=== PATIENT | male | born 1990 | race Caucasian/White ===

== ENCOUNTER 2016-07-08 18:04 | Emergency (ER) | payer MEDICAID ==
[2016-07-08] MEDS ORDERED: FLUCONAZOLE 100 MG TABLET PO STA (18:19)
[2016-07-08] MEDS ORDERED: SULFAMETH/TRIMETH DS 800/160 MG TABLET PO STA (18:19)
[2016-07-08] MEDS ORDERED: SULFAMETH/TRIMETH DS 800/160 MG TABLET PO ONE (18:25)
[2016-07-08] MEDS ORDERED: FLUCONAZOLE 100 MG TABLET ONE (18:25)
== END 2016-07-08 18:28 | disposition home or self-care (01) ==
DX: L30.8 Other specified dermatitis (principal); B37.89 Other sites of candidiasis; Z86.14 Personal history of Methicillin resistant Staphylococcus aureus infection; R03.0 Elevated blood-pressure reading, without diagnosis of hypertension
CPT/HCPCS: 99283; A9270

== ENCOUNTER 2017-11-20 05:14 | Outpatient (CLI) | payer MEDICAID | END 2017-11-20 05:15 | disposition critical access hospital (66) | LOC: EMS 05:14 | PROVIDERS: ATTEND Surgery | DX: R40.20 Unspecified coma (principal) | CPT/HCPCS: A0425; A0427; A0999 ==

== ENCOUNTER 2017-11-20 05:32 | Inpatient (IN) | payer MEDICAID ==
--- NOTE | 2017-11-20 05:42 | ED Physician Documentation ---
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 Father woke at 3:15 AM to get ready for work, heard patient was snoring loudly and thus he checked on patient, found him on the floor in the bathroom with a tray that had two pills on it as well as a rolled-up piece of paper. He found the patient to be unresponsive and thus called 911. EMS reports that when they arrived, patient had respiratory rate of 3-5 breaths/minute, unresponsive to painful stimulus, pale and diaphoretic. Given narcan en route to a total of 5mg with improvement in respirations. Pulse ox on EMS initial arrival was mid-80s. Review of Systems Unable to obtain: Unresponsive PD PAST MEDICAL HISTORY - Past Medical History Past Medical History: No - Past Surgical History Past Surgical History: No - Present Medications Home Medications: Ambulatory Orders Medication Instructions Recorded Confirmed No Known Home Medications 11/20/17 11/20/17 - Allergies Allergies/Adverse Reactions: Allergies Allergy/AdvReac Type Severity Reaction Status Date / Time No Known Drug Allergies Allergy Verified 11/20/17 06:02 - Living Situation Living Situation: reports: With family Living Arrangement: reports: At home - Social History Does the pt drink ETOH?: Yes Does the pt have substance abuse?: No PD ED PE NORMAL - Vitals Vital signs reviewed: Yes - HEENT HEENT: Atraumatic, Moist mucous membranes - Cardiac Cardiac: RRR, No murmur - Respiratory Respiratory: No respiratory distress - Abdomen Abdomen: Soft, Non distended, Other (obese) - Derm Derm: Normal color, Warm and dry - Extremities Extremities: No edema - Neuro Eye Opening: None Motor: Abnormal Extension Verbal: None GCS Score: 4 PD ED PE EXPANDED - General General: Unresponsive - HEENT HEENT: Atraumatic, PERRL (small but equal and reactive to light (3mm->2mm)) - Respiratory Respiratory: Other (sonorous respirations) Results - Vitals Vitals: Vital Signs - 24 hr 09/19/18 09/19/18 09/19/18 05:35 05:54 06:00 Temperature 36.2 C L Heart Rate 90 84 Respiratory 16 29 H Rate Blood Pressure 135/117 H 138/124 H 119/60 O2 Saturation 100 100 11/20/17 11/20/17 11/20/17 06:15 06:31 07:00 Temperature Heart Rate 85 94 92 Respiratory 26 H 26 H 24 Rate Blood Pressure 136/70 H 139/77 H 121/66 O2 Saturation 98 100 95 11/20/17 11/20/17 11/20/17 07:30 07:45 08:00 Temperature Heart Rate 93 93 94 Respiratory 26 H 25 H 30 H Rate Blood Pressure 115/68 116/56 L 115/60 O2 Saturation 92 92 94 11/20/17 11/20/17 11/20/17 08:15 08:30 08:45 Temperature Heart Rate 97 95 100 Respiratory 20 20 20 Rate Blood Pressure 104/68 114/70 112/51 L O2 Saturation 95 95 96 Oxygen O2 Source Nasal cannula Oxygen Flow Rate 2 - EKG (time done) No standard instances Rate: Rate (enter#) (89) Rhythm: NSR [place]: Normal Intervals: Normal MT QRS: Normal Ischemia: Normal ST segments, Hyperacute T waves (V2-V3) - Labs Labs: Laboratory Tests 11/20/17 11/20/17 11/20/17 05:38 05:38 05:38 WBC 20.2 H RBC 4.85 Hgb 15.0 Hct 46.6 MCV 96.1 H MCH 30.9 MCHC 32.1 RDW 13.0 Plt Count 255 MPV 6.8 L Neut # (Auto) Not Reportable Lymph # (Auto) Not Reportable [place] # (Auto) Not Reportable Eos # (Auto) Not Reportable Baso # (Auto) Not Reportable Absolute Nucleated RBC Not Reportable Total Counted 100 Band Neuts % (Manual) 9 Abnorm Lymph % (Manual) 0 Metamyelocytes % 2 H Myelocytes % 2 H Nucleated RBC % Not Reportable Neutrophils # (Manual) 15.6 H Lymphocytes # (Manual) 2.8 Monocytes # (Manual) 1.0 Eosinophils # (Manual) 0.0 Basophils # (Manual) 0.0 Differential Comment MANUAL DIFFERENTIAL Platelet Estimate NORMAL (130-450,000) RBC Morph Micro Appear NORMAL APPEARANCE Sodium 141 Potassium 4.9 Chloride 103 Carbon Dioxide 19 L Anion Gap 19.0 H BUN 14 Creatinine 2.0 H Estimated GFR (MDRD) 40 L Glucose 253 H Lactic Acid Calcium 8.3 L Total Creatine Kinase 254 CK-MB (CK-2) 10.5 H Troponin I 0.05 Urine Color Urine Clarity Urine pH Ur Specific [place] Urine Protein Urine Glucose (UA) Urine Ketones Urine Occult Blood Urine Nitrite Urine Bilirubin Urine Urobilinogen Ur Leukocyte Esterase Urine RBC Urine WBC Ur Squamous Epith Cells Urine Bacteria Ur Microscopic Review Urine Culture Comments Urine Opiates Screen Ur Oxycodone Screen Urine Methadone Screen Ur Propoxyphene Screen Ur Barbiturates Screen Ur Tricyclics Screen Ur Phencyclidine Scrn Ur Amphetamine Screen U Methamphetamines Scrn U Benzodiazepines Scrn Urine Cocaine Screen U Cannabinoids Screen Ethyl Alcohol 177.9 11/20/17 11/20/17 05:38 05:40 WBC RBC Hgb Hct MCV MCH MCHC RDW Plt Count MPV Neut # (Auto) Lymph # (Auto) [place] # (Auto) Eos # (Auto) Baso # (Auto) Absolute Nucleated RBC Total Counted Band [place] % (Manual) Abnorm Lymph % (Manual) Metamyelocytes % Myelocytes % Nucleated RBC % Neutrophils # (Manual) Lymphocytes # (Manual) Monocytes # (Manual) Eosinophils # (Manual) Basophils # (Manual) Differential Comment Platelet Estimate RBC Morph Micro Appear Sodium Potassium Chloride Carbon Dioxide Anion Gap BUN Creatinine Estimated GFR (MDRD) Glucose Lactic Acid 8.0 H* Calcium Total Creatine Kinase CK-MB (CK-2) Troponin I Urine Color YELLOW Urine Clarity CLEAR Urine pH 6.0 Ur Specific [place] 1.020 Urine Protein 100 H Urine Glucose (UA) 100 H Urine Ketones NEGATIVE Urine Occult Blood MODERATE H Urine Nitrite NEGATIVE Urine Bilirubin NEGATIVE Urine Urobilinogen 0.2 (NORMAL) Ur Leukocyte Esterase NEGATIVE Urine RBC 6-10 H Urine WBC 0-3 Ur Squamous Epith Cells FEW Squamous Urine Bacteria Few Ur Microscopic Review INDICATED Urine Culture Comments NOT INDICATED Urine Opiates Screen NEGATIVE Ur Oxycodone Screen NEGATIVE Urine Methadone Screen NEGATIVE Ur Propoxyphene Screen NEGATIVE Ur Barbiturates Screen NEGATIVE Ur Tricyclics Screen NEGATIVE Ur Phencyclidine Scrn NEGATIVE Ur Amphetamine Screen NEGATIVE U Methamphetamines Scrn NEGATIVE U Benzodiazepines Scrn NEGATIVE Urine Cocaine Screen NEGATIVE U Cannabinoids Screen POSITIVE H Ethyl Alcohol - Rads (name of study) CT head Radiology: Prelim report reviewed, See rad report chest xray Radiology: Prelim report reviewed, See rad report PD MEDICAL DECISION MAKING - ED course Complexity details: reviewed old records, reviewed results, re-evaluated patient, considered differential, d/w patient, d/w family ED course: after tests resulted, patient remained unresponsive. Given 0.8mg narcan IV which did have a noticeable, immediate effect: within 30-45 seconds of receiving this dose, he opened his eyes briefly, had brief purposeful movement of arms, and responded to a few questions with nodding of his head. He rapidly fell back asleep. Eventually, he again became sonorous with shallow respirations and decreasing pulse ox (no lower than 90%, but trending downwards), and thus IV narcan drip started. He responded well to this and gradually exhibited improved mentation along with normalization of his pulse ox (with supplemental oxygen) and respiratory rate and depth of respirations. He initially denied taking any pills last night, but when pressed, he tells me "maybe percocet". - Sepsis Event Vital Signs: Vital Signs - 24 hr 11/20/17 11/20/17 11/20/17 05:35 05:54 06:00 Temperature 36.2 C L Heart Rate 90 84 Respiratory 16 29 H Rate Blood Pressure 135/117 H 138/124 H 119/60 O2 Saturation 100 100 11/20/17 11/20/17 11/20/17 06:15 06:31 07:00 Temperature Heart Rate 85 94 92 Respiratory 26 H 26 H 24 Rate Blood Pressure 136/70 H 139/77 H 121/66 O2 Saturation 98 100 95 11/20/17 11/20/17 11/20/17 07:30 07:45 08:00 Temperature Heart Rate 93 93 94 Respiratory 26 H 25 H 30 H Rate Blood Pressure 115/68 116/56 L 115/60 O2 Saturation 92 92 94 11/20/17 11/20/17 11/20/17 08:15 08:30 08:45 Temperature Heart Rate 97 95 100 Respiratory 20 20 20 Rate Blood Pressure 104/68 114/70 112/51 L O2 Saturation 95 95 96 Oxygen O2 Source Nasal cannula Oxygen Flow Rate 2 Departure - Departure Disposition: 66 [facility] DC/Xfer Clinical Impression: Overdose of drug Condition: Stable
[2017-11-20 05:52] LABS: MUDS CUTOFF CONCENTRATIONS CUTOFF CONC BELOW:
[2017-11-20 05:56] LABS: BILIRUBIN,URINE NEGATIVE (NEGATIVE); GLUCOSE, URINE (UA) 100 mg/dL (NEGATIVE); KETONES,URINE (UA) NEGATIVE (NEGATIVE); LEUKOCYTE ESTERASE, URINE NEGATIVE (NEGATIVE); NITRITE,URINE NEGATIVE (NEGATIVE); OCCULT BLOOD,URINE MODERATE (NEGATIVE); PROTEIN,URINE 100 mg/dL (NEGATIVE); UROBILINOGEN,URINE 0.2 (NORMAL) E.U./dL (NORMAL)
[2017-11-20 06:00] LABS: BASOPHILS % (AUTO) 0.4 %; EOSINOPHILS % (AUTO) 0.7 %; LYMPHOCYTES % (AUTO) 18.1 %; MEAN CORPUSCULAR HEMOGLOBIN 30.9 pg (27.0-31.0); MEAN CORPUSCULAR HGB CONC 32.1 g/dL (32.0-36.0); MEAN CORPUSCULAR VOLUME 96.1 fL (80.0-94.0); MEAN PLATELET VOLUME 6.8 fL (7.4-11.4); NEUTROPHILS % (AUTO) 79.8 %; PLT - PLATELET COUNT 255 10^3/uL (130-450); RED BLOOD COUNT 4.85 10^6/uL (4.70-6.10); WHITE BLOOD COUNT 20.2 x10^3/uL (4.8-10.8)
[2017-11-20 06:03] LABS: ABNORMAL LYMPHS % (MANUAL) 0 %; CALCIUM 8.3 mg/dL (8.5-10.3)
[2017-11-20 06:04] LABS: CLARITY,URINE CLEAR (CLEAR)
[2017-11-20 06:06] LABS: AMPHETAMINE SCREEN,URINE NEGATIVE (NEGATIVE); BENZODIAZEPINES SCREEN, URINE NEGATIVE (NEGATIVE); COCAINE SCREEN URINE NEGATIVE (NEGATIVE); METHADONE SCREEN, URINE NEGATIVE (NEGATIVE); METHAMPHETAMINES SCREEN, URINE NEGATIVE (NEGATIVE); OPIATE SCREEN, URINE NEGATIVE (NEGATIVE); OXYCODONE SCREEN, URINE NEGATIVE (NEGATIVE); PROPOXYPHENE SCREEN, URINE NEGATIVE (NEGATIVE); TRICYCLIC ANTIDEPRESSANT,URINE NEGATIVE (NEGATIVE)
[2017-11-20 06:10] LABS: SQUAMOUS EPITHELIAL CELL,UR FEW Squamous (<= Few)
[2017-11-20 06:11] LABS: TROPONIN I 0.05 ng/mL (<0.49)
[2017-11-20 06:11] LABS: BACTERIA,URINE Few /HPF (None Seen)
[2017-11-20] MEDS ORDERED: SODIUM CHLORIDE 0.9% 1,000 ML IV STA ×2 (06:11→06:18)
[2017-11-20 06:13] LABS: CREATINE KINASE MB 10.5 ng/mL (0.6-6.3)
[2017-11-20] MEDS ORDERED: NALOXONE 0.4 MG/ML VIAL IVP STA (06:21)
[2017-11-20 06:28] LABS: BAND NEUTROPHILS % (MANUAL) 9 %; DIFFERENTIAL COMMENT MANUAL DIFFERENTIAL; LYMPHOCYTES # (MANUAL) 2.8 10^3/uL (1.5-3.5); LYMPHOCYTES % (MANUAL) 14 %; METAMYELOCYTES % (MANUAL) 2 %; MYELOCYTES % (MANUAL) 2 %; NEUTROPHILS # (MANUAL) 15.6 10^3/uL (1.5-6.6); NEUTROPHILS % (MANUAL) 68 %; PLATELET ESTIMATE, MANUAL NORMAL (130-450,000) (NORMAL); RBC MORPHOLOGY (MULTIPLE) NORMAL APPEARANCE (NORMAL)
--- NOTE | 2017-11-20 06:30 | XRAY Report ---
Reason: AMS Procedure Date: 11/20/2017 Accession Number: [id number] / [id number] Procedure: XR - Chest 2 View X-Ray CPT Code: 40273 FULL RESULT: EXAM: CHEST RADIOGRAPHY EXAM DATE: 11/20/2017 06:18 AM. CLINICAL HISTORY: Found down, unresponsive. COMPARISON: None. TECHNIQUE: 2 views. FINDINGS: Lungs/Pleura: Lung volumes are small. Body habitus compromises exam sensitivity and specificity. There is possible hazy left lung opacity. No large effusion or definite pneumothorax. Mediastinum: Heart and mediastinal contours are unremarkable. Other: None. IMPRESSION: Body habitus reduces sensitivity and specificity. Possible hazy left lung opacity may be due to artifact, asymmetric edema and/or atelectasis. No consolidation. RADIA
--- NOTE | 2017-11-20 06:36 | CT Report ---
Reason: AMS Procedure Date: 11/20/2017 Accession Number: [id number] / [id number] Procedure: CT - Head W/O CPT Code: FULL RESULT: EXAM: CT HEAD EXAM DATE: 11/20/2017 06:00 AM. CLINICAL HISTORY: Altered mental status. COMPARISON: None. TECHNIQUE: Multiaxial CT images were obtained from the foramen magnum to the vertex. Reformats: Sagittal and coronal. IV contrast: None. In accordance with CT protocol optimization, one or more of the following dose reduction techniques were utilized for this exam: automated exposure control, adjustment of mA and/or KV based on patient size, or use of iterative reconstructive technique. FINDINGS: Parenchyma: No intraparenchymal hemorrhage. No evidence of mass, midline shift, or CT findings of infarction. Valentine-white differentiation is distinct. Extraaxial Spaces: Normal for age. No subdural or epidural collections identified. Ventricles: Normal in size and position. Sinuses and Orbits: Imaged paranasal sinuses, orbits, and mastoids show no significant abnormality. Bones: No evidence of fracture or calvarial defect. Other: None. IMPRESSION: Normal head CT. RADIA
[2017-11-20] MEDS ORDERED: NALOXONE 2 MG in SODIUM CHLORIDE 0.9% 495 ML IVP STA (07:35)
[2017-11-20] MEDS ORDERED: PROCHLORPERAZINE 10 MG/2 ML VIAL IVP PRN (12:54)
[2017-11-20] MEDS ORDERED: SODIUM CHLORIDE FLUSH 0.9% 10 ML SYRINGE IVP PRN (12:54)
[2017-11-20] MEDS ORDERED: NALOXONE 2 MG in SODIUM CHLORIDE 0.9% 495 ML IVP SCH (13:00)
[2017-11-20] MEDS: D5NS W/20 MEQ KCL 1,000 ML IV SCH (13:58)
[2017-11-20] MEDS: FAMOTIDINE 20 MG/50 ML 50 ML IV SCH (14:24)
[2017-11-20] MEDS: SODIUM CHLORIDE FLUSH 0.9% 10 ML SYRINGE IVP SCH (16:27)
[2017-11-21] MEDS: D5NS W/20 MEQ KCL 1,000 ML IV SCH ×3 (00:09→20:30)
[2017-11-21] MEDS: SODIUM CHLORIDE FLUSH 0.9% 10 ML SYRINGE IVP SCH ×3 (01:03→20:32)
--- NOTE | 2017-11-21 01:37 | HISTORY & PHYSICAL EXAMINATION ---
DATE OF SERVICE: 11/20/2017 Physician: Missy Valdez MD HISTORY OF PRESENT ILLNESS: This is a 27-year-old, white male with a history of obesity. He takes no routine prescription medications. The patient went out alcohol drinking with 2 friends; he normally consumes either beer or half a fifth of vodka when he drinks alcohol, but this time he drank an entire gallon of his friend's moonshine. Following that, he thinks that he tried to use oxycodone by crushing it and snorting it. He remembers "blacking out" from the alcohol use and does not remember coming home or trying to snort drugs in his home. The father heard gurgling and went to check on the patient, and found him on the floor of the bathroom, nearly comatose. He called 911. The patient's respiratory rate was 3-5 and he had decorticate posturing. In the ambulance, he was given Narcan with some awakening and then this was repeated in the emergency room, and he was put on the Narcan drip for further neurologic improvement, and he awoke and was communicating. He is getting admitted to the ICU because of abnormal blood tests and a drug overdose. PAST MEDICAL HISTORY: None. MEDICATIONS: None. ALLERGIES: NONE. SOCIAL HISTORY: The patient quit smoking 2 weeks ago, does drink alcohol, has alcohol binges, but not alcohol abuse daily. He has tried cocaine in the past and he has tried snorting oxycodone in the past. The father brought the tablets that were in the bathroom and these were compared with a pill identifying anne by the emergency room doctor. The pill was a small, round, blue, squared pill with a capital M on it and a square border with the #30 on the other side. This was consistent with oxycodone hydrochloride 30 mg, but it was of concern that this was a counterfeit opioid pill containing fentanyl (see ER doctor's note). REVIEW OF SYSTEMS: A comprehensive review of systems was performed and the pertinent positives are in the HPI. PHYSICAL EXAMINATION GENERAL: Obese, young, white male. He is in no distress. He is intermittently falling asleep as we speak and appears comfortable. VITAL SIGNS: Blood pressure 113/80, heart rate 74 and sinus rhythm, 98% saturation on 2 liters, respiratory rate 24, afebrile. HEENT: Unremarkable. Oral mucosa is moist. His dentition is good. NECK: Without JVD or carotid bruits. LUNGS: Clear. HEART: Sounds normal. ABDOMEN: Soft, nontender. Normal bowel sounds. EXTREMITIES: No clubbing, cyanosis, edema. No track carmona from IV use. NEUROLOGIC: Somnolent, but otherwise grossly intact. LABORATORIES: Lactic acid level 8.0. Troponin 0.05. White blood count 20.2 with a left shift, hemoglobin 15, platelet count 255. No INR was done. Urine showed protein and glucose that were elevated, moderate occult blood and few bacteria, but also few squamous cells. His urine drug screen was negative for everything except marijuana, and his alcohol level was 177.9. A chest x-ray was unremarkable. A head CT showed: normal head CT. EKG: Sinus rhythm at a rate of 89, somewhat peaked T waves in leads V2 through V5, but probably normal variant. IMPRESSION/DIAGNOSES 1. Drug overdose, with resultant comatose condition. 2. Alcohol intoxication, adding to the obtundation. 3. Elevated white blood count. Evaluate for sepsis vs from stress of coma. 4. Elevated lactic acid level. Evaluate for sepsis vs from stress of coma. PLAN: Admit the patient to the ICU. Start IV fluids. Follow his lactic acid level every 3 hours. Continue with the Narcan drip (this was just discontinued in the emergency room since he is able to awaken to voice). Start a clear liquid diet and advance as tolerated. Follow his CBC, BMP daily. The patient is able to communicate and states that he had no intention of overdosing or killing himself, and admits that he was making stupid decisions when he had "blacked out" from excessive alcohol use. The father confirms that the patient is usually very honest and that he knows about the compounding effects of alcohol with drugs. The patient does request speaking to a psychologist or a counselor because he has been somewhat upset over breaking up with a relationship that he had. I will ask social workers to screen him as well. CODE STATUS: FULL CODE. DEEP VENOUS THROMBOSIS PROPHYLAXIS: SCDs. ATTESTATION: The patient is expected to be discharged or transferred to another facility within 96 hours: Yes. TD: 11/20/2017 20:34 REMY
[2017-11-21 05:27] LABS: BASOPHILS % (AUTO) 0.2 %; EOSINOPHILS # (AUTO) 0.1 10^3/uL (0.0-0.7); EOSINOPHILS % (AUTO) 0.6 %; HGB - HEMOGLOBIN 12.7 g/dL (14.0-18.0); LYMPHOCYTES # (AUTO) 1.9 10^3/uL (1.5-3.5); LYMPHOCYTES % (AUTO) 19.4 %; MEAN CORPUSCULAR HEMOGLOBIN 31.4 pg (27.0-31.0); MEAN CORPUSCULAR HGB CONC 33.6 g/dL (32.0-36.0); MEAN CORPUSCULAR VOLUME 93.5 fL (80.0-94.0); MEAN PLATELET VOLUME 7.1 fL (7.4-11.4); MONOCYTES # (AUTO) 0.5 10^3/uL (0.0-1.0); MONOCYTES % (AUTO) 5.5 %; NEUTROPHILS # (AUTO) 7.3 10^3/uL (1.5-6.6); NEUTROPHILS % (AUTO) 74.3 %; PLT - PLATELET COUNT 189 10^3/uL (130-450); RED BLOOD COUNT 4.04 10^6/uL (4.70-6.10); RED CELL DISTRIBUTION WIDTH 12.9 % (12.0-15.0); WHITE BLOOD COUNT 9.9 x10^3/uL (4.8-10.8)
[2017-11-21 05:34] LABS: CALCIUM 7.8 mg/dL (8.5-10.3); CREATININE 1.1 mg/dL (0.6-1.2)
[2017-11-21 06:51] LABS: VBG PH 7.33 (7.31-7.41)
[2017-11-21] MEDS: FAMOTIDINE 20 MG/50 ML 50 ML IV SCH (09:09)
[2017-11-21] MEDS: CALCIUM CITRATE 250 MG TABLET PO SCH ×4 (10:08→22:05)
[2017-11-21] MEDS: POLYETHYLENE GLYCOL 3350 17 GM PACKET PO SCH (10:08)
[2017-11-21] MEDS ORDERED: ONDANSETRON 4 MG/2 ML VIAL IVP PRN (12:24)
--- NOTE | 2017-11-21 18:13 | PROVIDER PROGRESS NOTE ---
Assessment/Plan - Problem List (1) Opioid overdose Qualifiers: Encounter type: subsequent encounter Injury intent: accidental or unintentional Qualified Code(s): T40.2X1D - Poisoning by other opioids, accidental (unintentional), subsequent encounter Assessment/Plan: Patient presented to the emergency department with what appears to have been a opioid overdose. The patient was intoxicated with alcohol and blacked out. He is presumed to have taken what he thought was oxycodone but may have been fentanyl which he received off the street. Due to this the patient had severe respiratory depression and presented with a severe lactic acidosis of 8.0. The patient was placed on a Narcan drip and given IV fluids also initially placed on BiPAP and on oxygen. The patient seems to be improving significantly and is back to his normal mentation. The patient states he did not try to intentionally overdose or kill himself. Resolved (2) Alcohol intoxication Qualifiers: Complication of substance-induced condition: with unspecified complication Qualified Code(s): F10.929 - Alcohol use, unspecified with intoxication, unspecified Assessment/Plan: The patient drank excessive amount of alcohol prior to taking opioids. The patient came into the hospital with a blood alcohol level of 177.9. The patient appears not to be sober. The patient was counseled on the need to cut down on alcohol consumption. The patient appeared to understand this. Resolved (3) Rhabdomyolysis Qualifiers: Rhabdomyolysis type: non-traumatic Qualified Code(s): M62.82 - Rhabdomyolysis Assessment/Plan: Due to the drug overdose the patient developed rhabdomyolysis with CK elevated to 4034. The patient has been given IV fluids and CK seems to be improving as it is down to 2793 today. We will continue to monitor the patient's CK if it continues to drop the patient may be able to be discharged tomorrow. (4) DARY (acute kidney injury) Assessment/Plan: The patient did have acute kidney injury on presentation with a creatinine of 2.0. The patient's likely cause of acute kidney injury was dehydration from alcohol consumption as well as endorgan damage from opiate overdose. The patient's creatinine is improving with IV fluids and treatment of his opiate overdose. The patient's creatinine is down to 1.1 today. (5) Lactic acidosis Assessment/Plan: Patient presented with a severe lactic acidosis of 8.0 secondary to opiate overdose and likely hypotension and hypoperfusion of and organs. The patient did improve with Narcan. Patient's lactic acidosis back to normal. Resolved. (6) Narcotic-induced respiratory depression Assessment/Plan: Results with Narcan drip and BiPAP. Patient now on room air and has normal respirations. - Current Meds Current Meds: Current Medications Generic Name Dose Route Start Last Admin Trade Name Freq PRN Reason Stop Dose Admin Calcium Citrate 500 mg 11/21/17 09:00 11/21/17 15:10 PO 11/21/17 21:01 500 mg QID DANIEL Administration Protocol Potassium Chloride/Dextrose/Sod Cl 1,000 mls @ 100 mls/hr 11/20/17 13:00 11/21/17 10:42 IV 100 mls/hr .Q10H DANIEL Administration Famotidine 50 mls @ 100 mls/hr 11/20/17 13:00 11/21/17 09:40 Pepcid 20 Mg/50 Ml IV Infused DAILY DANIEL Infusion Polyethylene Glycol 17 gm 11/21/17 09:00 11/21/17 10:08 Miralax PO Not Given DAILY DANIEL Sodium Chloride 10 ml 11/20/17 17:00 11/21/17 10:09 Normal Saline Flush 0.9% IVP Not Given 0100,0900,1700 DANIEL Sodium Chloride 10 ml 11/20/17 12:54 11/20/17 14:00 Normal Saline Flush 0.9% IVP 10 ml PRN PRN Administration NEEDED PER PROVIDER ORDERS - Lab Result Lab results reviewed: Yes Fish Bone Diagrams: 11/21/17 04:30 11/21/17 04:30 Other Lab Results: Laboratory Results WBC 9.9 x10^3/uL (4.8-10.8) 11/21/17 04:30 RBC 4.04 10^6/uL (4.70-6.10) L 11/21/17 04:30 Hgb 12.7 g/dL (14.0-18.0) L 11/21/17 04:30 Hct 37.8 % (42.0-52.0) L 11/21/17 04:30 MCV 93.5 fL (80.0-94.0) 11/21/17 04:30 MCH 31.4 pg (27.0-31.0) H 11/21/17 04:30 MCHC 33.6 g/dL (32.0-36.0) 11/21/17 04:30 RDW 12.9 % (12.0-15.0) 11/21/17 04:30 Plt Count 189 10^3/uL (130-450) 11/21/17 04:30 MPV 7.1 fL (7.4-11.4) L 11/21/17 04:30 Neut # (Auto) 7.3 10^3/uL (1.5-6.6) H 11/21/17 04:30 Lymph # (Auto) 1.9 10^3/uL (1.5-3.5) 11/21/17 04:30 [place] # (Auto) 0.5 10^3/uL (0.0-1.0) 11/21/17 04:30 Eos # (Auto) 0.1 10^3/uL (0.0-0.7) 11/21/17 04:30 Baso # (Auto) 0.0 10^3/uL (0.0-0.1) 11/21/17 04:30 Absolute Nucleated RBC 0.01 x10^3/uL 11/21/17 04:30 Total Counted 100 11/20/17 05:38 Band Neuts % (Manual) 9 % (0-10) 11/20/17 05:38 Abnorm Lymph % (Manual) 0 % 11/20/17 05:38 Metamyelocytes % 2 % (-0) H 11/20/17 05:38 Myelocytes % 2 % (-0) H 11/20/17 05:38 Nucleated RBC % 0.1 /100WBC 11/21/17 04:30 Neutrophils # (Manual) 15.6 10^3/uL (1.5-6.6) H 11/20/17 05:38 Lymphocytes # (Manual) 2.8 10^3/uL (1.5-3.5) 11/20/17 05:38 Monocytes # (Manual) 1.0 10^3/uL (0.0-1.0) 11/20/17 05:38 Eosinophils # (Manual) 0.0 10^3/uL (0-0.7) 11/20/17 05:38 Basophils # (Manual) 0.0 10^3/uL (0-0.1) 11/20/17 05:38 Differential Comment MANUAL DIFFERENTIAL 11/20/17 05:38 Platelet Estimate NORMAL (130-450,000) (NORMAL) 11/20/17 05:38 RBC Morph Micro Appear NORMAL APPEARANCE (NORMAL) 11/20/17 05:38 VBG pH 7.330 (7.31-7.41) 11/21/17 06:20 Ionized Calcium 1.07 mmol/L (1.15-1.33) L 11/21/17 06:20 Sodium 135 mmol/L (135-145) 11/21/17 04:30 Potassium 4.4 mmol/L (3.5-5.0) 11/21/17 04:30 Chloride 101 mmol/L (101-111) 11/21/17 04:30 Carbon Dioxide 28 mmol/L (21-32) 11/21/17 04:30 Anion Gap 6.0 (6-13) 11/21/17 04:30 BUN 17 mg/dL (6-20) 11/21/17 04:30 Creatinine 1.1 mg/dL (0.6-1.2) 11/21/17 04:30 Estimated GFR (MDRD) 80 (>89) L 11/21/17 04:30 Glucose 124 mg/dL (70-100) H 11/21/17 04:30 Lactic Acid 1.5 mmol/L (0.5-2.2) 11/20/17 15:03 Calcium 7.8 mg/dL (8.5-10.3) L 11/21/17 04:30 Total Creatine Kinase 2793 IU/L (22-269) H* 11/21/17 16:47 CK-MB (CK-2) 10.5 ng/mL (0.6-6.3) H 11/20/17 05:38 Troponin I 0.05 ng/mL (<0.49) 11/20/17 05:38 Albumin 3.5 g/dL (3.2-5.5) 11/21/17 04:30 Urine Color YELLOW 11/20/17 05:40 Urine Clarity CLEAR (CLEAR) 11/20/17 05:40 Urine pH 6.0 PH (5.0-7.5) 11/20/17 05:40 Ur Specific [place] 1.020 (1.002-1.030) 11/20/17 05:40 Urine Protein 100 mg/dL (NEGATIVE) H 11/20/17 05:40 Urine Glucose (UA) 100 mg/dL (NEGATIVE) H 11/20/17 05:40 Urine Ketones NEGATIVE mg/dL (NEGATIVE) 11/20/17 05:40 Urine Occult Blood MODERATE (NEGATIVE) H 11/20/17 05:40 Urine Nitrite NEGATIVE (NEGATIVE) 11/20/17 05:40 Urine Bilirubin NEGATIVE (NEGATIVE) 11/20/17 05:40 Urine Urobilinogen 0.2 (NORMAL) E.U./dL (NORMAL) 11/20/17 05:40 Ur Leukocyte Esterase NEGATIVE (NEGATIVE) 11/20/17 05:40 Urine RBC 6-10 /HPF (0-5) H 11/20/17 05:40 Urine WBC 0-3 /HPF (0-3) 11/20/17 05:40 Ur Squamous Epith Cells FEW Squamous (<= Few) 11/20/17 05:40 Urine Bacteria Few /HPF (None Seen) 11/20/17 05:40 Ur Microscopic Review INDICATED 11/20/17 05:40 Urine Culture Comments NOT INDICATED 11/20/17 05:40 Urine Opiates Screen NEGATIVE (NEGATIVE) 11/20/17 05:40 Ur Oxycodone Screen NEGATIVE (NEGATIVE) 11/20/17 05:40 Urine Methadone Screen NEGATIVE (NEGATIVE) 11/20/17 05:40 Ur Propoxyphene Screen NEGATIVE (NEGATIVE) 11/20/17 05:40 Ur Barbiturates Screen NEGATIVE (NEGATIVE) 11/20/17 05:40 Ur Tricyclics Screen NEGATIVE (NEGATIVE) 11/20/17 05:40 Ur Phencyclidine Scrn NEGATIVE (NEGATIVE) 11/20/17 05:40 Ur Amphetamine Screen NEGATIVE (NEGATIVE) 11/20/17 05:40 U Methamphetamines Scrn NEGATIVE (NEGATIVE) 11/20/17 05:40 U Benzodiazepines Scrn NEGATIVE (NEGATIVE) 11/20/17 05:40 Urine Cocaine Screen NEGATIVE (NEGATIVE) 11/20/17 05:40 U Cannabinoids Screen POSITIVE (NEGATIVE) H 11/20/17 05:40 Ethyl Alcohol 177.9 mg/dL 11/20/17 05:38 - Diagnostic Imaging Results Diagnostic Imaging Results: Final report reviewed - Additional Planning Condition/Complexity: Guarded My Orders: My Active Orders 11/21/17 12:24 Ondansetron Inj [Zofran Inj] 4 mg IVP Q4HR PRN 11/22/17 05:00 CBC W/O DIFF (HEMOGRAM) [HEME] DAILYLAB CK- CREATINE KINASE [CHEM] 0500 CMP, RFLX TO IONIZED CA IF [CHEM] DAILYLAB MAGNESIUM [CHEM] DAILYLAB PHOSPHORUS [CHEM] DAILYLAB Plan Discussed with:: Patient, Family, Father Time Spent: 31-60 minutes Subjective - Subjective Patient Reports: Feeling Better, Resting Comfortably, Other (Generalized weakness and body aches) Nursing Reports: No Complaints Objective Vital Signs: Vital Signs - 24 hr 11/20/17 11/20/17 11/20/17 19:00 20:00 21:00 Temperature 37.1 C Heart Rate [ 78 74 74 Monitoring electrodes] Respiratory 26 H 25 H 22 Rate Blood Pressure 118/57 L 115/57 L 110/65 [Right Brachial artery] O2 Saturation 98 99 100 11/20/17 11/20/17 11/21/17 22:00 23:00 00:00 Temperature 37.1 C Heart Rate [ 74 63 68 Monitoring electrodes] Respiratory 16 22 22 Rate Blood Pressure 97/61 119/74 122/68 [Right Brachial artery] O2 Saturation 97 99 99 11/21/17 11/21/17 11/21/17 01:00 02:00 03:00 Temperature Heart Rate [ 64 73 65 Monitoring electrodes] Respiratory 19 23 20 Rate Blood Pressure 113/68 117/66 118/65 [Right Brachial artery] O2 Saturation 100 99 98 11/21/17 11/21/17 11/21/17 04:00 05:00 06:00 Temperature Heart Rate [ 61 60 61 Monitoring electrodes] Respiratory 21 21 20 Rate Blood Pressure 112/68 127/64 127/75 [Right Brachial artery] O2 Saturation 99 94 98 11/21/17 11/21/17 11/21/17 07:00 08:00 09:00 Temperature 36.8 C Heart Rate [ 66 70 54 L Monitoring electrodes] Respiratory 20 17 16 Rate Blood Pressure 117/69 133/71 H 134/80 H [Right Brachial artery] O2 Saturation 98 97 94 11/21/17 11/21/17 11/21/17 10:00 11:00 12:00 Temperature Heart Rate [ 63 58 L 88 Monitoring electrodes] Respiratory 15 23 25 H Rate Blood Pressure 153/102 H 147/80 H 147/80 H [Right Brachial artery] O2 Saturation 94 96 11/21/17 11/21/17 11/21/17 13:00 14:00 15:00 Temperature 37.5 C Heart Rate [ 63 60 61 Monitoring electrodes] Respiratory 22 28 H 28 H Rate Blood Pressure 139/73 H 129/80 127/77 [Right Brachial artery] O2 Saturation 95 96 96 11/21/17 11/21/17 11/21/17 16:00 17:00 18:00 Temperature 37.4 C Heart Rate [ 56 L 65 64 Monitoring electrodes] Respiratory 28 H 24 73 H Rate Blood Pressure 142/75 H 163/86 H [Right Brachial artery] O2 Saturation 95 95 96 Oxygen O2 Source Room air Oxygen Flow Rate 2 I&O (Last 24 Hrs): Intake and Output Totals x24h 11/19/17 11/20/17 11/21/17 23:59 23:59 23:59 Intake Total 3423.333 3175 Output Total 19995 Balance 5564.453 6348 General: Alert, Oriented x3, Cooperative, No acute distress HEENT: Atraumatic, PERRLA, EOMI, Mucous membr. moist/pink Neck: Supple, No JVD, No thyromegaly, +2 carotid pulse wo bruit, No LAD Lymphatic: no adenopathy Neuro: Alert, CN 2-12 Grossly Intact, Oriented Times 3 Cardiovascular: Regular rate, Normal S1, Normal S2, No murmurs Respiratory: Chest non-tender, No respiratory distress, Breath sounds nml Abdomen: Normal bowel sounds, Soft, No tenderness, No hepatospenomegaly, No masses Extremities: No clubbing, No cyanosis, No edema, Normal pulses, No tenderness/sw elling Skin: No rashes, No breakdown, No significant lesion - Results Results: Laboratory Results WBC 9.9 x10^3/uL (4.8-10.8) 11/21/17 04:30 RBC 4.04 10^6/uL (4.70-6.10) L 11/21/17 04:30 Hgb 12.7 g/dL (14.0-18.0) L 11/21/17 04:30 Hct 37.8 % (42.0-52.0) L 11/21/17 04:30 MCV 93.5 fL (80.0-94.0) 11/21/17 04:30 MCH 31.4 pg (27.0-31.0) H 11/21/17 04:30 MCHC 33.6 g/dL (32.0-36.0) 11/21/17 04:30 RDW 12.9 % (12.0-15.0) 11/21/17 04:30 Plt Count 189 10^3/uL (130-450) 11/21/17 04:30 MPV 7.1 fL (7.4-11.4) L 11/21/17 04:30 Neut # (Auto) 7.3 10^3/uL (1.5-6.6) H 11/21/17 04:30 Lymph # (Auto) 1.9 10^3/uL (1.5-3.5) 11/21/17 04:30 [place] # (Auto) 0.5 10^3/uL (0.0-1.0) 11/21/17 04:30 Eos # (Auto) 0.1 10^3/uL (0.0-0.7) 11/21/17 04:30 Baso # (Auto) 0.0 10^3/uL (0.0-0.1) 11/21/17 04:30 Absolute Nucleated RBC 0.01 x10^3/uL 11/21/17 04:30 Total Counted 100 11/20/17 05:38 Band Neuts % (Manual) 9 % (0-10) 11/20/17 05:38 Abnorm Lymph % (Manual) 0 % 11/20/17 05:38 Metamyelocytes % 2 % (-0) H 11/20/17 05:38 Myelocytes % 2 % (-0) H 11/20/17 05:38 Nucleated RBC % 0.1 /100WBC 11/21/17 04:30 Neutrophils # (Manual) 15.6 10^3/uL (1.5-6.6) H 11/20/17 05:38 Lymphocytes # (Manual) 2.8 10^3/uL (1.5-3.5) 11/20/17 05:38 Monocytes # (Manual) 1.0 10^3/uL (0.0-1.0) 11/20/17 05:38 Eosinophils # (Manual) 0.0 10^3/uL (0-0.7) 11/20/17 05:38 Basophils # (Manual) 0.0 10^3/uL (0-0.1) 11/20/17 05:38 Differential Comment MANUAL DIFFERENTIAL 11/20/17 05:38 Platelet Estimate NORMAL (130-450,000) (NORMAL) 11/20/17 05:38 RBC Morph Micro Appear NORMAL APPEARANCE (NORMAL) 11/20/17 05:38 VBG pH 7.330 (7.31-7.41) 11/21/17 06:20 Ionized Calcium 1.07 mmol/L (1.15-1.33) L 11/21/17 06:20 Sodium 135 mmol/L (135-145) 11/21/17 04:30 Potassium 4.4 mmol/L (3.5-5.0) 11/21/17 04:30 Chloride 101 mmol/L (101-111) 11/21/17 04:30 Carbon Dioxide 28 mmol/L (21-32) 11/21/17 04:30 Anion Gap 6.0 (6-13) 11/21/17 04:30 BUN 17 mg/dL (6-20) 11/21/17 04:30 Creatinine 1.1 mg/dL (0.6-1.2) 11/21/17 04:30 Estimated GFR (MDRD) 80 (>89) L 11/21/17 04:30 Glucose 124 mg/dL (70-100) H 11/21/17 04:30 Lactic Acid 1.5 mmol/L (0.5-2.2) 11/20/17 15:03 Calcium 7.8 mg/dL (8.5-10.3) L 11/21/17 04:30 Total Creatine Kinase 2793 IU/L (22-269) H* 11/21/17 16:47 CK-MB (CK-2) 10.5 ng/mL (0.6-6.3) H 11/20/17 05:38 Troponin I 0.05 ng/mL (<0.49) 11/20/17 05:38 Albumin 3.5 g/dL (3.2-5.5) 11/21/17 04:30 Urine Color YELLOW 11/20/17 05:40 Urine Clarity CLEAR (CLEAR) 11/20/17 05:40 Urine pH 6.0 PH (5.0-7.5) 11/20/17 05:40 Ur Specific [place] 1.020 (1.002-1.030) 11/20/17 05:40 Urine Protein 100 mg/dL (NEGATIVE) H 11/20/17 05:40 Urine Glucose (UA) 100 mg/dL (NEGATIVE) H 11/20/17 05:40 Urine Ketones NEGATIVE mg/dL (NEGATIVE) 11/20/17 05:40 Urine Occult Blood MODERATE (NEGATIVE) H 11/20/17 05:40 Urine Nitrite NEGATIVE (NEGATIVE) 11/20/17 05:40 Urine Bilirubin NEGATIVE (NEGATIVE) 11/20/17 05:40 Urine Urobilinogen 0.2 (NORMAL) E.U./dL (NORMAL) 11/20/17 05:40 Ur Leukocyte Esterase NEGATIVE (NEGATIVE) 11/20/17 05:40 Urine RBC 6-10 /HPF (0-5) H 11/20/17 05:40 Urine WBC 0-3 /HPF (0-3) 11/20/17 05:40 Ur Squamous Epith Cells FEW Squamous (<= Few) 11/20/17 05:40 Urine Bacteria Few /HPF (None Seen) 11/20/17 05:40 Ur Microscopic Review INDICATED 11/20/17 05:40 Urine Culture Comments NOT INDICATED 11/20/17 05:40 Urine Opiates Screen NEGATIVE (NEGATIVE) 11/20/17 05:40 Ur Oxycodone Screen NEGATIVE (NEGATIVE) 11/20/17 05:40 Urine Methadone Screen NEGATIVE (NEGATIVE) 11/20/17 05:40 Ur Propoxyphene Screen NEGATIVE (NEGATIVE) 11/20/17 05:40 Ur Barbiturates Screen NEGATIVE (NEGATIVE) 11/20/17 05:40 Ur Tricyclics Screen NEGATIVE (NEGATIVE) 11/20/17 05:40 Ur Phencyclidine Scrn NEGATIVE (NEGATIVE) 11/20/17 05:40 Ur Amphetamine Screen NEGATIVE (NEGATIVE) 11/20/17 05:40 U Methamphetamines Scrn NEGATIVE (NEGATIVE) 11/20/17 05:40 U Benzodiazepines Scrn NEGATIVE (NEGATIVE) 11/20/17 05:40 Urine Cocaine Screen NEGATIVE (NEGATIVE) 11/20/17 05:40 U Cannabinoids Screen POSITIVE (NEGATIVE) H 11/20/17 05:40 Ethyl Alcohol 177.9 mg/dL 11/20/17 05:38 ABX Reporting Has patient been on IV antibiotics over the past 48 hours?: No Current Medications - Current Medications Current Medications: Active Medications Generic Name Dose Route Start Last Admin Trade Name Freq PRN Reason Stop Dose Admin Calcium Citrate 500 mg 11/21/17 09:00 11/21/17 15:10 PO 11/21/17 21:01 500 mg QID DANIEL Administration Protocol Potassium Chloride/Dextrose/Sod Cl 1,000 mls @ 100 mls/hr 11/20/17 13:00 11/21/17 10:42 IV 100 mls/hr .Q10H DANIEL Administration Famotidine 50 mls @ 100 mls/hr 11/20/17 13:00 11/21/17 09:40 Pepcid 20 Mg/50 Ml IV Infused DAILY DANIEL Infusion Ondansetron HCl 4 mg 11/21/17 12:24 Zofran Inj IVP Q4HR PRN Nausea / Vomiting Polyethylene Glycol 17 gm 11/21/17 09:00 11/21/17 10:08 Miralax PO Not Given DAILY DANIEL Prochlorperazine Edisylate 10 mg 11/20/17 12:54 Compazine Inj IVP Q6HR PRN Nausea / Vomiting Sodium Chloride 10 ml 11/20/17 17:00 11/21/17 10:09 Normal Saline Flush 0.9% IVP Not Given 0100,0900,1700 DANIEL Sodium Chloride 10 ml 11/20/17 12:54 11/20/17 14:00 Normal Saline Flush 0.9% IVP 10 ml PRN PRN Administration NEEDED PER PROVIDER ORDERS Esomeprazole Magnesium [Nexium 24Hr] 20 mg PO DAILY 11/21/17 Multivitamin [Theragran] 1 each PO DAILY 11/21/17
[2017-11-22 05:17] LABS: HGB - HEMOGLOBIN 12.4 g/dL (14.0-18.0); MEAN CORPUSCULAR HEMOGLOBIN 32.3 pg (27.0-31.0); MEAN CORPUSCULAR VOLUME 92.3 fL (80.0-94.0); MEAN PLATELET VOLUME 7.8 fL (7.4-11.4); RED BLOOD COUNT 3.85 10^6/uL (4.70-6.10); RED CELL DISTRIBUTION WIDTH 12.6 % (12.0-15.0); WHITE BLOOD COUNT 7.2 x10^3/uL (4.8-10.8)
[2017-11-22 05:38] LABS: ALBUMIN 3.3 g/dL (3.2-5.5); ALBUMIN/GLOBULIN RATIO 1.3 (1.0-2.2); ALKALINE PHOSPHATASE 53 IU/L (42-121); ALT ALANINE AMINOTRANSFERASE 1148 IU/L (10-60); AST ASPARTATE AMINOTRANSFERASE 693 IU/L (10-42); BILIRUBIN,TOTAL 0.9 mg/dL (0.2-1.0); BUN - BLOOD UREA NITROGEN 10 mg/dL (6-20); CALCIUM 8.7 mg/dL (8.5-10.3); CARBON DIOXIDE - CO2 28 mmol/L (21-32); CHLORIDE 103 mmol/L (101-111); GFR - MDRD 90 (>89); GLUCOSE 136 mg/dL (70-100); MAGNESIUM 1.7 mg/dL (1.7-2.8); PHOSPHORUS 2.5 mg/dL (2.5-4.6); SODIUM 137 mmol/L (135-145); TOTAL PROTEIN 5.8 g/dL (6.7-8.2)
[2017-11-22 05:45] LABS: CK- CREATINE KINASE 1948 IU/L (22-269)
[2017-11-22] MEDS: SODIUM CHLORIDE FLUSH 0.9% 10 ML SYRINGE IVP SCH (05:55)
[2017-11-22] MEDS: D5NS W/20 MEQ KCL 1,000 ML IV SCH (06:35)
[2017-11-22] MEDS: FAMOTIDINE 20 MG/50 ML 50 ML IV SCH (08:00)
[2017-11-22 08:04] VITALS: BP 160/116
[2017-11-22] MEDS: POLYETHYLENE GLYCOL 3350 17 GM PACKET PO SCH (08:49)
--- NOTE | 2017-11-22 10:44 | Discharge Plan ---
Discharge Plan Disposition: 01 Home, Self Care Condition: Fair Diet: Regular Activity Restrictions: No Restrictions Shower Restrictions: No Driving Restrictions: No Weight Bearing: Full Weight Instruction Topics: Addiction Marijuana Signs Additional Instructions or Follow Up instructions: Please follow-up with your primary care physician to have your labs rechecked to ensure all your vital organ function has returned to normal. Please refrain from drinking excessive amounts of alcohol and taking narcotic medications that have not been prescribed to you. No Smoking: If you smoke, Please STOP! Call for help. Follow-up with: Gladys Faria ARNP [Provider Admit Priv/Credential] -
--- NOTE | 2017-11-22 10:48 | DISCHARGE SUMMARY ---
Discharge Summary Admit Date: 11/20/17 Discharge Date: 11/22/17 Discharging Provider: Carlton Contreras Primary Care Provider: Gladys HARRISON Code Status: Attempt Resuscitation Condition at Discharge: Fair Discharge Disposition: 01 Home, Self Care - DIAGNOSES Admission Diagnoses: 1. Drug overdose 2. Alcohol intoxication 3. Elevated white blood cell count 4. Elevated lactic acid level Discharge Diagnoses with Status of Each Condition: 1. Opioid overdose: Resolved 2. Alcohol intoxication: Resolved 3. Rhabdomyolysis: Improved 4. Acute kidney injury: Resolved 5. Elevated LFTs: Guarded 6. Lactic acidosis: Resolved 7. Narcotic induced respiratory depression: Resolved - HPI History of Present Illness: Patient is a 27-year-old gentleman with a past medical history significant for obesity. He takes no routine prescription medications. The patient went out with 2 friends and was drinking alcohol. He states he normally consumes either beer or half 1/5 of vodka when he drinks alcohol, but this time he drank an entire gallon of his friends moonshine. Following that, he thinks that he tried to use oxycodone by crushing it and snorting it. He remembers blacking out from the alcohol use and does not remember coming home or trying to snort drugs in his home. The patient's father heard gurgling and went to check on his son and found him on the floor of the bathroom nearly comatose. He called 911. The patient's respiratory rate was 3-5 breaths per minute and he was decorticate posturing. In the ambulance, the patient was given Narcan with some awakening and then this was repeated in the emergency department, and he was put on the Narcan drip for further neurologic improvement, and he woke up and was communicating. He was admitted to the ICU because of abnormal blood tests and drug overdose. The patient was found to have a lactic acid of 8.0 on presentation, creatinine of 2.0 and a leukocytosis of 20.2. The patient was also found to have rhabdomyolysis with a total CK of 4035. - HOSPITAL COURSE Hospital Course: (1) Opioid overdose Qualifiers: Encounter type: subsequent encounter Injury intent: accidental or unintentional Qualified Code(s): T40.2X1D - Poisoning by other opioids, accidental (unintentional), subsequent encounter Assessment/Plan: Patient presented to the emergency department with what appears to have been a opioid overdose. The patient was intoxicated with alcohol and blacked out. He is presumed to have taken what he thought was oxycodone but may have been fentanyl which he received off the street. Due to this the patient had severe respiratory depression and presented with a severe lactic acidosis of 8.0. The patient was placed on a Narcan drip and given IV fluids also initially placed on BiPAP and on oxygen. The patient seems to be improving significantly and is back to his normal mentation. The patient states he did not try to intent ionally overdose or kill himself. Resolved (2) Alcohol intoxication Qualifiers: Complication of substance-induced condition: with unspecified complication Qualified Code(s): F10.929 - Alcohol use, unspecified with intoxication, u nspecified Assessment/Plan: The patient drank excessive amount of alcohol prior to taking opioids. The patient came into the hospital with a blood alcohol level of 177.9. The patient appears not to be sober. The patient was counseled on the need to cut down on alcohol consumption. The patient appeared to understand this. Resolved (3) Rhabdomyolysis Qualifiers: Rhabdomyolysis type: non-traumatic Qualified Code(s): M62.82 - Rhabdomyolysis Assessment/Plan: Due to the drug overdose the patient developed rhabdomyolysis with CK elevated to 4034. The patient has been given IV fluids and CK improved down to 1948 prior to discharge. Patients renal function also improved and patient was stable for discharge. Patient was not having any muscle weakness or muscle pain at discharge. Resolving. (4) DARY (acute kidney injury) Assessment/Plan: The patient did have acute kidney injury on presentation with a creatinine of 2.0. The patient's likely cause of acute kidney injury was dehydration from alcohol consumption as well as end-organ damage from opiate overdose. The patient's creatinine is improved with IV fluids and treatment of his opiate overdose. The patient's creatinine is down to 1.0 at time of discharge. Resolved (5) Elevated LFTs Assessment/Plan: On presentation to the emergency department the patient did not have LFTs checked. However on the day of discharge patient's LFTs were checked and found to have be elevated with an AST of 693 and an ALT of 1148. Given the patient's presentation these were likely due to a shock liver from the patient's comatose state and overall hypoxic condition due to the drug overdose. I have requested that the patient follow-up with his primary care physician to get a CMP checked in the next week to ensure that these levels do come back to the normal range. The patient otherwise was having no symptoms of abdominal pain, fevers or any other symptoms to suggest that this was anything else. (6) Lactic acidosis Assessment/Plan: Patient presented with a severe lactic acidosis of 8.0 secondary to opiate overdose and likely hypotension and hypoperfusion of and organs. The patient did improve with Narcan. Patient's lactic acidosis back to normal. Resolved. (7) Narcotic-induced respiratory depression Assessment/Plan: Results with Narcan drip and BiPAP. Patient now on room air and has normal respirations. Resolved - ALLERGIES Allergies/Adverse Reactions: Allergies Allergy/AdvReac Type Severity Reaction Status Date / Time No Known Drug Allergies Allergy Verified 11/20/17 06:02 - MEDICATIONS Home Medications: Ambulatory Orders Medication Instructions Recorded Confirmed Esomeprazole Magnesium [Nexium 20 mg PO DAILY 11/21/17 11/21/17 24Hr] Multivitamin [Theragran] 1 each PO DAILY 11/21/17 11/21/17 - PHYSICAL EXAM AT DISCHARGE General Appearance: positive: No acute distress, Alert Eyes Bilateral: positive: Normal inspection, PERRL, EOMI, No lid inflammation, C onjunctivae nml, No scleral icterus ENT: positive: ENT inspection nml, Pharynx nml, No signs of dehydration. negative: Purulent nasal drainage, Pharyngeal erythema, Oral lesions Neck: positive: Nml inspection, Thyroid nml, No JVD, Trachea midline. negative: Thyromegaly, Lymphadenopathy (R), Lymphadenopathy (L), Stiff neck, Carotid bruit, Tracheal deviation Respiratory: positive: Chest non-tender, No respiratory distress, Breath sounds nml. negative: Wheezes, Rales, Rhonchi Cardiovascular: positive: Regular rate & rhythm, No murmur, No gallop Peripheral Pulses: positive: 2+ Abdomen: positive: Non-tender, No organomegaly, Nml bowel sounds, No distention. negative: Guarding, Rebound, Hepatomegaly Back: positive: Nml inspection. negative: CVA tenderness (R), CVA tenderness (L) Skin: positive: Color nml, No rash, Warm. negative: Cyanosis, Diaphoresis, Pallor Extremities: positive: Non-tender, Full ROM, Nml appearance, No pedal edema Neurologic/Psychiatric: positive: Oriented x3, CN's nml (2-12), Motor nml, Sensation nml, Mood/affect nml - LABS Result Diagrams: 11/22/17 04:50 11/22/17 04:50 Other Lab Results: Laboratory Results WBC 7.2 x10^3/uL (4.8-10.8) 11/22/17 04:50 RBC 3.85 10^6/uL (4.70-6.10) L 11/22/17 04:50 Hgb 12.4 g/dL (14.0-18.0) L 11/22/17 04:50 Hct 35.6 % (42.0-52.0) L 11/22/17 04:50 MCV 92.3 fL (80.0-94.0) 11/22/17 04:50 MCH 32.3 pg (27.0-31.0) H 11/22/17 04:50 MCHC 35.0 g/dL (32.0-36.0) 11/22/17 04:50 RDW 12.6 % (12.0-15.0) 11/22/17 04:50 Plt Count 173 10^3/uL (130-450) 11/22/17 04:50 MPV 7.8 fL (7.4-11.4) 11/22/17 04:50 Neut # (Auto) 7.3 10^3/uL (1.5-6.6) H 11/21/17 04:30 Lymph # (Auto) 1.9 10^3/uL (1.5-3.5) 11/21/17 04:30 [place] # (Auto) 0.5 10^3/uL (0.0-1.0) 11/21/17 04:30 Eos # (Auto) 0.1 10^3/uL (0.0-0.7) 11/21/17 04:30 Baso # (Auto) 0.0 10^3/uL (0.0-0.1) 11/21/17 04:30 Absolute Nucleated RBC 0.01 x10^3/uL 11/21/17 04:30 Total Counted 100 11/20/17 05:38 Band Neuts % (Manual) 9 % (0-10) 11/20/17 05:38 Abnorm Lymph % (Manual) 0 % 11/20/17 05:38 Metamyelocytes % 2 % (-0) H 11/20/17 05:38 Myelocytes % 2 % (-0) H 11/20/17 05:38 Nucleated RBC % 0.1 /100WBC 11/21/17 04:30 Neutrophils # (Manual) 15.6 10^3/uL (1.5-6.6) H 11/20/17 05:38 Lymphocytes # (Manual) 2.8 10^3/uL (1.5-3.5) 11/20/17 05:38 Monocytes # (Manual) 1.0 10^3/uL (0.0-1.0) 11/20/17 05:38 Eosinophils # (Manual) 0.0 10^3/uL (0-0.7) 11/20/17 05:38 Basophils # (Manual) 0.0 10^3/uL (0-0.1) 11/20/17 05:38 Differential Comment MANUAL DIFFERENTIAL 11/20/17 05:38 Platelet Estimate NORMAL (130-450,000) (NORMAL) 11/20/17 05:38 RBC Morph Micro Appear NORMAL APPEARANCE (NORMAL) 11/20/17 05:38 VBG pH 7.330 (7.31-7.41) 11/21/17 06:20 Ionized Calcium 1.07 mmol/L (1.15-1.33) L 11/21/17 06:20 Sodium 137 mmol/L (135-145) 11/22/17 04:50 Potassium 4.5 mmol/L (3.5-5.0) 11/22/17 04:50 Chloride 103 mmol/L (101-111) 11/22/17 04:50 Carbon Dioxide 28 mmol/L (21-32) 11/22/17 04:50 Anion Gap 6.0 (6-13) 11/22/17 04:50 BUN 10 mg/dL (6-20) 11/22/17 04:50 Creatinine 1.0 mg/dL (0.6-1.2) 11/22/17 04:50 Estimated GFR (MDRD) 90 (>89) 11/22/17 04:50 Glucose 136 mg/dL (70-100) H 11/22/17 04:50 Lactic Acid 1.5 mmol/L (0.5-2.2) 11/20/17 15:03 Calcium 8.7 mg/dL (8.5-10.3) 11/22/17 04:50 Ionized Calcium NO 11/22/17 04:50 Phosphorus 2.5 mg/dL (2.5-4.6) 11/22/17 04:50 Magnesium 1.7 mg/dL (1.7-2.8) 11/22/17 04:50 Total Bilirubin 0.9 mg/dL (0.2-1.0) 11/22/17 04:50 AST 693 IU/L (10-42) H 11/22/17 04:50 ALT 1148 IU/L (10-60) H 11/22/17 04:50 Alkaline Phosphatase 53 IU/L (42-121) 11/22/17 04:50 Total Creatine Kinase 1948 IU/L (22-269) H* 11/22/17 04:50 CK-MB (CK-2) 10.5 ng/mL (0.6-6.3) H 11/20/17 05:38 Troponin I 0.05 ng/mL (<0.49) 11/20/17 05:38 Total Protein 5.8 g/dL (6.7-8.2) L 11/22/17 04:50 Albumin 3.3 g/dL (3.2-5.5) 11/22/17 04:50 Globulin 2.5 g/dL (2.1-4.2) 11/22/17 04:50 Albumin/Globulin Ratio 1.3 (1.0-2.2) 11/22/17 04:50 Urine Color YELLOW 11/20/17 05:40 Urine Clarity CLEAR (CLEAR) 11/20/17 05:40 Urine pH 6.0 PH (5.0-7.5) 11/20/17 05:40 Ur Specific [place] 1.020 (1.002-1.030) 11/20/17 05:40 Urine Protein 100 mg/dL (NEGATIVE) H 11/20/17 05:40 Urine Glucose (UA) 100 mg/dL (NEGATIVE) H 11/20/17 05:40 Urine Ketones NEGATIVE mg/dL (NEGATIVE) 11/20/17 05:40 Urine Occult Blood MODERATE (NEGATIVE) H 11/20/17 05:40 Urine Nitrite NEGATIVE (NEGATIVE) 11/20/17 05:40 Urine Bilirubin NEGATIVE (NEGATIVE) 11/20/17 05:40 Urine Urobilinogen 0.2 (NORMAL) E.U./dL (NORMAL) 11/20/17 05:40 Ur Leukocyte Esterase NEGATIVE (NEGATIVE) 11/20/17 05:40 Urine RBC 6-10 /HPF (0-5) H 11/20/17 05:40 Urine WBC 0-3 /HPF (0-3) 11/20/17 05:40 Ur Squamous Epith Cells FEW Squamous (<= Few) 11/20/17 05:40 Urine Bacteria Few /HPF (None Seen) 11/20/17 05:40 Ur Microscopic Review INDICATED 11/20/17 05:40 Urine Culture Comments NOT INDICATED 11/20/17 05:40 Urine Opiates Screen NEGATIVE (NEGATIVE) 11/20/17 05:40 Ur Oxycodone Screen NEGATIVE (NEGATIVE) 11/20/17 05:40 Urine Methadone Screen NEGATIVE (NEGATIVE) 11/20/17 05:40 Ur Propoxyphene Screen NEGATIVE (NEGATIVE) 11/20/17 05:40 Ur Barbiturates Screen NEGATIVE (NEGATIVE) 11/20/17 05:40 Ur Tricyclics Screen NEGATIVE (NEGATIVE) 11/20/17 05:40 Ur Phencyclidine Scrn NEGATIVE (NEGATIVE) 11/20/17 05:40 Ur Amphetamine Screen NEGATIVE (NEGATIVE) 11/20/17 05:40 U Methamphetamines Scrn NEGATIVE (NEGATIVE) 11/20/17 05:40 U Benzodiazepines Scrn NEGATIVE (NEGATIVE) 11/20/17 05:40 Urine Cocaine Screen NEGATIVE (NEGATIVE) 11/20/17 05:40 U Cannabinoids Screen POSITIVE (NEGATIVE) H 11/20/17 05:40 Ethyl Alcohol 177.9 mg/dL 11/20/17 05:38 - DIAGNOSTIC IMAGING Diagnostic Imaging Results: Final report reviewed Diagnostic Imaging Results Comments: CT head Impression: Normal head CT Chest x-ray Impression: Body habitus reduces sensitivity and specificity. Possible hazy left lung opacity may be due to artifact, asymmetric edema and/or atelectasis. No consolidation. - FOLLOW UP Follow Up: Patient was admitted to the hospital after a opioid overdose which caused severe respiratory depression and end organ damage. Patient had severely elevated lactic acid of 8.0, acute kidney injury with a creatinine of 2.0 and rhabdomyolysis with CK of 4035. The patient recovered with a Narcan drip and initial respiratory support. The patient does not appear to have any irreversible damage and recovered quickly with hospitalization. The patient was also found to have elevated LFTs these were not checked initially when patient presented but are likely also due to his respiratory depression and shock liver. The patient will follow up with his primary care physician to recheck his CMP to ensure that LFTs do continue to improve. - TIME SPENT Time Spent in Discharge (Minutes): 40
== END 2017-11-22 11:00 | disposition home or self-care (01) | DRG 917 ==
LOC: EDUNIT# → ED 05:32 → ICU 09:23
PROVIDERS: ADMIT Internal Medicine; ATTEND Internal Medicine
DX: T40.2X1A Poisoning by other opioids, accidental (unintentional), initial encounter (principal); K72.01 Acute and subacute hepatic failure with coma; M62.82 Rhabdomyolysis; N17.9 Acute kidney failure, unspecified; E87.2 Acidosis; Z68.41 Body mass index [BMI] 40.0-44.9, adult; G93.89 Other specified disorders of brain; E66.9 Obesity, unspecified; F10.929 Alcohol use, unspecified with intoxication, unspecified; E86.0 Dehydration; I95.2 Hypotension due to drugs; Y90.6 Blood alcohol level of 120-199 mg/100 ml; Y92.002 Bathroom of unspecified non-institutional (private) residence as the place of occurrence of the external cause; Z87.891 Personal history of nicotine dependence; Z63.79 Other stressful life events affecting family and household
CPT/HCPCS: 36415; 51702; 70450; 71046; 80048; 80053; 80306; 80320; 81001; 81003; 82040; 82330; 82550; 82553; 83605; 83735; 84100; 84484; 85025; 85027; 87086; 87150; 93005; 96361; 96374; 96376; 99284; 99285; 99406

== ENCOUNTER 2017-12-03 14:32 | Outpatient (CLI) | payer MEDICAID ==
[2017-12-03 18:53] LABS: ALBUMIN 4.6 g/dL (3.2-5.5); ALBUMIN/GLOBULIN RATIO 1.4 (1.0-2.2); BILIRUBIN,TOTAL 0.7 mg/dL (0.2-1.0); CALCIUM 9.5 mg/dL (8.5-10.3); CREATININE 0.8 mg/dL (0.6-1.2)
== END 2017-12-03 14:33 | disposition home or self-care (01) ==
LOC: LAB.F 14:32
PROVIDERS: ATTEND Nurse Practitioner Family
DX: M62.82 Rhabdomyolysis (principal); R74.0 Nonspecific elevation of levels of transaminase and lactic acid dehydrogenase [LDH]
CPT/HCPCS: 36415; 80053; 82550

== ENCOUNTER 2018-11-11 08:57 | Emergency (ER) | payer MEDICAID ==
[2018-11-11 09:07] VITALS: BP 150/100
--- NOTE | 2018-11-11 09:33 | XRAY Report ---
Reason: L ankle pain, swelling Procedure Date: 11/11/2018 Accession Number: [id number] / [id number] Procedure: XR - Ankle 3 View LT CPT Code: FULL RESULT: EXAM: LEFT ANKLE RADIOGRAPHY EXAM DATE: 11/11/2018 09:24 AM. CLINICAL HISTORY: L ankle pain, swelling. COMPARISON: None. TECHNIQUE: 3 views. FINDINGS: Bones: Normal. No fractures or bone lesions. Joints: Normal. No effusion. No subluxations. The ankle mortise is normally aligned. Soft Tissues: Normal. No soft tissue swelling. IMPRESSION: Normal ankle radiography. [facility]
--- NOTE | 2018-11-11 10:22 | ED Physician Documentation ---
PD HPI LOWER EXT INJURY - Stated complaint Stated Complaint: L ANKLE INJ - Chief complaint Chief Complaint: Ext Problem - History obtained from History obtained from: Patient - History of Present Illness PD HPI LOW EXT INJURY LOCATION: Left, Ankle Type of injury: Twist Where injury occurred: Work Timing - onset: How many weeks ago (2) Timing - duration: Weeks (2) Timing - details: Abrupt onset, Still present Improved by: Rest, Immobilization Worsened by: Moving, Palpating Associated symptoms: Swelling. No: Weakness, Numbness Contributing factors: No: Anticoagulated Similar symptoms before: Has not had sx before Recently seen: Not recently seen - Additional information Additional information: 28-year-old male rolled his left ankle on the job site about 2 weeks ago. 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 He is having some trouble walking around and he has a lot of swelling to the lateral aspect of the ankle. Review of Systems Constitutional: denies: Fever Eyes: denies: Decreased vision Ears: denies: Ear pain Nose: denies: Congestion Throat: denies: Sore throat Respiratory: denies: Cough GI: denies: Vomiting PD PAST MEDICAL HISTORY - Past Medical History Cardiovascular: None Respiratory: None Neuro: None Endocrine/Autoimmune: None GI: None : None HEENT: None Psych: None Musculoskeletal: None Derm: None - Past Surgical History Past Surgical History: No - Present Medications Home Medications: Ambulatory Orders Medication Instructions Recorded Confirmed Esomeprazole Magnesium [Nexium 20 mg PO DAILY 11/21/17 11/21/17 24Hr] Multivitamin [Theragran] 1 each PO DAILY 11/21/17 11/21/17 - Allergies Allergies/Adverse Reactions: Allergies Allergy/AdvReac Type Severity Reaction Status Date / Time No Known Drug Allergies Allergy Verified 11/20/17 06:02 - Social History Does the pt smoke?: Yes Smoking Status: Current every day smoker Does the pt drink ETOH?: Yes Does the pt have substance abuse?: No - Immunizations Immunizations are current?: No Immunizations: TDAP >10years/unknown - POLST Patient has POLST: No PD ED PE NORMAL - Vitals Vital signs reviewed: Yes (hypertensive ) - General General: Alert and oriented X 3, No acute distress, Well developed/nourished - HEENT HEENT: Atraumatic - Respiratory Respiratory: No respiratory distress - Derm Derm: Normal color, Warm and dry, No rash - Extremities Extremities: No deformity, Other (There is swelling and point tenderness over the talofibular ligament on the left side. There is no tenderness to the prox imal fifth and he is able to flex and extend the ankle without much difficulty. 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, No motor deficit, No sensory deficit, Normal speech Eye Opening: Spontaneous Motor: Obeys Commands Verbal: Oriented GCS Score: 15 - Psych Psych: Normal mood, Normal affect Results - Vitals Vitals: Vital Signs - 24 hr 11/11/18 09:05 Temperature 36.4 C L Heart Rate 72 Respiratory 18 Rate Blood Pressure 150/100 H O2 Saturation 99 Oxygen O2 Source Room air - Rads (name of study) ankle Radiology: Prelim report reviewed (Impression: Normal ankle radiography.), EMP read indepedently, See rad report PD MEDICAL DECISION MAKING - ED course Complexity details: considered differential, d/w patient ED course: 28-year-old male with an ankle sprain is placed into an ankle stirrup note for work for 3 days. Departure - Departure Disposition: 01 Home, Self Care Clinical Impression: Ankle sprain Qualifiers: Encounter type: initial encounter Involved ligament of ankle: calcaneofibular ligament Laterality: left Qualified Code(s): S93.412A - Sprain of calcaneofibular ligament of left ankle, initial encounter Condition: Stable Instructions: ED Sprain Ankle W X Ray Follow-Up: Eleanor Camp ARNP [Primary Care Provider] - Forms: Activity restrictions
== END 2018-11-11 10:59 | disposition home or self-care (01) ==
LOC: ED 08:57
DX: S93.412A Sprain of calcaneofibular ligament of left ankle, initial encounter (principal); X50.1XXA Overexertion from prolonged static or awkward postures, initial encounter; Y99.0 Civilian activity done for income or pay; F17.200 Nicotine dependence, unspecified, uncomplicated
CPT/HCPCS: 99282; 99283

== ENCOUNTER 2019-04-28 08:12 | Emergency (ER) | payer OTHER, MEDICAID ==
--- NOTE | 2019-04-28 08:58 | ED Physician Documentation ---
PD HPI UPPER EXT INJURY - Stated complaint Stated Complaint: L HAND LAC - Chief complaint Chief Complaint: Laceration - History obtained from History obtained from: Patient - History of Present Illness Location: Left, Hand Type of injury: Laceration (cut with exacto knife at work, with lac to left hand web tissue between thumb and index. Bled well. No FB nor weakness/numbness.) Where injury occurred: Work Timing - onset: Today Timing - details: Abrupt onset, Still present Worsened by: Palpating. No: Moving Associated symptoms: No: Weakness, Numbness Similar symptoms before: Has not had sx before Review of Systems Skin: reports: Laceration (s) Neurologic: denies: Focal weakness, Numbness PD PAST MEDICAL HISTORY - Past Medical History Cardiovascular: None Respiratory: None Neuro: None Endocrine/Autoimmune: None GI: None : None HEENT: None Psych: None Musculoskeletal: None Derm: None - Past Surgical History Past Surgical History: No - Present Medications Home Medications: Ambulatory Orders Medication Instructions Recorded Confirmed Esomeprazole Magnesium [Nexium 20 mg PO DAILY 11/21/17 11/21/17 24Hr] Multivitamin [Theragran] 1 each PO DAILY 11/21/17 11/21/17 - Allergies Allergies/Adverse Reactions: Allergies Allergy/AdvReac Type Severity Reaction Status Date / Time No Known Drug Allergies Allergy Verified 04/28/19 08:19 - Social History Does the pt smoke?: Yes Smoking Status: Current every day smoker Does the pt drink ETOH?: Yes Does the pt have substance abuse?: No - Immunizations Immunizations are current?: No Immunizations: TDAP >10years/unknown - POLST Patient has POLST: No PD ED PE NORMAL - Vitals Vital signs reviewed: Yes - General General: Alert and oriented X 3, No acute distress, Well developed/nourished - Derm Derm: Normal color, Warm and dry - Extremities Extremities: Other (left hand web tissue dorsal aspect between thumb and index fingers with 3 cm lac to fatty tissue. No bleeding nor FB. Thumb and index fingers with normal sensation and movement against resistance. Normal color and cap refill at tips. ) - Neuro Neuro: No motor deficit, No sensory deficit Results - Vitals Vitals: Vital Signs - 24 hr 04/28/19 04/28/19 08:19 10:10 Temperature 36.5 C Heart Rate 65 71 Respiratory 16 18 Rate Blood Pressure 145/90 H 179/81 H O2 Saturation 98 98 Oxygen O2 Source Room air Procedures - Laceration (location) left hand Length in cm: 3 Wound type: Linear, Into subcut fat, Clean. No: Into muscle Neurovascular status: Sensory intact, Motor intact, Vascular intact Tendon involvement: Tendon intact Anesthesia: Lidocaine 1% with epi Skin layer closure: Nylon, Running, Size #-0 - enter number (4), Sutures - enter # (13) Other: Patient tolerated well, No complications, Neurovascular intact, Dressing applied, Tetanus UTD Complexity: Simple Departure - Departure Disposition: 01 Home, Self Care Clinical Impression: Hand laceration Qualifiers: Encounter type: initial encounter Foreign body presence: without foreign body Laterality: left Qualified Code(s): S61.412A - Laceration without foreign body of left hand, initial encounter Condition: Stable Record reviewed to determine appropriate education?: Yes Instructions: ED Laceration Hand Follow-Up: Eleanor Camp ARNP [Primary Care Provider] - Comments: It is okay to wash and shower. Clean off the wound twice a day with soap and water, or peroxide and water. Apply some antibiotic ointment to it to keep it moist. Also to watch for signs of infection such as purulence, redness or increasing pain. Return to your primary care or the ER at the specified time for suture removal. Suture removal 10 to 12 days. Tylenol or ibuprofen as needed for pains. Light use of the hand for a 2-3 days for it to initially seal up. Discharge Date/Time: 04/28/19 10:10
[2019-04-28] MEDS ORDERED: IBUPROFEN 600 MG TABLET PO STA (09:13)
[2019-04-28] MEDS ORDERED: LIDOCAINE MPF 1%-EPI 1:200000 10 ML VIAL SUBQ STA (09:13)
[2019-04-28] MEDS ORDERED: LIDOCAINE 1%-EPI 1:100000 20 ML MDV SUBQ STA (09:31)
[2019-04-28 10:12] VITALS: BP 179/81
== END 2019-04-28 10:10 | disposition home or self-care (01) ==
LOC: ED 08:12
DX: S61.412A Laceration without foreign body of left hand, initial encounter (principal); W26.0XXA Contact with knife, initial encounter; Y92.69 Other specified industrial and construction area as the place of occurrence of the external cause; Y99.0 Civilian activity done for income or pay; F17.200 Nicotine dependence, unspecified, uncomplicated
CPT/HCPCS: 12002; 99282; A9270

== ENCOUNTER 2019-05-17 11:30 | Emergency (ER) | payer MEDICAID ==
[2019-05-17 11:36] VITALS: BP 150/83
--- NOTE | 2019-05-17 12:35 | XRAY Report ---
Reason: Trauma Procedure Date: 05/17/2019 Accession Number: [id number] / [id number] Procedure: XR - Ankle 3 View LT CPT Code: Final Report FULL RESULT: EXAMS: LEFT FOOT AND ANKLE RADIOGRAPHY EXAM DATE: 05/17/2019 12:01 PM. CLINICAL HISTORY: Trauma, left foot and ankle pain. COMPARISON: ANKLE 3 VIEW LT 11/11/2018 9:08 AM. TECHNIQUE: 3 views each foot and ankle. FINDINGS: Bones: Normal. No fractures or bone lesions in the foot or ankle. Joints: Normal. No effusions. No subluxations in the foot or ankle. The ankle mortise is normally aligned. Soft Tissues: Normal. No soft tissue swelling. IMPRESSION: Negative left foot and ankle radiography. [facility]
--- NOTE | 2019-05-17 12:35 | XRAY Report ---
Reason: Trauma Procedure Date: 05/17/2019 Accession Number: [id number] / [id number] Procedure: XR - Foot 3 View LT CPT Code: Final Report FULL RESULT: EXAMS: LEFT FOOT AND ANKLE RADIOGRAPHY EXAM DATE: 05/17/2019 12:01 PM. CLINICAL HISTORY: Trauma, left foot and ankle pain. COMPARISON: ANKLE 3 VIEW LT 11/11/2018 9:08 AM. TECHNIQUE: 3 views each foot and ankle. FINDINGS: Bones: Normal. No fractures or bone lesions in the foot or ankle. Joints: Normal. No effusions. No subluxations in the foot or ankle. The ankle mortise is normally aligned. Soft Tissues: Normal. No soft tissue swelling. IMPRESSION: Negative left foot and ankle radiography. [facility]
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
== END 2019-05-17 12:53 | disposition home or self-care (01) ==
LOC: ED 11:30
DX: S93.402A Sprain of unspecified ligament of left ankle, initial encounter (principal); S93.602A Unspecified sprain of left foot, initial encounter; X58.XXXA Exposure to other specified factors, initial encounter; Y93.I9 Activity, other involving external motion; F17.210 Nicotine dependence, cigarettes, uncomplicated
CPT/HCPCS: 99282; 99283

== ENCOUNTER 2019-07-28 12:02 | Outpatient (CLI) | payer MEDICAID | END 2019-07-28 23:59 | disposition home or self-care (01) | LOC: COV 12:02 | PROVIDERS: ATTEND Family Medicine | DX: R05 Cough (principal); M79.10 Myalgia, unspecified site; Z20.828 Contact with and (suspected) exposure to other viral communicable diseases | CPT/HCPCS: 81599 ==

== ENCOUNTER 2019-10-05 12:29 | Emergency (ER) | payer MEDICAID ==
[2019-10-05 12:35] VITALS: BP 142/84
[2019-10-05] MEDS ORDERED: ACETAMINOPHEN 325 MG TABLET PO STA (12:44)
[2019-10-05] MEDS ORDERED: IBUPROFEN 800 MG TABLET PO STA (12:44)
--- NOTE | 2019-10-05 12:46 | ED Physician Documentation ---
PD HPI LOWER EXT INJURY - Stated complaint Stated Complaint: RT ANKLE PX - Chief complaint Chief Complaint: Ext Problem - History obtained from History obtained from: Patient - History of Present Illness PD HPI LOW EXT INJURY LOCATION: Right - Additional information Additional information: Without specific injury he is developed pain over the ATFL of the right ankle and the medial right ankle over the last couple of months. Now more severe. No fevers. Review of Systems Constitutional: reports: Reviewed and negative Eyes: reports: Reviewed and negative Ears: reports: Reviewed and negative PD PAST MEDICAL HISTORY - Past Medical History Cardiovascular: None Respiratory: None Neuro: None Endocrine/Autoimmune: None GI: None : None HEENT: None Psych: None Musculoskeletal: None Derm: None - Past Surgical History Past Surgical History: No - Present Medications Home Medications: Ambulatory Orders Medication Instructions Recorded Confirmed Esomeprazole Magnesium [Nexium 20 mg PO DAILY 11/21/17 10/05/19 24Hr] - Allergies Allergies/Adverse Reactions: Allergies Allergy/AdvReac Type Severity Reaction Status Date / Time No Known Drug Allergies Allergy Verified 05/17/19 11:33 - Social History Does the pt smoke?: Yes Smoking Status: Current every day smoker Does the pt drink ETOH?: Yes Does the pt have substance abuse?: No - Immunizations Immunizations are current?: No Immunizations: TDAP >10years/unknown - POLST Patient has POLST: No PD ED PE NORMAL - Vitals Vital signs reviewed: Yes - General General: Alert and oriented X 3, No acute distress - Extremities Extremities: Other (Mild tenderness over the lateral malleolus, ATFL and medial ankle. No tenderness over the Achilles. Range of motion is normal. Achilles function is normal.) - Neuro Neuro: Alert and oriented X 3, Normal speech Results - Vitals Vitals: Vital Signs - 24 hr 10/05/19 12:33 Temperature 37.1 C Heart Rate 91 Respiratory 16 Rate Blood Pressure 142/84 H O2 Saturation 98 Oxygen O2 Source Room air - Rads (name of study) 3v R ankle Radiology: EMP read contemporaneously (Minimal joint effusion without bony injury) PD MEDICAL DECISION MAKING - ED course ED course: 29-year-old gentleman presents with what seems like a ankle tendinitis. There was no specific injury but there was overuse. X-ray shows a tibiotalar joint effusion. He already has a walking boot and a cane which seem appropriate. Advised on follow-up. Declines anything stronger than [id number] meds for pain. Departure - Departure Disposition: 01 Home, Self Care Clinical Impression: Ankle tendinitis Condition: Good Record reviewed to determine appropriate education?: Yes Instructions: ED Sprain Ankle, ED Boot Aircast Walker Follow-Up: [facility] [Provider Group] Comments: Your x-ray today shows an ankle effusion but no bony injury. Rest, continue the immobilizer boot that you already have. Ibuprofen as needed for pain. If not improving in a week's time follow-up with the orthopedic clinic call for an appointment. Forms: Activity restrictions
--- NOTE | 2019-10-05 13:23 | XRAY Report ---
PROCEDURE: Ankle 3 View RT INDICATIONS: ankle injury TECHNIQUE: 3 views of the ankle were acquired. COMPARISON: None. FINDINGS: Bones: No fractures or dislocations. Ankle mortise is normally aligned. No suspicious bony lesions . Soft tissues: There is a small tibiotalar joint effusion. Achilles tendon appears normal. IMPRESSION: 1. No fracture or dislocation. 2. Small tibiotalar joint effusion. Reviewed by: Chapo De La Torre MD on 10/05/2019 1:22 PM PDT Approved by: Chapo De La Torre MD on 10/05/2019 1:22 PM PDT Station ID: [id number]
== END 2019-10-05 13:40 | disposition home or self-care (01) ==
LOC: ED 12:29
DX: M70.871 Other soft tissue disorders related to use, overuse and pressure, right ankle and foot (principal); F17.200 Nicotine dependence, unspecified, uncomplicated
CPT/HCPCS: 73610; 99283; 99284; A9270

== ENCOUNTER 2021-01-28 11:54 | Emergency (ER) | payer MEDICAID ==
[2021-01-28] MEDS ORDERED: HYDROmorphone 1 MG/ML CARPUJECT IM STA (12:42)
[2021-01-28] MEDS ORDERED: ceFAZolin 1 GM VIAL IM STA (12:43)
--- NOTE | 2021-01-28 12:51 | ED Physician Documentation ---
History of Present Illness - Stated complaint Stated Complaint: LT HAND CUT - Chief complaint Chief Complaint: Trauma Ext - Additonal information Additional information: 30-year-old male presents the emergency department for evaluation of a l aceration to his left thumb and left index finger sustained when using a table saw. He is right-handed. Tetanus is up-to-date within the last year. Review of Systems Constitutional: reports: Reviewed and negative Nose: reports: Reviewed and negative Throat: reports: Reviewed and negative Cardiac: reports: Reviewed and negative Respiratory: reports: Reviewed and negative GI: reports: Reviewed and negative Skin: reports: Laceration (s) Musculoskeletal: denies: Neck pain, Back pain Neurologic: reports: Reviewed and negative Psychiatric: reports: Reviewed and negative PD PAST MEDICAL HISTORY - Past Medical History Cardiovascular: None Respiratory: None Neuro: None Endocrine/Autoimmune: None GI: None : None HEENT: None Psych: None Musculoskeletal: None Derm: None - Past Surgical History Past Surgical History: No - Present Medications Home Medications: Ambulatory Orders Medication Instructions Recorded Confirmed Esomeprazole Magnesium [Nexium 20 mg PO DAILY 11/21/17 10/05/19 24Hr] cephALEXin [Keflex] 500 mg PO Q6H #28 cap 01/28/21 oxyCODONE [Roxicodone] 5 mg PO Q4-6H #20 tablet 01/28/21 - Allergies Allergies/Adverse Reactions: Allergies Allergy/AdvReac Type Severity Reaction Status Date / Time No Known Drug Allergies Allergy Verified 11/29/19 10:30 - Social History Does the pt smoke?: Yes Smoking Status: Current every day smoker Does the pt drink ETOH?: Yes Does the pt have substance abuse?: No - Immunizations Immunizations are current?: No Immunizations: TDAP >10years/unknown - POLST Patient has POLST: No PD ED PE EXPANDED - General General: Alert, In Pain - Extremities Extremities: Left hand (Laceration across the fat pad of the left thumb. Preserved flexion and extension at the DIP of the thumb. There is a 3 cm vertical incision on the dorsum of the left index finger across the PIP joint. The finger is held in flexion flexion at the PIP joint unable to extend. 98% sats) Results - Vitals Vitals: Vital Signs - 24 hr 01/28/21 12:31 Temperature 36.5 C Oxygen O2 Source Room air - Rads (name of study) left hand Radiology: Final report received (Soft tissue injury of the tuft of the index finger and thumb with no underlying bony abnormality) Procedures - Laceration (location) left index finger Length in cm: 4 Wound type: Irregular, Into muscle, Contaminated, Exposure of bone Neurovascular status: Sensory intact, Vascular intact Tendon involvement: Tendon Injury Anesthesia: Lidocaine 1% Wound preparation: Chlorhexadine, Irrigated copiously NS, Debrided moderately Skin layer closure: Size #-0 - enter number (4), Sutures - enter # (8) Other: Patient tolerated well, No complications left thumb Length in cm: 3 Wound type: Linear, Irregular, Into subcut fat, Into muscle, Contaminated Neurovascular status: Sensory intact, Motor intact, Vascular intact Tendon involvement: Tendon intact Anesthesia: Lidocaine 1% Wound preparation: Betadine, Irrigated copiously NS, debridement of wound edges (traumatic laceration/avulsion) Skin layer closure: Interrupted, Size #-0 - enter number (4), Sutures - enter # (7) Other: No complications, Neurovascular intact PD MEDICAL DECISION MAKING - ED course Complexity details: reviewed old records, reviewed results, considered differential, d/w warehouse consultant (Tamiko) ED course: 30-year-old male presents the emergency department with a left index finger laceration as well as a left thumb laceration while using a Table saw. The left index finger presents with a 4 cm vertical incision across the PIP joint. The finger is held in flexion at the PIP joint suggestive of an extensor tendon injury. He did receive an x-ray that did not show any obvious fracture. This case was discussed with Dr. Tracy Morrison on-call for hand surgery at [facility]. He would recommend closing the wound and placing in an ulnar gutter with abducted thumb. He will follow up in clinic next week. Patient was given Ancef today in the emergency department and will be discharged with Keflex as well as a limited prescription for Rupert. Otherwise emergent return precautions were discussed. Post splinting evaluation sowed warm well perfused digits. Routine splint care discussed I am prescribing a short course of short-acting opioid pain medication for this patient. I have reviewed the patients MEMBER OF CONGRESS and no concerning findings were noted. I have discussed that the opioids are for short term therapy only, and wi ll not be refilled from the ED. Departure - Departure Disposition: Home, Self Care Clinical Impression: Laceration of left index finger Qualifiers: Encounter type: initial encounter Damage to nail status: without damage Foreign body presence: without foreign body Qualified Code(s): S61.211A - Laceration without foreign body of left index finger without damage to nail, initial encounter Extensor tendon laceration of finger with open wound Qualifiers: Encounter type: initial encounter Qualified Code(s): S56.429A - Laceration of extensor muscle, fascia and tendon of unspecified finger at forearm level, initial encounter; S61.209A - Unspecified open wound of unspecified finger without damage to nail, initial encounter Thumb laceration Qualifiers: Encounter type: initial encounter Damage to nail status: without damage Foreign body presence: without foreign body Laterality: left Qualified Code(s): S61.012A - Laceration without foreign body of left thumb without damage to nail, initial encounter Condition: Stable Record reviewed to determine appropriate education?: Yes Instructions: ED Splint Care Fiberglass Follow-Up: TRACY MORRISON [Physician No Access] - Prescriptions: cephALEXin [Keflex] 500 mg PO Q6H #28 cap oxyCODONE [Roxicodone] 5 mg PO Q4-6H #20 tablet Comments: Wali unfortunately you sustained deep lacerations to your thumb and index finger. It appears that you have completely severed or lacerated the extensor tendon of your left index finger. In the long-term it is very important that you follow-up with Dr. Morrison at [facility] hand clinics. He would like to see you in office next week to discuss long-term surgical repair of this finger. These wounds are at very high risk of infection. You were given an injection of an antibiotic today in the emergency department. It is important that you fill the prescription for the antibiotics this afternoon and begin taking as directed. In general I would like you to take ibuprofen or Tylenol for discomfort but I have prescribed a limited amount of oxycodone. If at any point you have worsening pain, develop fevers uncontrolled vomiting please return to the ER for a second evaluation. I am prescribing a short course of narcotic pain medication for you. These are potentially dangerous and addictive medications that should be used carefully. These medications may constipate you. Take an olke-hvs-uybybni stool softener (docusate) twice daily with plenty of water while taking these medications. If you go 24 hours without a bowel movement, take vhjh-gow-[id number] miralax, per package instructions. Do not drink or drive while taking these medications. If you received narcotic or sedating medications while in the emergency department, do not drive for 24 hours. Store this medication in a safe, secure place and out of reach of children. It is a violation of federal law to give or sell this medication to another person or to use in a manner other than prescribed. The ED will not refill narcotic prescriptions, including prescriptions lost or stolen. To dispose of unwanted medications: 1. [facility] at [address] in [place] has a medication drop box. They accept prescription medications (in pill form) Saturday through Saturday 9:00 a.m. to 5:00 p.m. 2. The [facility] [employer] accepts prescription medications (in pill form only) for disposal year round. Call for more information. 3. Contact the [facility] for the next [facility] sponsored prescription drug collection event. , [phone], or [phone]; Note that many narcotic pain relievers also contain Tylenol/acetaminophen. Please ensure that your total dose of acetaminophen from all sources does not exceed 3 g (3000 mg) per day.
[2021-01-28] MEDS ORDERED: BACITRACIN ZINC OINT 1 PACKET TOP STA (13:35)
--- NOTE | 2021-01-28 13:47 | XRAY Report ---
PROCEDURE: Hand 2 View LT INDICATIONS: finger laceration/saw TECHNIQUE: 4 views of the hand(s) acquired. COMPARISON: None FINDINGS: Bones: No fractures or dislocations. No suspicious bony lesions. Soft tissues: There is soft tissue injury overlying the index finger and thumb. No radiopaque foreign bodies. IMPRESSION: Soft tissue injury of the tuft of the index finger and thumb with no underlying bony abnormality. Reviewed by: Glen Montez on 01/28/2021 1:46 PM [facility] Approved by: Glen Montez on 01/28/2021 1:46 PM [facility] Station ID: [id number]
[2021-01-28 14:42] VITALS: BP 143/84
== END 2021-01-28 14:42 | disposition home or self-care (01) ==
LOC: ED 11:54
DX: S66.321A Laceration of extensor muscle, fascia and tendon of left index finger at wrist and hand level, initial encounter (principal); S61.211A Laceration without foreign body of left index finger without damage to nail, initial encounter; S61.012A Laceration without foreign body of left thumb without damage to nail, initial encounter; W31.2XXA Contact with powered woodworking and forming machines, initial encounter; Y93.89 Activity, other specified; F17.200 Nicotine dependence, unspecified, uncomplicated
CPT/HCPCS: 12042; 13132; 29125; 73120; 96372; 99283; 99284; A9270; J1170

== ENCOUNTER 2023-01-14 08:33 | Emergency (ER) | payer MEDICAID, OTHER ==
[2023-01-14 08:49] VITALS: BP 148/95; O2SAT 98
[2023-01-14 09:11] LABS: BASOPHILS # (AUTO) 0.1 10^3/uL (0.0-0.1); EOSINOPHILS # (AUTO) 0.3 10^3/uL (0.0-0.7); EOSINOPHILS % (AUTO) 3.2 %; HCT - HEMATOCRIT 51.1 % (42.0-52.0); LYMPHOCYTES # (AUTO) 1.9 10^3/uL (1.5-3.5); LYMPHOCYTES % (AUTO) 23.6 %; MEAN CORPUSCULAR HEMOGLOBIN 29.6 pg (27.0-31.0); MEAN CORPUSCULAR HGB CONC 33.3 g/dL (32.0-36.0); MONOCYTES # (AUTO) 0.6 10^3/uL (0.0-1.0); MONOCYTES % (AUTO) 6.7 %; NEUTROPHILS # (AUTO) 5.4 10^3/uL (1.5-6.6); NEUTROPHILS % (AUTO) 65.3 %; PLT - PLATELET COUNT 281 10^3/uL (130-450); RED BLOOD COUNT 5.74 10^6/uL (4.70-6.10); RED CELL DISTRIBUTION WIDTH 12.3 % (12.0-15.0); WHITE BLOOD COUNT 8.2 x10^3/uL (4.8-10.8)
[2023-01-14 09:24] LABS: ALBUMIN 4.8 g/dL (3.2-5.5); ALBUMIN/GLOBULIN RATIO 2.4 (1.0-2.2); BILIRUBIN,TOTAL 0.4 mg/dL (0.2-1.0); CALCIUM 9.7 mg/dL (8.5-10.3); CREATININE 0.9 mg/dL (0.6-1.3); POTASSIUM 4.6 mmol/L (3.5-4.5); TOTAL PROTEIN 6.8 g/dL (6.4-8.9)
== END 2023-01-14 10:53 | disposition left against medical advice (07) ==
LOC: ED 08:33
DX: Z53.21 Procedure and treatment not carried out due to patient leaving prior to being seen by health care provider (principal)
CPT/HCPCS: 36415; 80053; 83690; 85025

== ENCOUNTER 2023-03-15 11:55 | Outpatient (CLI) | payer MEDICAID ==
[2023-03-15 14:18] LABS: BASOPHILS # (AUTO) 0.1 10^3/uL (0.0-0.1); BASOPHILS % (AUTO) 0.7 %; EOSINOPHILS # (AUTO) 0.2 10^3/uL (0.0-0.7); EOSINOPHILS % (AUTO) 2.9 %; HCT - HEMATOCRIT 46.3 % (42.0-52.0); HGB - HEMOGLOBIN 15.4 g/dL (14.0-18.0); LYMPHOCYTES % (AUTO) 26.2 %; MEAN CORPUSCULAR HEMOGLOBIN 29.2 pg (27.0-31.0); MEAN CORPUSCULAR HGB CONC 33.3 g/dL (32.0-36.0); MEAN CORPUSCULAR VOLUME 87.9 fL (80.0-94.0); MEAN PLATELET VOLUME 9.6 fL (7.4-11.4); MONOCYTES # (AUTO) 0.6 10^3/uL (0.0-1.0); MONOCYTES % (AUTO) 7.8 %; NEUTROPHILS # (AUTO) 4.4 10^3/uL (1.5-6.6); NEUTROPHILS % (AUTO) 57.8 %; PLT - PLATELET COUNT 278 10^3/uL (130-450); RED BLOOD COUNT 5.27 10^6/uL (4.70-6.10); RED CELL DISTRIBUTION WIDTH 12.6 % (12.0-15.0); WHITE BLOOD COUNT 7.7 x10^3/uL (4.8-10.8)
[2023-03-15 15:02] LABS: THYROID STIMULATING HORMONE 1.75 uIU/mL (0.34-5.60)
[2023-03-15 15:42] LABS: ALBUMIN 4.5 g/dL (3.2-5.5); ALBUMIN/GLOBULIN RATIO 1.7 (1.0-2.2); ALKALINE PHOSPHATASE 59 IU/L (42-121); ALT ALANINE AMINOTRANSFERASE 30 IU/L (10-60); AST ASPARTATE AMINOTRANSFERASE 23 IU/L (10-42); BILIRUBIN,TOTAL 0.5 mg/dL (0.2-1.0); BUN - BLOOD UREA NITROGEN 13 mg/dL (6-20); CALCIUM 9.3 mg/dL (8.5-10.3); CARBON DIOXIDE - CO2 30 mmol/L (21-32); CHLORIDE 101 mmol/L (101-111); CHOL/HDL RATIO 4.1 (<5.0); CHOLESTEROL 126 mg/dL; CREATININE 0.9 mg/dL (0.6-1.3); GFR - MDRD 98 (>89); GLUCOSE 92 mg/dL (74-104); HDL CHOLESTEROL 31 mg/dL; LDL CHOLESTEROL,CALCULATED 79 mg/dL; LDL/HDL RATIO 2.5 (<3.6); POTASSIUM 4.6 mmol/L (3.5-4.5); SODIUM 138 mmol/L (135-145); TOTAL PROTEIN 7.1 g/dL (6.4-8.9); TRIGLYCERIDES 80 mg/dL (48-352); VLDL CHOLESTEROL 16 mg/dL
[2023-03-15 20:56] LABS: ESTIMATED AVERAGE GLUCOSE 117 mg/dL (70-100); HEMOGLOBIN A1c% 5.7 % (4.27-6.07)
== END 2023-03-15 11:56 | disposition home or self-care (01) ==
LOC: LAB.S 11:55
PROVIDERS: ATTEND Physician Assistant Medical
DX: Z13.9 Encounter for screening, unspecified (principal)
CPT/HCPCS: 36415; 80050; 80061; 83036; 83721

== ENCOUNTER 2024-10-14 16:12 | Inpatient (IN) ==
--- NOTE | 2024-10-14 17:13 | ED Physician Documentation ---
PD HPI ABD PAIN Stated complaint Stated Complaint: GI Chief complaint Chief Complaint: Abd Pain Additional information Additional information: Patient with history of Ulcerative colitis on mesalamine. Presents with subjective fevers and constipation x 36 hours. He has been taking MiraLAX 1 suppository and several doses of Dulcolax without improvement. Notes constant lower abdominal pain worsening over the last 24 hours. Unable to tolerate p.o. due to degree of decreased appetite today. No chest pain difficulty breathing. No vomiting. Does report nausea. Meds/Allgy Home Medications Ambulatory Orders Medication Instructions Recorded Confirmed esomeprazole magnesium 20 mg 20 mg PO DAILY 11/21/17 1 capsule,delayed release (Nexium 24HR) allopurinol 100 mg tablet 100 mg PO BID PRN gout 12/1710/14/24 mesalamine 1,000 mg rectal 1 g HI 12/18/23 12/18/23 suppository trazodone 100 mg tablet 200 mg PO HS 12/18/23 albuterol sulfate 90 mcg/actuation 2 puff inhalation 6 XD PRN 05/04/24 aerosol inhaler (Proventil HFA) shortness of breath or wheezing #8.5 grams fluticasone propionate 45 2 puff inhalation BID #12 gr ams 05/04/24 mcg-salmeterol 21 mcg/actuation HFA inhaler (Advair HFA) armodafinil 150 mg tablet mg PO 10/14/24 Allergies Allergies Allergy/AdvReac Type Severity Reaction Status Date / Time No Known Drug Allergies Allergy Verified 10/14/24 16:33 PFSH Active Problems All Active Problems Perforation of sigmoid colon due to diverticulitis (Acute) Diverticulitis (Acute) Sepsis (Acute) Bipolar II disorder (Acute) Attention-deficit hyperactivity disorder, unspecified type (Acute) Anxiety disorder, unspecified (Acute) Generalized anxiety disorder (Acute) Ankle tendinitis (Acute) Sprain of left foot (Acute) Left ankle sprain (Acute) Hand laceration (Acute) Ankle sprain (Acute) Narcotic-induced respiratory depression (Acute) Lactic acidosis (Acute) DARY (acute kidney injury) (Acute) Rhabdomyolysis (Acute) Alcohol intoxication (Acute) Opioid overdose (Acute) Overdose of drug (Acute) Social History Social History Smoking Status: Current every day smoker Do you dip or chew tobacco?: Yes Do you vape?: No Patient requests smoking cessation consult: No Initiate information on smoking cessation: No Smoking Status Details: jasmina higginbotham Living arrangement: At home Living Condition: With family Relationship: Level: Independent Do you feel safe in your home environment?: Yes Suffered physical, verbal, emotional, or financial abuse?: No History of Abuse: No ETOH Use: Frequency: Daily Substance Use: cannabis (any form) Are you sexually active?: No POLST Patient has POLST: No Exam Exam Vital Signs: Vital Signs x48h Temp Pulse Resp BP Pulse Ox 10/14/24 16:30 37.7 C 104 H 18 147/88 H 95 Constitutional ill appearing non-toxic Eyes EOMs intact bilaterally Neck/C-Spine visual inspection normal Chest inspection of chest normal Respiratory clear to auscultation bilaterally Cardiovascular normal heart rate noted and regular rhythm noted Gastrointestinal abdomen soft to palpation +llq ttp Extremities normal to inspection 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-XII 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 Psychiatry thought process normal Skin skin color normal Results Vitals Vitals: Vital Signs - 24 hr 10/14/24 16:30 10/14/24 17:16 10/14/24 18:09 Temperature 37.7 C Temperature Source Temporal Artery Scan Pulse Rate 104 H Respiratory Rate 18 Blood Pressure 147/88 H O2 Saturation 95 O2 Source Room air Pain Intensity 10 9 10 10/14/24 18:41 10/14/24 18:46 10/14/24 19:17 Temperature Temperature Source Pulse Rate Respiratory Rate Blood Pressure O2 Saturation O2 Source Pain Intensity 10 10 10 10/14/24 19:29 Temperature 39.2 C H Temperature Source Oral Pulse Rate 107 H Respiratory Rate 26 H Blood Pressure 106/84 O2 Saturation 97 O2 Source Room air Pain Intensity 8 Oxygen O2 Source Room air Labs Labs: Laboratory Tests 10/14/24 10/14/24 17:03 17:42 WBC 19.9 H RBC 5.00 Hgb 15.0 Hct 43.8 MCV 87.6 MCH 30.0 MCHC 34.2 RDW 11.6 L Plt Count 279 MPV 8.8 Neut # (Auto) 18.1 H Lymph # (Auto) 0.5 L [place] # (Auto) 1.2 H Eos # (Auto) 0.0 Baso # (Auto) 0.0 Absolute Nucleated RBC 0.00 Nucleated RBC % 0.0 Sodium 132 L Potassium 4.0 Chloride 97 L Carbon Dioxide 28 Anion Gap 7.0 BUN 10 Creatinine 1.0 Estimated GFR (MDRD) 86 L Glucose 119 H Lactic Acid 0.9 Calcium 9.4 Total Bilirubin 1.4 H AST 34 ALT 41 Alkaline Phosphatase 57 Total Protein 7.6 Albumin 4.9 Globulin 2.7 Albumin/Globulin Ratio 1.8 Lipase 43 PD Medical Decision Making ED course ED course: Patient with hx of uc pw abdominal pain. Pt fev Discharge Plan Discharge Patient Disposition: 66 [facility] DC/Xfer Condition: Fair Clinical Impression: Sepsis, Diverticulitis Interventions: ED Admission Assessment Last Done: 10/14/24 20:14
[2024-10-14] MEDS: MORPHINE 10 MG/ML VIAL IVP STA ×2 (17:16→18:09)
[2024-10-14] MEDS: ONDANSETRON 4 MG/2 ML VIAL IVP STA (17:16)
[2024-10-14 17:21] LABS: HCT - HEMATOCRIT 43.8 % (42.0-52.0); HGB - HEMOGLOBIN 15.0 g/dL (14.0-18.0); MEAN PLATELET VOLUME 8.8 fL (7.4-11.4); NRBC ABSOLUTE COUNT (AUTO) 0.00 x10^3/uL; NUCLEATED RED BLOOD CELLS AUTO 0.0 /100WBC; PLT - PLATELET COUNT 279 10^3/uL (130-450); RED CELL DISTRIBUTION WIDTH 11.6 % (12.0-15.0)
[2024-10-14 17:41] LABS: ALT ALANINE AMINOTRANSFERASE 41.0 IU/L (10-60); AST ASPARTATE AMINOTRANSFERASE 34.0 IU/L (10-42); BUN - BLOOD UREA NITROGEN 10.0 mg/dL (6-20); CARBON DIOXIDE - CO2 28.0 mmol/L (21-32); CREATININE 1.0 mg/dL (0.6-1.3); GFR - MDRD 86.0 (>89)
[2024-10-14] MEDS: SODIUM CHLORIDE 0.9% 3,401.94 ML IV STA (17:42)
[2024-10-14] MEDS: PIPERACILLIN/TAZOBACTAM 3.375 GM in SODIUM CHLORIDE 0.9% MINIBAG 100 ML IV STA (17:46)
[2024-10-14] MEDS: diazePAM INJ 5 MG/ML SYRINGE IVP STA (18:11)
[2024-10-14] MEDS: fentaNYL 100 MCG/2 ML VIAL IVP STA ×2 (18:41→19:17)
--- NOTE | 2024-10-14 18:48 | XRAY Report ---
PROCEDURE: XR Chest 1V INDICATIONS: Sepsis TECHNIQUE: One view of the chest was acquired. COMPARISON: Chest radiograph 11/29/2019. FINDINGS: Surgical changes and devices: None. Lungs and pleura: No pleural effusions or pneumothorax. No consolidation. Mediastinum: Mediastinal contours appear normal. Heart size is normal. Bones and chest wall: No suspicious bony lesions. Overlying soft tissues appear unremarkable. IMPRESSION: No acute cardiopulmonary process. Reviewed by: Luda Newberry MD, PhD on 10/14/2024 6:47 PM PDT Approved by: Luda Newberry MD, PhD on 10/14/2024 6:47 PM PDT Station ID: [id number]
--- NOTE | 2024-10-14 18:54 | CT Report ---
PROCEDURE: CT Abdomen/Pelvis W INDICATIONS: abd pain hx of uc CONTRAST: Omni 300 100ml TECHNIQUE: After the administration of intravenous contrast, a CT scan of the abdomen and pelvis was performed. Images were recorded and evaluated at appropriate window settings. Reformats: coronal and sagittal. For radiation dose reduction, the following was used: automated exposure control, adjustment of mA and/or kV according to patient size. COMPARISON: None. FINDINGS: Image quality: Diagnostic. Lower chest: Unremarkable. Liver: No solid mass. Gallbladder: No radiopaque stones or wall thickening. Biliary tree: No intrahepatic or extrahepatic dilation, accounting for age. Spleen: No splenomegaly. Pancreas: No pancreatic ductal dilation. Adrenals: No adrenal nodule. Kidneys and ureters: No hydronephrosis. No renal cystic lesion which requires follow up. No solid mass. Stomach, bowel and peritoneum: No gastric or small bowel dilation. No abnormal wall thickening. No pathologic free fluid. Normal caliber appendix. Acute diverticulitis of the distal sigmoid colon with areas of extraluminal gas, for example 4/47, 2/132). No organized fluid collection. Lymph nodes: No central or retroperitoneal adenopathy. Vessels: No infrarenal aortic aneurysm. Patent portal vein. PELVIS Reproductive organs: Unremarkable. Bladder: No abnormal wall thickening. Pelvic lymph nodes: No pelvic adenopathy by size criteria. Bones: No aggressive osseous abnormality. Other: No significant ventral or inguinal hernia. IMPRESSION: Acute sigmoid diverticulitis with evidence of perforation. No organized fluid collection. Reviewed by: Luda Newberry MD, PhD on 10/14/2024 6:52 PM PDT Approved by: Luda Newberry MD, PhD on 10/14/2024 6:52 PM PDT Station ID: [id number]
--- NOTE | 2024-10-14 19:27 | ED Physician Documentation ---
PD HPI ABD PAIN Stated complaint Stated Complaint: GI Chief complaint Chief Complaint: Abd Pain Additional information Additional information: Patient with past medical history of Ulcerative colitis on mesalamine presents with abdominal pain and subjective fever x 24 hours.Pain is constant left lower quadrant nonradiating.Also reports unable to pass bowel movement for the past 24 hours. He has taken MiraLAX Dulcolax and 1 rectal suppository. Meds/Allgy Home Medications Ambulatory Orders Medication Instructions Recorded Confirmed esomeprazole magnesium 20 mg 20 mg PO DAILY 11/21/17 1 capsule,delayed release (Nexium 24HR) allopurinol 100 mg tablet 100 mg PO BID PRN gout 12/1710/14/24 mesalamine 1,000 mg rectal 1 g CO 12/18/23 12/18/23 suppository trazodone 100 mg tablet 200 mg PO HS 12/18/23 albuterol sulfate 90 mcg/actuation 2 puff inhalation 6 XD PRN 05/04/24 aerosol inhaler (Proventil HFA) shortness of breath or wheezing #8.5 grams fluticasone propionate 45 2 puff inhalation BID #12 gr ams 05/04/24 mcg-salmeterol 21 mcg/actuation HFA inhaler (Advair HFA) armodafinil 150 mg tablet mg PO 10/14/24 Allergies Allergies Allergy/AdvReac Type Severity Reaction Status Date / Time No Known Drug Allergies Allergy Verified 10/14/24 16:33 PFSH Active Problems All Active Problems (Updated 10/14/24 @ 19:21 by Pancho Woo MD) Diverticulitis (Acute) Sepsis (Acute) Bipolar II disorder (Acute) Attention-deficit hyperactivity disorder, unspecified type (Acute) Anxiety disorder, unspecified (Acute) Generalized anxiety disorder (Acute) Ankle tendinitis (Acute) Sprain of left foot (Acute) Left ankle sprain (Acute) Hand laceration (Acute) Ankle sprain (Acute) Narcotic-induced respiratory depression (Acute) Lactic acidosis (Acute) DARY (acute kidney injury) (Acute) Rhabdomyolysis (Acute) Alcohol intoxication (Acute) Opioid overdose (Acute) Overdose of drug (Acute) Social History Social History Smoking Status: Current every day smoker Do you dip or chew tobacco?: No Patient requests smoking cessation consult: No Initiate information on smoking cessation: No Living arrangement: At home Living Condition: With family Relationship: Do you feel safe in your home environment?: Yes Suffered physical, verbal, emotional, or financial abuse?: No History of Abuse: No ETOH Use: Frequency: Daily Are you sexually active?: No POLST Patient has POLST: No Exam Exam Vital Signs: Vital Signs x48h Temp Pulse Resp BP Pulse Ox 10/14/24 16:30 37.7 C 104 H 18 147/88 H 95 Constitutional ill appearing Eyes EOMs intact bilaterally Neck/C-Spine visual inspection normal Chest inspection of chest normal Respiratory breath sounds equal bilaterally Cardiovascular tachy to low 100s Gastrointestinal +llq ttp Back/Pelvis spine normal to inspection Extremities normal to inspection Neurology publication director II-XII intact, no movement abnormality noted and no focal motor deficit noted Psychiatry oriented x3, thought process normal and cooperative Skin skin color normal Results Vitals Vitals: Vital Signs - 24 hr 10/14/24 16:30 10/14/24 17:16 10/14/24 18:09 Temperature 37.7 C Temperature Source Temporal Artery Scan Pulse Rate 104 H Respiratory Rate 18 Blood Pressure 147/88 H O2 Saturation 95 O2 Source Room air Pain Intensity 10 9 10 10/14/24 18:41 10/14/24 18:46 10/14/24 19:17 Temperature Temperature Source Pulse Rate Respiratory Rate Blood Pressure O2 Saturation O2 Source Pain Intensity 10 10 10 Oxygen O2 Source Room air Tele (time rhythm occurred) 725pm: Telemetry / rhythm strip: Sinus tachycardia Labs Labs: Laboratory Tests 10/14/24 10/14/24 17:03 17:42 WBC 19.9 H RBC 5.00 Hgb 15.0 Hct 43.8 MCV 87.6 MCH 30.0 MCHC 34.2 RDW 11.6 L Plt Count 279 MPV 8.8 Neut # (Auto) 18.1 H Lymph # (Auto) 0.5 L [place] # (Auto) 1.2 H Eos # (Auto) 0.0 Baso # (Auto) 0.0 Absolute Nucleated RBC 0.00 Nucleated RBC % 0.0 Sodium 132 L Potassium 4.0 Chloride 97 L Carbon Dioxide 28 Anion Gap 7.0 BUN 10 Creatinine 1.0 Estimated GFR (MDRD) 86 L Glucose 119 H Lactic Acid 0.9 Calcium 9.4 Total Bilirubin 1.4 H AST 34 ALT 41 Alkaline Phosphatase 57 Total Protein 7.6 Albumin 4.9 Globulin 2.7 Albumin/Globulin Ratio 1.8 Lipase 43 Rads (name of study) ct abdomen and pelvis: Interpretation: acute diverticulitis with perf PD Medical Decision Making ED course ED course: Patient with left lower quadrant abdominal pain x 1 day here with elevated white count tachycardiaConcerning for sepsis given diverticulitis. Noted perforation on CT. Case discussed with general surgery. Recommends admission for IV antibiotics. Case discussed with hospitalist who agrees to accept patient. Fluid bolus started. Patient has ongoing pain but improved after treatment here Critical Care Critical Care Provided: Yes Time(min): 35 Comments: sepsis, diverticulitis with perf Discharge Plan Discharge Patient Disposition: 66 [facility] DC/Xfer Condition: Fair Clinical Impression: Sepsis, Diverticulitis Prescriptions: No Action albuterol sulfate [Proventil HFA] 90 mcg/actuation HFA aerosol inhaler 2 puff inhalation 6XD PRN (Reason: shortness of breath or wheezing) Qty: 8.5 2RF fluticasone propion-salmeterol [Advair HFA] 45-21 mcg/actuation HFA aerosol in haler 2 puff inhalation BID Qty: 12 2RF esomeprazole magnesium [Nexium 24HR] 20 MG capsule,delayed release(DR/EC) 20 mg PO DAILY trazodone 100 mg tablet 200 mg PO HS Rx Instructions: Take 2 tablet by mouth every night at bedtime prescribed elsewhere for sleep armodafinil 150 mg tablet PO Patient Comments: Take 1 TO 2 tablets BY MOUTH in the MORNING with a meal or snack and full glass of liquid only on days that Adderall is not utilized . Max of 2 tablets per day. allopurinol 100 mg tablet 100 mg PO BID PRN (Reason: gout) mesalamine 1,000 mg suppository 1 g CO Print Language: Marshallese
[2024-10-14] MEDS: ACETAMINOPHEN 1,000 MG/100 ML 1,000 MG/100 ML BAG IV ONE (19:43)
[2024-10-14] MEDS: HYDROmorphone 1 MG/ML CARPUJECT IVP PRN ×2 (19:52→20:55)
--- OUTSIDE RECORDS SUMMARY | 2024-10-14 19:54 | EXTERNAL MEDICAL SUMMARY RPT | Continuity of Care Document ---
Author Organization [place] Address [address] [address] Phone Results/Labs test date facility value unit notes Result panel 1 NUCLEATED RED BLOOD CELLS AUTO 2024-10-14 17:03 [facility] 0.0 /100wbc (missing) BASOPHILS # (AUTO) 2024-10-14 17:03 [facility] 0.0 10 3/ul (missing) EOSINOPHILS # (AUTO) 2024-10-14 17:03 [facility] 0.0 10 3/ul (missing) NRBC ABSOLUTE COUNT (AUTO) 2024-10-14 17:03 [facility] 0.00 x10 3/ul (missing) LYMPHOCYTES # (AUTO) 2024-10-14 17:03 [facility] 0.5 10 3/ul (missing) CREATININE 2024-10-14 17:03 [facility] 1.0 mg/dl As of September 2022 testing method has changed, this may include reference ranges. MONOCYTES # (AUTO) 2024-10-14 17:03 [facility] 1.2 10 3/ul (missing) BILIRUBIN,TOTAL 2024-10-14 17:03 [facility] 1.4 mg /dl As of September 2022 testing method has changed, this may include reference ranges. ALBUMIN/GLOBULIN RATIO 2024-10-14 17:03 [facility] 1.8 (missing) (missing) BUN - BLOOD UREA NITROGEN 2024-10-14 17:03 [facility] 10 mg/dl As of Sep testing method has changed, this may include reference ranges. RED CELL DISTRIBUTION WIDTH 2024-10-14 17:03 [facility] 11.6 % (missing) GLUCOSE 2024-10-14 17:03 [facility] 119 mg/dl As of September 2022 testing method has changed, this may include reference ranges. SODIUM 2024-10-14 17:03 [facility] 132 mmol/l (missing) HGB - HEMOGLOBIN 2024-10-14 17:03 [facility] 15.0 g /dl (missing) NEUTROPHILS # (AUTO) 2024-10-14 17:03 [facility] 18.1 10 3/ul (missing) WHITE BLOOD COUNT 2024-10-14 17:03 [facility] 19.9 x10 3/ul (missing) GLOBULIN 2024-10-14 17:03 [facility] 2.7 g/dl (missing) PLT - PLATELET COUNT 2024-10-14 17:03 [facility] 279 10 3/ul (missing) CARBON DIOXIDE - CO2 2024-10-14 17:03 [facility] 28 mmol/l As of September 2022 testing method has changed, this may include reference ranges. MEAN CORPUSCULAR HEMOGLOBIN 2024-10-14 17:03 [facility] 30.0 pg (missing) AST ASPARTATE AMINOTRANSFERASE 2024-10-14 17:03 [facility] 34 iu/l As of September 2022 testing method has changed, this may include reference ranges. MEAN CORPUSCULAR HGB CONC 2024-10-14 17:03 [facility] 34.2 g/dl (missing) POTASSIUM 2024-10-14 17:03 [facility] 4.0 mmol/l As of September 2022 testing method has changed, this may include reference ranges. ALBUMIN 2024-10-14 17:03 [facility] 4.9 g/dl As of September 2022 testing method has changed, this may include reference ranges. ALT ALANINE AMINOTRANSFERASE 2024-10-14 17:03 [facility] 41 iu/l As of September 2022 testing method has changed, this may include reference ranges. LIPASE 2024-10-14 17:03 [facility] 43 u/l As of September 2022 testing method has changed, this may include reference ranges. HCT - HEMATOCRIT 2024-10-14 17:03 [facility] 43.8 % (missing) RED BLOOD COUNT 2024-10-14 17:03 [facility] 5.00 10 6/ul (missing) ALKALINE PHOSPHATASE 2024-10-14 17:03 [facility] 57 iu/l As of September 2022 testing method has changed, this may include reference ranges. ANION GAP 2024-10-14 17:03 [facility] 7.0 (missing ) (missing) TOTAL PROTEIN 2024-10-14 17:03 [facility] 7.6 g/dl As of September 2022 testing method has changed, this may include reference ranges. MEAN PLATELET VOLUME 2024-10-14 17:03 [facility] 8.8 fl (missing) GFR - MDRD 2024-10-14 17:03 [facility] 86 (missin g) Social History date description facility
--- NOTE | 2024-10-14 19:55 | HISTORY & PHYSICAL EXAMINATION ---
Chief Complaint Chief Complaint Chief Complaint: Abdominal pain History of Present Illness Admitted From Admitted From:: Home History Obtained From History obtained from: Patient interview History of Present Illness HPI Comment/Other: 34-year-old male with history of bipolar disorder as well as ulcerative colitis who presents with abdominal pain x 2 days. He states it was very severe yesterday, but today it was severe enough that he cried most of the day. He also reports subjective fever starting today. Reports last bowel movement 2 days ago. Denies chest pain, dyspnea, urinary abnormality. In the ER, CT abdomen/pelvis was performed which showed acute sigmoid diverticulitis with evidence of perforation. He was given multiple doses of narcotic pain medicine to include a total of 150 mcg of fentanyl, 5 mg diazepam, 10 mg morphine. General surgery was contacted by ER provider, who recommended admission to medicine with surgery consultation. In discussion with the on-call surgeon, it appears to be a very small, contained Perforation. Patient therefore was admitted to hospitalist service for medical management of diverticulitis with perforation. General surgery to follow Meds/Allgy Home Medications Ambulatory Orders Medication Instructions Recorded Confirmed esomeprazole magnesium 20 mg 20 mg PO DAILY 11/21/17 1 capsule,delayed release (Nexium 24HR) allopurinol 100 mg tablet 100 mg PO BID PRN gout 12/1710/14/24 mesalamine 1,000 mg rectal 1 g VT 12/18/23 12/18/23 suppository trazodone 100 mg tablet 200 mg PO HS 12/18/23 albuterol sulfate 90 mcg/actuation 2 puff inhalation 6 XD PRN 05/04/24 aerosol inhaler (Proventil HFA) shortness of breath or wheezing #8.5 grams fluticasone propionate 45 2 puff inhalation BID #12 gr ams 05/04/24 mcg-salmeterol 21 mcg/actuation HFA inhaler (Advair HFA) armodafinil 150 mg tablet mg PO 10/14/24 Allergies Allergies Allergy/AdvReac Type Severity Reaction Status Date / Time No Known Drug Allergies Allergy Verified 10/14/24 16:33 PFSH Active Problems All Active Problems (Updated 10/14/24 @ 19:21 by Pancho Woo MD) Diverticulitis (Acute) Sepsis (Acute) Bipolar II disorder (Acute) Attention-deficit hyperactivity disorder, unspecified type (Acute) Anxiety disorder, unspecified (Acute) Generalized anxiety disorder (Acute) Ankle tendinitis (Acute) Sprain of left foot (Acute) Left ankle sprain (Acute) Hand laceration (Acute) Ankle sprain (Acute) Narcotic-induced respiratory depression (Acute) Lactic acidosis (Acute) DARY (acute kidney injury) (Acute) Rhabdomyolysis (Acute) Alcohol intoxication (Acute) Opioid overdose (Acute) Overdose of drug (Acute) Social History Social History Smoking Status: Current every day smoker Do you dip or chew tobacco?: No Patient requests smoking cessation consult: No Initiate information on smoking cessation: No Living arrangement: At home Living Condition: With family Relationship: Do you feel safe in your home environment?: Yes Suffered physical, verbal, emotional, or financial abuse?: No History of Abuse: No ETOH Use: Frequency: Daily Are you sexually active?: No POLST Patient has POLST: No Review of Systems Status of ROS: 10 or more systems reviewed and unremarkable except as noted in history and below Constitutional Reports: Fever and Chills Cardiovascular Reports: shortness of breath with exertion (Due to abdominal pain); Denies: Irregular heart rate, chest pain or palpitations Respiratory Reports: Shortness of breath (Due to abdominal pain); Denies: Cough Gastrointestinal Reports: Abdominal pain; Denies: Nausea, Vomiting or Diarrhea Exam Exam Vital Signs: Vital Signs x48h Temp Pulse Resp BP Pulse Ox O2 Flow Rate 10/14/24 19:58 38.1 C H 115 H 28 H 130/76 97 2 10/14/24 19:29 39.2 C H 107 H 26 H 106/84 97 10/14/24 16:30 37.7 C 104 H 18 147/88 H 95 Constitutional normal general appearance Appears anxious, in obvious pain HENMT normocephalic and head/scalp atraumatic Eyes PERRL Neck/C-Spine visual inspection normal Lymph no lymphadenopathy noted Chest inspection of chest normal Respiratory breath sounds equal bilaterally and normal respiratory effort Cardiovascular normal heart rate noted and regular rhythm noted Gastrointestinal Abdomen nonrigid to palpation. Very tender with guarding Extremities normal to inspection and normal to palpation Neurology GCS 15 Psychiatry oriented x3 and psychomotor abnormality noted (agitated) Skin skin color normal Conclusion/Plan Problem List (1) Sepsis: Plan: Sepsis secondary to diverticulitis with perforation Meets criteria with temperature 39.2, heart rate 107, respiratory rate 26, WBC 19.9 Received 30 cc/KG fluid bolus in the ER Blood cultures in progress Received Zosyn 3.375 g once per ER provider Continue Zosyn 4.5 g Q6R Manage diverticulitis as below (2) Diverticulitis: Plan: Surgery consulted by ER provider N.p.o. NS at 100 Pain management with Dilaudid 1 mg every 2 hours IV push, Tylenol 1 g IV every 6 as needed On-call surgeon reviewed imaging. He reports that this is a small perforation that can possibly be managed nonoperatively. We will monitor him on antibiotics and if he does not stabilize he will go to the OR (3) Generalized anxiety disorder: Plan: Received Valium 5 mg IV push in the ER I have ordered 0.5 mg Ativan IV push every 2 hours as needed Plan Admit to inpatient Full code His mother is his surrogate decision maker Lab Results Lab results reviewed: Yes 10/14/24 17:03 10/14/24 17:03 Diagnostic Imaging Results Diagnostic Imaging Results: positive Final report reviewed Core Measures Anticipated LOS I expect patient to be DC'd or transferred within 96 hours.: Yes DVT/VTE - Prophylaxis VTE/DVT Prophylaxis med ordered at admit?: Yes
--- NOTE | 2024-10-14 19:57 | CONSULTATION NOTE ---
Referring Provider Name of Referring Provider:: Dr. Woo Consult Date: 10/14/24 Chief Complaint Chief Complaint Chief Complaint: Abdominal pain History of Present Illness Admitted From Admitted From:: ED History Obtained From History obtained from: Patient History of Present Illness HPI Comment/Other: Wali is a 34 year old male who developed LLQ abdominal pain yesterday morning. It was sharp, constant and non-radiating. The pain persisted all day and was present throughout the day today. He sought medical attention this afternoon in the ED and was found to have CT evidence of sigmoid diverticulitis with contained perforation. Wali has not had a bowel motion since Saturday. He denies fevers, chills or sweats. The patient carries the diagnosis of ulcerative colitis for which he takes Mesalamine. He is not on steroids or immunotherapy. His symptoms today are not similar to pain related to his [facility] Active Problems All Active Problems Perforation of sigmoid colon due to diverticulitis (Acute) Diverticulitis (Acute) Sepsis (Acute) Bipolar II disorder (Acute) Attention-deficit hyperactivity disorder, unspecified type (Acute) Anxiety disorder, unspecified (Acute) Generalized anxiety disorder (Acute) Ankle tendinitis (Acute) Sprain of left foot (Acute) Left ankle sprain (Acute) Hand laceration (Acute) Ankle sprain (Acute) Narcotic-induced respiratory depression (Acute) Lactic acidosis (Acute) DARY (acute kidney injury) (Acute) Rhabdomyolysis (Acute) Alcohol intoxication (Acute) Opioid overdose (Acute) Overdose of drug (Acute) Social History Social History Smoking Status: Current every day smoker Do you dip or chew tobacco?: No Patient requests smoking cessation consult: No Initiate information on smoking cessation: No Living arrangement: At home Living Condition: With family Relationship: Do you feel safe in your home environment?: Yes Suffered physical, verbal, emotional, or financial abuse?: No History of Abuse: No ETOH Use: Frequency: Daily Are you sexually active?: No POLST Patient has POLST: No Meds/Allgy Home Medications Ambulatory Orders Medication Instructions Recorded Confirmed esomeprazole magnesium 20 mg 20 mg PO DAILY 11/21/17 1 capsule,delayed release (Nexium 24HR) allopurinol 100 mg tablet 100 mg PO BID PRN gout 12/1710/14/24 mesalamine 1,000 mg rectal 1 g ND 12/18/23 12/18/23 suppository trazodone 100 mg tablet 200 mg PO HS 12/18/23 albuterol sulfate 90 mcg/actuation 2 puff inhalation 6 XD PRN 05/04/24 aerosol inhaler (Proventil HFA) shortness of breath or wheezing #8.5 grams fluticasone propionate 45 2 puff inhalation BID #12 gr ams 05/04/24 mcg-salmeterol 21 mcg/actuation HFA inhaler (Advair HFA) armodafinil 150 mg tablet mg PO 10/14/24 Allergies Allergies Allergy/AdvReac Type Severity Reaction Status Date / Time No Known Drug Allergies Allergy Verified 10/14/24 16:33 Results Lab Results 10/14/24 17:03 10/14/24 17:03 Other Lab Results: Lab Results x24hrs 10/14/24 10/14/24 Range/Units 17:42 17:03 WBC 19.9 H (4.8-10.8) x10^3/uL RBC 5.00 (4.70-6.10) 10^6/uL Hgb 15.0 (14.0-18.0) g/dL Hct 43.8 (42.0-52.0) % MCV 87.6 (80.0-94.0) fL MCH 30.0 (27.0-31.0) pg MCHC 34.2 (32.0-36.0) g/dL RDW 11.6 L (12.0-15.0) % Plt Count 279 (130-450) 10^3/uL MPV 8.8 (7.4-11.4) fL Neut # (Auto) 18.1 H (1.5-6.6) 10^3/uL Lymph # (Auto) 0.5 L (1.5-3.5) 10^3/uL [place] # (Auto) 1.2 H (0.0-1.0) 10^3/uL Eos # (Auto) 0.0 (0.0-0.7) 10^3/uL Baso # (Auto) 0.0 (0.0-0.1) 10^3/uL Absolute Nucleated RBC 0.00 x10^3/uL Nucleated RBC % 0.0 /100WBC Sodium 132 L (135-145) mmol/L Potassium 4.0 (3.5-4.5) mmol/L Chloride 97 L (101-111) mmol/L Carbon Dioxide 28 (21-32) mmol/L Anion Gap 7.0 (6-13) BUN 10 (6-20) mg/dL Creatinine 1.0 (0.6-1.3) mg/dL Estimated GFR (MDRD) 86 L (>89) Glucose 119 H (74-104) mg/dL Lactic Acid 0.9 (0.5-2.2) mmol/L Calcium 9.4 (8.5-10.3) mg/dL Total Bilirubin 1.4 H (0.2-1.0) mg/dL AST 34 (10-42) IU/L ALT 41 (10-60) IU/L Alkaline Phosphatase 57 (42-121) IU/L Total Protein 7.6 (6.4-8.9) g/dL Albumin 4.9 (3.2-5.5) g/dL Globulin 2.7 (2.1-4.2) g/dL Albumin/Globulin Ratio 1.8 (1.0-2.2) Lipase 43 (11-82) U/L Diagnostic Imaging Results Diagnostic Imaging Results: positive Final report reviewed Diagnostic Imaging Results Comments: CT Abd - inflammation about sigmoid colon with small amopunt of air in pericolonic tissues. No intraperitoneal air seen elsewhere Review of Systems LLQ pain with obstipation. Denies fevers, chills Exam Exam Vital Signs: Vital Signs x48h Temp Pulse Resp BP Pulse Ox 10/14/24 19:29 39.2 C H 107 H 26 H 106/84 97 10/14/24 16:30 37.7 C 104 H 18 147/88 H 95 Constitutional normal general appearance and average body habitus Mild abdominal distress HENMT normocephalic, head/scalp atraumatic, hearing grossly normal bilaterally, oral mucous membranes normal and oropharynx normal Eyes PERRL, EOMs intact bilaterally, conjunctivae normal and no scleral icterus Neck/C-Spine visual inspection normal and trachea midline Lymph no lymphadenopathy noted Respiratory breath sounds equal bilaterally, normal respiratory effort and clear to auscultation bilaterally Cardiovascular normal heart rate noted and peripheral pulses 2+ throughout Sinus tachycardia Gastrointestinal Abdomen is soft with maximal tenderness in the LLQ. BS are absent. There is no distension Extremities normal to inspection, normal to palpation and no tenderness Neurology no focal motor deficit noted Psychiatry mental status grossly normal, oriented x3, thought process normal and cooperative Skin skin color normal, no rash and no lesions Conclusion/Plan Problem List (1) Perforation of sigmoid colon due to diverticulitis: Plan 1) The patient has been admitted to the Medicine Service for IV fluids, bowel rest, IV analgesics, and IV antibiotics 2) NPO 3) Daily CBC, BMP 4) If patient develops an abscess, IR drainage can be considered. 5) If patient's condition worsens, exploratory laparotomy, sigmoid colectomy, and end descending colostomy will be offered. Juan Carlos Medina MD, [facility] General Surgery Service Lab Results 10/14/24 17:03 10/14/24 17:03 Diagnostic Imaging Results Diagnostic Imaging Results: positive Final report reviewed
[2024-10-14] MEDS ORDERED: ACETAMINOPHEN 1,000 MG/100 ML 1,000 MG/100 ML BAG IV PRN (20:21)
[2024-10-14] MEDS: SODIUM CHLORIDE 0.9% 1,000 ML IV SCH (20:40)
[2024-10-14] MEDS: NICOTINE 21 MG PATCH TOP SCH (20:54)
[2024-10-14] MEDS: ENOXAPARIN 40 MG/0.4 ML SYRINGE SUBQ SCH (20:55)
[2024-10-14] MEDS: KETOROLAC 30 MG/ML VIAL IVP SCH (21:48)
[2024-10-14 22:17] LABS: GLUCOSE, URINE (UA) NEGATIVE (NEGATIVE); KETONES,URINE (UA) NEGATIVE (NEGATIVE); OCCULT BLOOD,URINE NEGATIVE (NEGATIVE)
[2024-10-14] MEDS: PIPERACILLIN/TAZOBACTAM 4.5 GM in SODIUM CHLORIDE 0.9% MINIBAG 100 ML IV SCH (22:32)
[2024-10-15] MEDS: SODIUM CHLORIDE FLUSH 0.9% 10 ML SYRINGE IVP SCH (00:33)
[2024-10-15] MEDS: ONDANSETRON 4 MG/2 ML VIAL IVP PRN (01:20)
[2024-10-15 05:25] LABS: HCT - HEMATOCRIT 40.9 % (42.0-52.0); HGB - HEMOGLOBIN 14.2 g/dL (14.0-18.0); MEAN PLATELET VOLUME 8.9 fL (7.4-11.4); PLT - PLATELET COUNT 261 10^3/uL (130-450); RED CELL DISTRIBUTION WIDTH 11.7 % (12.0-15.0)
[2024-10-15 05:35] LABS: ABNORMAL LYMPHS % (MANUAL) 0 %; BASOPHILS # (MANUAL) 0.0 10^3/uL (0-0.1); EOSINOPHILS # (MANUAL) 0.0 10^3/uL (0-0.7)
[2024-10-15 05:41] LABS: BUN - BLOOD UREA NITROGEN 12.0 mg/dL (6-20); CARBON DIOXIDE - CO2 27.0 mmol/L (21-32); CREATININE 1.0 mg/dL (0.6-1.3); GFR - MDRD 86.0 (>89)
[2024-10-15 05:49] LABS: BAND NEUTROPHILS % (MANUAL) 26 %; LYMPHOCYTES # (MANUAL) 2.6 10^3/uL (1.5-3.5); LYMPHOCYTES % (MANUAL) 10 %; MONOCYTES # (MANUAL) 0.3 10^3/uL (0.0-1.0); NEUTROPHILS # (MANUAL) 23.2 10^3/uL (1.5-6.6); PLATELET ESTIMATE, MANUAL NORMAL (130-450,000) (NORMAL); PLATELET MORPHOLOGY NORMAL APPEARANCE (NORMAL); RBC MORPHOLOGY (MULTIPLE) NORMAL APPEARANCE (NORMAL); WBC MORPHOLOGY (MULTIPLE) NORMAL APPEARANCE (NORMAL)
--- NOTE | 2024-10-15 06:51 | PROVIDER PROGRESS NOTE ---
Progress Note Progress Note Progress Note: General Surgery Progress Note Hospital Day # 1 - Sigmoid diverticulitis with CT evidence of a contained microperforation Code Status: Full ASSESSMENT: 1) Clinically improved (Tachycardia less, Abdominal pain less, Renal function normal). Generalize peritonitis is not present at this time. 2) Leukocytosis PLAN: 1) Continue maintenance IV fluids 2) Ice chips 3) Continue IV Zosyn 4) If condition starts to deteriorate, will consider diagnostic laparoscopy with washout and drain placement, possible laparotomy and Montes's. Surgery will closely follow. <><><><><> PERTINENT INTERVAL ISSUES: None S: Less abdominal pain but LLQ still very tender; No nausea or emesis OBJECTIVE: I/O: 3,901/800 VS: BP 94/61; P 94; RR 20; T 36.5; O2 sat 95% EXAMINATION: MENTAL STATUS: AAO; Abdominal discomfort persists but somewhat less than last night EYES: Pupils equal, round and reactive to light, sclera anicteric, EARS, NOSE, MOUTH, THROAT: Normal hearing, Oral mucous membranes moist and without lesions; NECK: No crepitus, lymphadenopathy, or thyromegaly LUNGS: Clear to auscultation without wheezing; No use of accessory muscles to breathe CARDIOVASCULAR: Heart-NSR without murmurs; ABD: Soft, Max tenderness in LLQ; No percussion tenderness, bowel sounds now present EXTREMITIES: No clubbing, cyanosis, infections SKIN: Anicteric; No rashes, lesions, ulcerations LABS: WBC 26; H&H 14.2/40.9; PLT 261K; NA 135; K 4.1; Cr 1.0; Glu 118; Lactic acid 0.9 CULTURES: Blood - pending IMAGING: None today ANTIMICROBIALS: Zosyn PAIN CONTROL: Dilaudid IV prn, Ketorolac IV, IV Acetaminophen VTEP: Chemical: Enoxaparin, 40mg, SQ, QD Mechanical: SCD Carson Medina MD, FACS General Surgery Service
[2024-10-15] MEDS: HYDROmorphone 1 MG/ML CARPUJECT IVP PRN (07:00)
[2024-10-15] MEDS: LORazepam 2 MG/ML VIAL IVP PRN (07:21)
[2024-10-15] MEDS: HYDROmorphone 2 MG/ML VIAL IVP PRN (09:39)
--- NOTE | 2024-10-15 12:05 | PROVIDER PROGRESS NOTE ---
Subjective Prog Note Date Prog Note Date: 10/15/24 Subjective Pt reports feeling: No change Current Medications Current Medications Current Medications: Current Medications Generic Name Dose Route Start Last Admin Trade Name Freq PRN Reason Stop Dose Admin Acetaminophen 1,000 mg 10/15/24 14:00 Acetaminophen 500 Mg Tablet PO TID DANIEL Enoxaparin Sodium 40 mg 10/14/24 21:00 10/14/24 20:55 Enoxaparin 40 Mg/0.4 Ml Syringe SUBQ 40 mg HS DANIEL Administration Hydromorphone HCl 2 mg 10/15/24 08:57 10/15/24 10:47 Hydromorphone 2 Mg/Ml Vial IVP 2 mg Q1H PRN Administration Severe Pain (Level 7-10) Sodium Chloride 1,000 mls @ 100 mls/hr 10/14/24 20:21 10/15/24 08:55 Normal Saline 0.9% IV 100 mls/hr .Q10H DANIEL Administration Piperacillin Sod/Tazobactam 100 mls @ 25 mls/hr 10/14/24 23:00 10/15/24 10:24 Sod 4.5 gm/ Sodium Chloride IV Infused Q8H DANIEL Infusion Ketorolac Tromethamine 30 mg 10/14/24 22:00 10/15/24 09:39 Ketorolac 30 Mg/Ml Vial IVP 10/15/24 22:01 30 mg Q6H DANIEL Administration Lorazepam 0.5 mg 10/14/24 20:21 10/15/24 07:21 Lorazepam 2 Mg/Ml Vial IVP 0.5 mg Q2H PRN Administration Anxiety Nicotine 1 patch 10/14/24 21:00 10/14/24 20:54 Nicotine 21 Mg Patch TOP 1 patch HS DANIEL Administration Ondansetron HCl 4 mg 10/14/24 20:21 10/15/24 01:20 Ondansetron 4 Mg/2 Ml Vial IVP 4 mg Q6HR PRN Administration Nausea / Vomiting Sodium Chloride 10 ml 10/14/24 20:21 Sodium Chloride Flush 0.9% 10 Ml Syringe IVP PRN PRN NEEDED PER PROVIDER ORDERS Sodium Chloride 10 ml 10/15/24 01:00 10/15/24 08:29 Sodium Chloride Flush 0.9% 10 Ml Syringe IVP 10 ml 0100,0900,1700 DANIEL Administration Objective Vital Signs/Intake & Output Reviewed Vital Signs: Yes Vital Signs: Vital Signs x48h Temp Pulse Resp BP Pulse Ox 10/15/24 07:56 36.6 C 85 16 115/72 92 Intake & Output: Intake & Output 10/12/24 10/13/24 10/14/24 10/15/24 23:59 23:59 23:59 23:59 Intake Total 3801.94 / 3801.94 1200 / 1200 Output Total 400 / 400 775 / 775 Balance 3401.94 / 3401.94 425 / 425 Weight (kg) 120 kg Objective General Appearance: positive Alert and Anxious Eyes Bilateral: positive Normal inspection Neck: positive Nml inspection Respiratory: positive Chest non-tender Cardiovascular: positive Regular rate & rhythm Abdomen: positive Tenderness; negative Nml bowel sounds (Hypoactive) Skin: positive Color nml Extremities: positive Non-tender Neurologic/Psychiatric: positive Oriented x3 Lab Results 10/15/24 04:41 10/15/24 04:41 Other Labs: Lab Results x24hrs 10/15/24 10/14/24 10/14/24 Range/Units 04:41 20:09 17:42 WBC 26.1 H (4.8-10.8) x10^3/uL RBC 4.67 L (4.70-6.10) 10^6/uL Hgb 14.2 (14.0-18.0) g/dL Hct 40.9 L (42.0-52.0) % MCV 87.6 (80.0-94.0) fL MCH 30.4 (27.0-31.0) pg MCHC 34.7 (32.0-36.0) g/dL RDW 11.7 L (12.0-15.0) % Plt Count 261 (130-450) 10^3/uL MPV 8.9 (7.4-11.4) fL Neut # (Auto) Not Reportable (1.5-6.6) 10^3/uL Lymph # (Auto) Not Reportable (1.5-3.5) 10^3/uL Phillips # (Auto) Not Reportable (0.0-1.0) 10^3/uL Eos # (Auto) Not Reportable (0.0-0.7) 10^3/uL Baso # (Auto) Not Reportable (0.0-0.1) 10^3/uL Absolute Nucleated RBC Not Reportable x10^3/uL Total Counted 100 Band Neuts % (Manual) 26 H (0 - 10) % Abnorm Lymph % (Manual) 0 % Nucleated RBC % Not Reportable /100WBC Neutrophils # (Manual) 23.2 H (1.5-6.6) 10^3/uL Lymphocytes # (Manual) 2.6 (1.5-3.5) 10^3/uL Monocytes # (Manual) 0.3 (0.0-1.0) 10^3/uL Eosinophils # (Manual) 0.0 (0-0.7) 10^3/uL Basophils # (Manual) 0.0 (0-0.1) 10^3/uL Differential Comment MANUAL DIFFERENTIAL WBC Morphology NORMAL APPEARANCE (NORMAL) Platelet Estimate NORMAL (130-450,000) (NORMAL) Platelet Morphology NORMAL APPEARANCE (NORMAL) RBC Morph Micro Appear NORMAL APPEARANCE (NORMAL) Sodium 136 (135-145) mmol/L Potassium 4.1 (3.5-4.5) mmol/L Chloride 101 (101-111) mmol/L Carbon Dioxide 27 (21-32) mmol/L Anion Gap 8.0 (6-13) BUN 12 (6-20) mg/dL Creatinine 1.0 (0.6-1.3) mg/dL Estimated GFR (MDRD) 86 L (>89) Glucose 118 H (74-104) mg/dL Lactic Acid 0.9 (0.5-2.2) mmol/L Calcium 8.6 (8.5-10.3) mg/dL Total Bilirubin (0.2-1.0) mg/dL AST (10-42) IU/L ALT (10-60) IU/L Alkaline Phosphatase (42-121) IU/L Total Protein (6.4-8.9) g/dL Albumin (3.2-5.5) g/dL Globulin (2.1-4.2) g/dL Albumin/Globulin Ratio (1.0-2.2) Lipase (11-82) U/L Urine Color YELLOW Urine Clarity CLEAR (CLEAR) Urine pH 6.0 (5.0-7.5) PH Ur Specific [place]be 1.010 (1.002-1.030) Urine Protein NEGATIVE (NEGATIVE) mg/dL Urine Glucose (UA) NEGATIVE (NEGATIVE) mg/dL Urine Ketones NEGATIVE (NEGATIVE) mg/dL Urine Occult Blood NEGATIVE (NEGATIVE) Urine Nitrite NEGATIVE (NEGATIVE) Urine Bilirubin NEGATIVE (NEGATIVE) Urine Urobilinogen 0.2 (NORMAL) (NORMAL) E.U./dL Ur Leukocyte Esterase NEGATIVE (NEGATIVE) Ur Microscopic Review NOT INDICATED Urine Culture Comments NOT INDICATED 10/14/24 Range/Units 17:03 WBC 19.9 H (4.8-10.8) x10^3/uL RBC 5.00 (4.70-6.10) 10^6/uL Hgb 15.0 (14.0-18.0) g/dL Hct 43.8 (42.0-52.0) % MCV 87.6 (80.0-94.0) fL MCH 30.0 (27.0-31.0) pg MCHC 34.2 (32.0-36.0) g/dL RDW 11.6 L (12.0-15.0) % Plt Count 279 (130-450) 10^3/uL MPV 8.8 (7.4-11.4) fL Neut # (Auto) 18.1 H (1.5-6.6) 10^3/uL Lymph # (Auto) 0.5 L (1.5-3.5) 10^3/uL Phillips # (Auto) 1.2 H (0.0-1.0) 10^3/uL Eos # (Auto) 0.0 (0.0-0.7) 10^3/uL Baso # (Auto) 0.0 (0.0-0.1) 10^3/uL Absolute Nucleated RBC 0.00 x10^3/uL Total Counted Band Neuts % (Manual) (0 - 10) % Abnorm Lymph % (Manual) % Nucleated RBC % 0.0 /100WBC Neutrophils # (Manual) (1.5-6.6) 10^3/uL Lymphocytes # (Manual) (1.5-3.5) 10^3/uL Monocytes # (Manual) (0.0-1.0) 10^3/uL Eosinophils # (Manual) (0-0.7) 10^3/uL Basophils # (Manual) (0-0.1) 10^3/uL Differential Comment WBC Morphology (NORMAL) Platelet Estimate (NORMAL) Platelet Morphology (NORMAL) RBC Morph Micro Appear (NORMAL) Sodium 132 L (135-145) mmol/L Potassium 4.0 (3.5-4.5) mmol/L Chloride 97 L (101-111) mmol/L Carbon Dioxide 28 (21-32) mmol/L Anion Gap 7.0 (6-13) BUN 10 (6-20) mg/dL Creatinine 1.0 (0.6-1.3) mg/dL Estimated GFR (MDRD) 86 L (>89) Glucose 119 H (74-104) mg/dL Lactic Acid (0.5-2.2) mmol/L Calcium 9.4 (8.5-10.3) mg/dL Total Bilirubin 1.4 H (0.2-1.0) mg/dL AST 34 (10-42) IU/L ALT 41 (10-60) IU/L Alkaline Phosphatase 57 (42-121) IU/L Total Protein 7.6 (6.4-8.9) g/dL Albumin 4.9 (3.2-5.5) g/dL Globulin 2.7 (2.1-4.2) g/dL Albumin/Globulin Ratio 1.8 (1.0-2.2) Lipase 43 (11-82) U/L Urine Color Urine Clarity (CLEAR) Urine pH (5.0-7.5) PH Ur Specific Ellerbe (1.002-1.030) Urine Protein (NEGATIVE) mg/dL Urine Glucose (UA) (NEGATIVE) mg/dL Urine Ketones (NEGATIVE) mg/dL Urine Occult Blood (NEGATIVE) Urine Nitrite (NEGATIVE) Urine Bilirubin (NEGATIVE) Urine Urobilinogen (NORMAL) E.U./dL Ur Leukocyte Esterase (NEGATIVE) Ur Microscopic Review Urine Culture Comments Assessment/Plan Problem List (1) Sepsis: Impression: Sepsis secondary to bowel perforation WBC has increased to 26.1 today VSS, pain is improved Continue Zosyn (2) Perforation of sigmoid colon due to diverticulitis: Impression: Vital signs, pain have improved overnight Per surgery, okay to advance to ice chips Continue NS at 100 Pain is improved, continuing IV push Dilaudid as needed
[2024-10-15] MEDS: ACETAMINOPHEN 500 MG TABLET PO SCH (13:23)
[2024-10-15 13:36] LABS: HCT - HEMATOCRIT 44.9 % (42.0-52.0); HGB - HEMOGLOBIN 15.1 g/dL (14.0-18.0); MEAN PLATELET VOLUME 8.7 fL (7.4-11.4); NRBC ABSOLUTE COUNT (AUTO) 0.00 x10^3/uL; NUCLEATED RED BLOOD CELLS AUTO 0.0 /100WBC; PLT - PLATELET COUNT 242 10^3/uL (130-450); RED CELL DISTRIBUTION WIDTH 11.9 % (12.0-15.0)
--- NOTE | 2024-10-15 15:19 | XRAY Report ---
PROCEDURE: XR Abdomen 2 V INDICATIONS: free air TECHNIQUE: 2 views of the abdomen were acquired. COMPARISON: None. FINDINGS: The frontal upright upper abdomen x-ray demonstrates a small amount of free gas under the left hemidiaphragm. The right hemidiaphragm is partially obscured from the image. No abnormally dilated bowel segments. IMPRESSION: Suspected free intraperitoneal gas in the abdomen. Results discussed with Dr. Medina 10/15/2024 at 15:09 Reviewed by: Don Melendez MD on 10/15/2024 3:18 PM PDT Approved by: Don Melendez MD on 10/15/2024 3:18 PM PDT Station ID: [id number]
--- NOTE | 2024-10-15 15:34 | PROVIDER PROGRESS NOTE ---
Progress Note Progress Note Progress Note: General Surgery Pre-op Note I have been following Wali's clinical course all day and although his abdomen remains soft and his leukocytosis has resolved, he is power press tender in the LLQ and now in the RUQ and he is diaphoretic. An upright KUB shows a large amount of intra-abdominal air under both hemidiaphragms. This is much different than what was seen on the CT scan last evening. I am of the opinion that Wali no longer has a contained sigmoid colon diverticular perforation and now requires exploratory laparotomy with colectomy and colostomy to manage his intra- abdominal infection with associated peritonitis. Labs: WBC 10.6; Hct 44.9/Hgb 15.1; Na 136; K 4.1; BUN 12; Cr 1.0; Glu 118 Consent: Wali has been counseled for the procedure (Exploratory laparotomy, colectomy, colostomy, under GETA), it's indications, risks, benefits and expected outcome. We specifically discussed risks associated with anesthesia, bleeding, infection, wound vac use, and injury to surrounding structures which may require additional surgery. We discussed the possible need for a blood transfusion with its risks and benefits. Wali understands the content of our discussion and requests that we proceed with the procedure as outlined. Wali's mother was present and agrees with my recommendation for operative intervention Carson Medina MD, [facility] General Surgery Service
--- NOTE | 2024-10-15 16:29 | ANESTHESIA PROCEDURE NOTE ---
Pre-Anesthesia VS, & Labs Diagnosis Surgical Diagnosis:: perforated viscus Procedure Procedure: exploratory laparotomy Vitals Vital Signs: Temp Pulse Resp BP Pulse Ox O2 Flow Rate 36.5 C 101 H 24 117/77 95 3 10/15/24 15:40 10/15/24 15:40 10/15/24 15:40 10/15/24 15:40 10/15/24 15:47 10/15/24 15:47 NPO NPO: >8 hours Lab Results Current Lab Results: Laboratory Tests 10/15/24 13:11: WBC 10.6, RBC 5.05, Hgb 15.1, Hct 44.9, MCV 88.9, MCH 29.9, MCHC 33.6, RDW 11.9 L, Plt Count 242, MPV 8.7, Neut # (Auto) 9.8 H, Lymph # (Auto) 0.5 L, [place] # (Auto) 0.3, Eos # (Auto) 0.0, Baso # (Auto) 0.0, Absolute Nucleated RBC 0.00, Nucleated RBC % 0.0 10/15/24 04:41: WBC 26.1 H, RBC 4.67 L, Hgb 14.2, Hct 40.9 L, MCV 87.6, MCH 30.4, MCHC 34.7, RDW 11.7 L, Plt Count 261, MPV 8.9, Neut # (Auto) Not Reportable, Lymph # (Auto) Not Reportable, [place] # (Auto) Not Reportable, Eos # (Auto) Not Reportable, Baso # (Auto) Not Reportable, Absolute Nucleated RBC Not Reportable, Total Counted 100, Band Neuts % (Manual) 26 H, Abnorm Lymph % (Manual) 0, Nucleated RBC % Not Reportable, Neutrophils # (Manual) 23.2 H, Lymphocytes # (Manual) 2.6, Monocytes # (Manual) 0.3, Eosinophils # (Manual) 0.0, Basophils # (Manual) 0.0, Differential Comment MANUAL DIFFERENTIAL, WBC Morphology NORMAL APPEARANCE, Platelet Estimate NORMAL (130-450,000), Platelet Morphology NORMAL APPEARANCE, RBC Morph Micro Appear NORMAL APPEARANCE, Sodium 136, Potassium 4.1, Chloride 101, Carbon Dioxide 27, Anion Gap 8.0, BUN 12, Creatinine 1.0, Estimated GFR (MDRD) 86 L, Glucose 118 H, Calcium 8.6 10/14/24 17:42: Lactic Acid 0.9 10/14/24 17:03: WBC 19.9 H, RBC 5.00, Hgb 15.0, Hct 43.8, MCV 87.6, MCH 30.0, MCHC 34.2, RDW 11.6 L, Plt Count 279, MPV 8.8, Neut # (Auto) 18.1 H, Lymph # (Auto) 0.5 L, [place] # (Auto) 1.2 H, Eos # (Auto) 0.0, Baso # (Auto) 0.0, Absolute Nucleated RBC 0.00, Nucleated RBC % 0.0, Sodium 132 L, Potassium 4.0, Chloride 97 L, Carbon Dioxide 28, Anion Gap 7.0, BUN 10, Creatinine 1.0, Estimated GFR (MDRD) 86 L, Glucose 119 H, Calcium 9.4, Total Bilirubin 1.4 H, AST 34, ALT 41, Alkaline Phosphatase 57, Total Protein 7.6, Albumin 4.9, Globulin 2.7, Albumin/Globulin Ratio 1.8, Lipase 43 10/15/24 13:11 10/15/24 04:41 Meds/Allgy Home Medications Ambulatory Orders Medication Instructions Recorded Confirmed esomeprazole magnesium 20 mg 20 mg PO DAILY 11/21/17 0 10/15/24 capsule,delayed release (Nexium 24HR) allopurinol 100 mg tablet 100 mg PO BID PRN gout 12/1710/14/24 mesalamine 1,000 mg rectal 1 g IA DAILY 12/18/2310/15 suppository trazodone 100 mg tablet 100 - 200 mg PO HS 12/18/23 10/15/24 albuterol sulfate 90 mcg/actuation 2 puff inhalation 6 XD PRN 05/04/24 10/15/24 aerosol inhaler (Proventil HFA) shortness of breath or wheezing #8.5 grams fluticasone propionate 45 2 puff inhalation BID #12 gr ams 05/04/24 10/15/24 mcg-salmeterol 21 mcg/actuation HFA inhaler (Advair HFA) armodafinil 150 mg tablet 150 - 300 mg PO DAILY PRN NO N 10/14/24 10/15/24 ADDERALL DAYS dextroamphetamine-amphetamine 20 10 - 20 mg PO Q3H PRN ADHD SYMPTOMS 10/15/24 10/15/24 mg tablet Allergies Allergies Allergy/AdvReac Type Severity Reaction Status Date / Time No Known Drug Allergies Allergy Verified 10/14/24 16:33 PFSH Active Problems All Active Problems Perforation of sigmoid colon due to diverticulitis (Acute) Diverticulitis (Acute) Sepsis (Acute) Bipolar II disorder (Acute) Attention-deficit hyperactivity disorder, unspecified type (Acute) Anxiety disorder, unspecified (Acute) Generalized anxiety disorder (Acute) Ankle tendinitis (Acute) Sprain of left foot (Acute) Left ankle sprain (Acute) Hand laceration (Acute) Ankle sprain (Acute) Narcotic-induced respiratory depression (Acute) Lactic acidosis (Acute) DARY (acute kidney injury) (Acute) Rhabdomyolysis (Acute) Alcohol intoxication (Acute) Opioid overdose (Acute) Overdose of drug (Acute) Social History Social History Smoking Status: Current every day smoker Do you dip or chew tobacco?: Yes Do you vape?: No Patient requests smoking cessation consult: No Initiate information on smoking cessation: No Smoking Status Details: jasmina guptastephanie Living arrangement: At home Living Condition: With family Relationship: Level: Independent Do you feel safe in your home environment?: Yes Suffered physical, verbal, emotional, or financial abuse?: No History of Abuse: No ETOH Use: Frequency: Daily Substance Use: cannabis (any form) Are you sexually active?: No POLST Patient has POLST: No Anesthesia Exam (Expanded) Exam General: Alert, Oriented x3 and Mild distress Dental: WNL Mouth Opening: Greater than 4 Fingerbreadths Neck Mobility: Normal Mallampati classification: II Thyromental Distance: greater than 6 cm Respiratory: Lungs clear and Decreased breath sounds Cardiovascular: Regular rate Exam Exam Vital Signs: Vital Signs x48h Temp Pulse Resp BP BP Pulse Ox O2 Flow Rate 10/15/24 15:47 95 3 10/15/24 15:40 36.5 C 101 H 24 117/77 86 L 10/15/24 12:14 99 18 92 3 10/15/24 12:10 37.2 C 105 H 129/76 83 L Plan Problem List (1) Sepsis: (2) Perforation of sigmoid colon due to diverticulitis: Plan Anesthesia Type: General Consent for Procedure(s) Verified and Reviewed: Yes Code Status: Attempt Resuscitation ASA Classification ASA classification: 3-Severe systemic disease Is this case an emergency?: Yes
[2024-10-15] MEDS ORDERED: LIDOCAINE 1%-EPI 1:100000 20 ML MDV ONE (19:49)
[2024-10-15] MEDS ORDERED: BUPIVACAINE 0.5% PF 10 ML VIAL ONE (19:49)
[2024-10-15] MEDS ORDERED: fentaNYL 100 MCG/2 ML VIAL ONE (20:06)
[2024-10-15] MEDS ORDERED: ROCURONIUM 50 MG/5 ML VIAL ONE ×2 (20:06→20:39)
[2024-10-15] MEDS ORDERED: LIDOCAINE-PF 2% 10 ML AMP SUBQ ONE (20:06)
[2024-10-15] MEDS ORDERED: PROPOFOL 200 MG/20 ML VIAL IVP ONE (20:06)
[2024-10-15] MEDS ORDERED: ONDANSETRON 4 MG/2 ML VIAL ONE ×3 (20:31→22:34)
[2024-10-15] MEDS ORDERED: DEXAMETHASONE 4 MG/ML VIAL ONE (20:31)
[2024-10-15] MEDS ORDERED: fentaNYL 100 MCG/2 ML VIAL IVP PRN (20:50)
[2024-10-15] MEDS ORDERED: ONDANSETRON 4 MG/2 ML VIAL IVP PRN (20:50)
[2024-10-15] MEDS ORDERED: ATROPINE ABBOJECT 1 MG/10 ML SYRINGE IVP PRN (20:50)
[2024-10-15] MEDS ORDERED: ePHEDrine 50 MG/ML VIAL IVP PRN (20:50)
[2024-10-15] MEDS ORDERED: NALOXONE 0.4 MG/ML VIAL IVP PRN (20:50)
[2024-10-15] MEDS ORDERED: MORPHINE 2 MG/ML CARPUJECT IVP PRN (20:50)
[2024-10-15] MEDS ORDERED: ROPIVACAINE 0.5% PF 20 ML VIAL ONE (21:39)
[2024-10-15] MEDS ORDERED: SUGAMMADEX 200 MG/2 ML VIAL IVP ONE (21:48)
--- NOTE | 2024-10-15 22:15 | OPERATIVE REPORT ---
Operative Report General Admit Date: 10/14/24 Procedure Data: Operation Date: 10/15/24 19:00 Proposed Procedures p Exploratory Laparotomy(Not Applicable) - Carson Medina MD Actual Procedures p Exploratory Laparotomy, colon resection, colostomy(Not Applicable) - Carson Medina MD Pre-Op Diagnosis: PERFORATED DIVERTICULITIS WITH PERITONITIS Anesthesia Type General Case Staff Anesthesia Provider: Nilam Mercedes Assisting Provider: Hussein Roa Case Times Procedure Start: 10/15/24 20:35 Procedure End: 10/15/24 21:57 Time out: 10/15/24 20:34 Other Other Information/Narrative: PROC DATE: 10/15/2024 PREOP DIAG: Peritonitis due to perforated sigmoid diverticulitis POSTOP DIAG: Same SURGEON: Carson Medina MD, FACS ASSISTANTS: Hussein Roa MD, FACS OPERATION: Sigmoid colectomy; End Descending Colostomy; Abdominal washout ANESTHESIA: General endotracheal. ESTIMATED BLOOD LOSS: 50 mL. DRAINS: Hall urinary catheter; 19F Channel drain SPECIMEN: Sigmoid colon, Anerobic and aerobic cultures COMPLICATIONS: None DESCRIPTION OF OPERATIVE FINDINGS: Purulent peritonitis with slight amount of food material. No fecal material present. Perforation mid sigmoid through a large diverticula. One interloop abscess. PROCEDURE: After consent for the procedure was obtained, the patient was brought to the operating room, where a surgical time out was performed indicating the patient and the procedure to be performed. In the supine position general endotracheal anesthesia was administered. A Hall catheter was placed and venous compression devices were placed on the lower extremities. The abdomen was clipped of hair, prepped with alcohol-free chloroprep and draped in a sterile fashion. A midline incision was used to gain exposure to the peritoneal cavity, which was explored and found to contain the above noted findings. A sigmoid colectomy with end descending colon colostomy was planned. This was first performed by detaching the inflammatory portion of the sigmoid from the left lateral wall, taking down the white line of Toldt down to the upper portion of the rectum. The left ureter was identified and protected throughout the procedure. The sigmoid colon was transected proximal to the perforation in an area of healthy colon using a ZULY stapling device. The mesentery to the sigmoid colon was then taken down with a LigaSure device. The distal sigmoid colon, where there were no diverticula and where the colon was healthy, was then transected with a Contour stapling device. The specimen was removed from the field. Two 2-0 Prolene sutures were used to german the edge of the distal sigmoid staple line. An end descending colostomy was then planned. The white line of Toldt was then incised proximally to the splenic flexure. This allowed mobilization of the descending colon such that it would emerge without tension through a LLQ stoma site. A wilton of skin was removed from the LLQ at the planned stoma site. Dissection through subcutaneous tissue was performed with electrocautery until the rectus fascia was identified. A cruciate incision was made in the rectus fascia and the rectus muscle fibers were split. The peritoneum was incised and the stomal opening was enlarged to three finger-breadths. The stapled end of the descending colon was brought through the stomal opening in the abdominal wall and secured in place with Servando clamps. Attention was directed to the upper abdomen. The abdomen and pelvis were irrigated with 5 liters of warm sterile saline. the irrigant was aspirated. A 19 F Diego channel drain was placed into the pelvis, brought out through a separate stab incision in the RLQ and secured to the skin with a 2-0 silk suture. The small bowel was then examined from the Ligament of Treitz to the cecum. A single interloop abscess was identified and drained. A search for made for sponges, packs, instruments and needles. None were found. The sponge, pack, instrument and needle count were relayed to me as being uzair ect. The omentum was used to cover the small bowel. The abdominal wall was then closed with a running double-stranded 0 PDS for the linea alba and guillermo for the skin. The ostomy was matured using interrupted 4-0 Vicryl sutures. An ostomy appliance was placed on the abdominal wall. A saline dampened rolled Kerlix gauze was placed into the midline wound, covered with and abd dressing and secured to the skin with tape. The patient was awakened from general anesthesia after the anesthesia team placed bilateral KATIE blocks and was brought to recovery with stable vital signs. The presence of an pizza hut assistant surgeon was necessary to provide exposure, tissue retraction, to assist in in suture control of vascular structures and to facilitate fascial and skin closure during various portions of the operative procedure.
[2024-10-15] MEDS: LACTATED RINGERS 1,000 ML IV SCH (22:24)
[2024-10-15] MEDS ORDERED: HYDROmorphone 0.5 MG/0.5 ML SYRINGE ONE ×2 (22:35→22:50)
[2024-10-15] MEDS: HYDROmorphone 0.5 MG/0.5 ML SYRINGE IVP PRN (22:36)
--- NOTE | 2024-10-16 00:43 | ANESTHESIA POST OP EVALUATION ---
Anesthesia Post Eval Post Anesthesia Eval Vitals: Last Vital Signs Temp 36.6 C 10/16/24 00:00 Pulse 94 10/16/24 00:00 Resp 18 10/16/24 00:00 BP 116/76 10/16/24 00:00 Pulse Ox 96 10/16/24 00:00 O2 Flow Rate 3 10/16/24 00:00 CV Function Including HR & BP: Stable Pain Control: Satisfactory Nausea & Vomiting: Negative Mental Status: Baseline Respiratory Status: Airway Patent Hydration Status: Satisfactory Anesthesia Complications: None
[2024-10-16] MEDS: LACTATED RINGERS 1,000 ML IV SCH (04:52)
[2024-10-16 06:13] LABS: BUN - BLOOD UREA NITROGEN 22.0 mg/dL (6-20); CARBON DIOXIDE - CO2 25.0 mmol/L (21-32); CREATININE 1.2 mg/dL (0.6-1.3); GFR - MDRD 69.0 (>89)
[2024-10-16 06:14] LABS: HCT - HEMATOCRIT 42.9 % (42.0-52.0); HGB - HEMOGLOBIN 14.0 g/dL (14.0-18.0); MEAN PLATELET VOLUME 9.4 fL (7.4-11.4); PLT - PLATELET COUNT 261 10^3/uL (130-450); RED CELL DISTRIBUTION WIDTH 11.9 % (12.0-15.0)
[2024-10-16] MEDS: BENZOCAINE/MENTHOL LOZENGE MM PRN (06:20)
[2024-10-16 06:26] LABS: ABNORMAL LYMPHS % (MANUAL) 0 %; BASOPHILS # (MANUAL) 0.0 10^3/uL (0-0.1); EOSINOPHILS # (MANUAL) 0.0 10^3/uL (0-0.7)
[2024-10-16] MEDS: FORMOTEROL FUMARATE NEB 20 MCG/2 ML INH SCH (07:12)
[2024-10-16] MEDS: BUDESONIDE 0.5 MG/2 ML NEB INH SCH (07:12)
[2024-10-16 07:43] LABS: BAND NEUTROPHILS % (MANUAL) 33 %; LYMPHOCYTES # (MANUAL) 0.5 10^3/uL (1.5-3.5); LYMPHOCYTES % (MANUAL) 1 %; METAMYELOCYTES % (MANUAL) 10 %; MONOCYTES # (MANUAL) 0.7 10^3/uL (0.0-1.0); MYELOCYTES % (MANUAL) 2 %; NEUTROPHILS # (MANUAL) 13.9 10^3/uL (1.5-6.6); REACTIVE LYMPHS % (MANUAL) 2 %
[2024-10-16 07:44] LABS: RBC MORPHOLOGY (MULTIPLE) 1+ ANISOCYTOSIS (NORMAL)
--- NOTE | 2024-10-16 07:49 | PROVIDER PROGRESS NOTE ---
Progress Note Progress Note Progress Note: General Surgery Progress Note Hospital Day # 3 - Peritonitis due to perforated sigmoid diverticulitis POD # 1, Sigmoid colectomy, end descending colostomy, abdominal washout, drain placement Code Status: Full ASSESSMENT: 1) [] PLAN: 1) [] <><><><><> PERTINENT INTERVAL ISSUES: [] S: [] OBJECTIVE: I/O: 5,347/2170 VS: BP 109/79; P 80; RR 18; T 36.8 EXAMINATION: MENTAL STATUS: AAO; Comfortable EYES: Pupils equal, round and reactive to light, sclera anicteric, EARS, NOSE, MOUTH, THROAT: Normal hearing, Oral mucous membranes moist and without lesions; NECK: No crepitus, lymphadenopathy, or thyromegaly LUNGS: Clear to auscultation without wheezing; No use of accessory muscles to breathe CARDIOVASCULAR: Heart-NSR without murmurs; ABD: Soft, non-tender, Incision []; [] BS EXTREMITIES: No clubbing, cyanosis, infections SKIN: Anicteric; No rashes, lesions, ulcerations LABS: WBC 17.1 ; H&H 114.0/42.0; PLT 261K; NA 135; K 4.6; Cr 1.2; Glu 159 CULTURES: Blood - NG after 1 day Peritoneal - pending IMAGING: None today ANTIMICROBIALS: Zosyn PAIN CONTROL: Dilaudid IV prn, Oxycodone PO prn, Ketorolac IV, Acetaminophen VTEP: Chemical: Enoxaparin, 40mg, SQ, QD Mechanical: LEATHA Medina MD, FACS General Surgery Service
--- NOTE | 2024-10-16 08:55 | PROVIDER PROGRESS NOTE ---
Progress Note Progress Note Progress Note: General Surgery Progress Note Hospital Day # 3 - Peritonitis due to perforated sigmoid diverticulitis POD # 1, Sigmoid colectomy, end descending colostomy, abdominal washout, drain placement Code Status: Full ASSESSMENT: 1) Clinically improved; Incisional discomfort only this morning. Breathing is easier PLAN: 1) Continue with sips and chips until later today. Will start clears at dinner 2) Abdominal binder - customize to fit around stoma 3) Wound care consult for ostomy teaching 4) Start BID wet to dry dressing changes 5) Continue IV at 150/hr until 1800, then switch to 125/hr 6) Discontinue iniguez 7) Sit at bedside and dangle 8) Continue IV antibiotics for at least 5 post-op days 9) Contine VTEP <><><><><> PERTINENT INTERVAL ISSUES: None S: Feels a bit better. No respiratory issues. Incisional pain controlled with medication and ice pack OBJECTIVE: I/O: 5,347/2170 VS: BP 109/79; P 80; RR 18; T 36.8 EXAMINATION: MENTAL STATUS: AAO; Comfortable EYES: Pupils equal, round and reactive to light, sclera anicteric, EARS, NOSE, MOUTH, THROAT: Normal hearing, Oral mucous membranes moist and without lesions; NECK: No crepitus, lymphadenopathy, or thyromegaly LUNGS: Clear to auscultation without wheezing; No use of accessory muscles to breathe CARDIOVASCULAR: Heart-NSR without murmurs; ABD: Soft, dressing dry, ostomy pink, few BS; Diego drain functional with red tinged serous fluid EXTREMITIES: No clubbing, cyanosis, infections SKIN: Anicteric; No rashes, lesions, ulcerations LABS: WBC 17.1 ; H&H 114.0/42.0; PLT 261K; NA 135; K 4.6; Cr 1.2; Glu 159 CULTURES: Blood - NG after 1 day Peritoneal - pending IMAGING: None today ANTIMICROBIALS: Zosyn PAIN CONTROL: Dilaudid IV prn, Oxycodone PO prn, Ketorolac IV, Acetaminophen VTEP: Chemical: Enoxaparin, 40mg, SQ, QD Mechanical: SCD Carson Medina MD, FACS General Surgery Service
[2024-10-16] MEDS ORDERED: FLUTICASONE PROPION SALMETEROL INH SCH (09:00)
[2024-10-16] MEDS ORDERED: [UNRECOGNIZED DRUG - OTHER] INH SCH (09:00)
[2024-10-16] MEDS: KETOROLAC 30 MG/ML VIAL IVP SCH (09:56)
--- NOTE | 2024-10-16 13:43 | PROVIDER PROGRESS NOTE ---
Subjective Prog Note Date Prog Note Date: 10/16/24 Subjective Pt reports feeling: Improved Current Medications Current Medications Current Medications: Current Medications Generic Name Dose Route Start Last Admin Trade Name Freq PRN Reason Stop Dose Admin Acetaminophen 1,000 mg 10/15/24 14:00 10/16/24 06:20 Acetaminophen 500 Mg Tablet PO 1,000 mg TID DANIEL Administration Albuterol 2.5 mg 10/15/24 23:36 Albuterol Neb 2.5 Mg/3 Ml INH RTQ4H PRN Wheezing Budesonide 0.5 mg 10/16/24 07:00 10/16/24 07:12 Budesonide 0.5 Mg/2 Ml Neb INH 0.5 mg RTBID DANIEL Administration Enoxaparin Sodium 40 mg 10/14/24 21:00 10/14/24 20:55 Enoxaparin 40 Mg/0.4 Ml Syringe SUBQ 40 mg HS DANIEL Administration Formoterol Fumarate 20 mcg 10/16/24 07:00 10/16/24 07:12 Formoterol Fumarate Neb 20 Mcg/2 Ml INH 20 mcg RTBID DANIEL Administration Hydromorphone HCl 2 mg 10/15/24 08:57 10/16/24 13:21 Hydromorphone 2 Mg/Ml Vial IVP 2 mg Q1H PRN Administration Severe Pain (Level 7-10) Lactated Ringer's 1,000 mls @ 150 mls/hr 10/16/24 01:30 10/16/24 11:46 Lr IV 150 mls/hr .Q6H40M DANIEL Administration Piperacillin Sod/Tazobactam 100 mls @ 25 mls/hr 10/16/24 16:00 Sod 4.5 gm/ Sodium Chloride IV Q8H DANIEL Ketorolac Tromethamine 30 mg 10/16/24 10:00 10/16/24 09:56 Ketorolac 30 Mg/Ml Vial IVP 10/17/24 10:01 30 mg Q6H DANIEL Administration Lorazepam 0.5 mg 10/14/24 20:21 10/15/24 19:02 Lorazepam 2 Mg/Ml Vial IVP 0.5 mg Q2H PRN Administration Anxiety Nicotine 1 patch 10/14/24 21:00 10/14/24 20:54 Nicotine 21 Mg Patch TOP 1 patch HS DANIEL Administration Ondansetron HCl 4 mg 10/14/24 20:21 10/16/24 09:56 Ondansetron 4 Mg/2 Ml Vial IVP 4 mg Q6HR PRN Administration Nausea / Vomiting Sodium Chloride 10 ml 10/14/24 20:21 Sodium Chloride Flush 0.9% 10 Ml Syringe IVP PRN PRN NEEDED PER PROVIDER ORDERS Sodium Chloride 10 ml 10/15/24 01:00 10/16/24 10:07 Sodium Chloride Flush 0.9% 10 Ml Syringe IVP Not Given 0100,0900,1700 DANIEL Throat Lozenges 1 lozenge 10/16/24 05:25 10/16/24 06:20 Benzocaine/Menthol Lozenge MM 1 lozenge Q2HR PRN Administration Throat pain Objective Vital Signs/Intake & Output Reviewed Vital Signs: Yes Vital Signs: Vital Signs x48h Temp Pulse Pulse Resp BP Pulse Ox O2 Flow Rate 10/16/24 13:34 36.4 C L 97 20 114/76 92 2 10/16/24 07:54 36.4 C L 90 18 111/68 94 3 10/16/24 07:16 3 10/16/24 07:15 80 18 Intake & Output: Intake & Output 10/13/24 10/14/24 10/15/24 10/16/24 23:59 23:59 23:59 23:59 Intake Total 3801.94 / 3801.94 4700 / 4700 1986 Output Total 400 / 400 1900 / 1900 1270 / 1270 Balance 3401.94 / 3401.94 2800 / 2800 717 / 717 Weight (kg) 120 kg Objective General Appearance: positive Alert and Anxious Eyes Bilateral: positive Normal inspection Neck: positive Nml inspection Respiratory: positive Chest non-tender Cardiovascular: positive Regular rate & rhythm Abdomen: positive Tenderness and Other (Surgical dressing in place); negative Nml bowel sounds (Hypoactive) Skin: positive Color nml Extremities: positive Non-tender Neurologic/Psychiatric: positive Oriented x3 Lab Results 10/16/24 05:19 10/16/24 05:19 Other Labs: Lab Results x24hrs 10/16/24 10/15/24 10/15/24 Range/Units 05:19 15:37 13:11 WBC 17.1 H 10.6 (4.8-10.8) x10^3/uL RBC 4.72 5.05 (4.70-6.10) 10^6/uL Hgb 14.0 15.1 (14.0-18.0) g/dL Hct 42.9 44.9 (42.0-52.0) % MCV 90.9 88.9 (80.0-94.0) fL MCH 29.7 29.9 (27.0-31.0) pg MCHC 32.6 33.6 (32.0-36.0) g/dL RDW 11.9 L 11.9 L (12.0-15.0) % Plt Count 261 242 (130-450) 10^3/uL MPV 9.4 8.7 (7.4-11.4) fL Neut # (Auto) TELEPHOTO ENGINEER 9.8 H (1.5-6.6) 10^3/uL Lymph # (Auto) TELEPHOTO ENGINEER 0.5 L (1.5-3.5) 10^3/uL [place] # (Auto) TELEPHOTO ENGINEER 0.3 (0.0-1.0) 10^3/uL Eos # (Auto) TELEPHOTO ENGINEER 0.0 (0.0-0.7) 10^3/uL Baso # (Auto) TELEPHOTO ENGINEER 0.0 (0.0-0.1) 10^3/uL Absolute Nucleated RBC TELEPHOTO ENGINEER 0.00 x10^3/uL Total Counted 100 Band Neuts % (Manual) 33 H (0 - 10) % Reactive Lymphs % (Man) 2 % Abnorm Lymph % (Manual) 0 % Metamyelocytes % 10 H ( - 0) % Myelocytes % 2 H ( - 0) % Nucleated RBC % TELEPHOTO ENGINEER 0.0 /100WBC Neutrophils # (Manual) 13.9 H (1.5-6.6) 10^3/uL Lymphocytes # (Manual) 0.5 L (1.5-3.5) 10^3/uL Monocytes # (Manual) 0.7 (0.0-1.0) 10^3/uL Eosinophils # (Manual) 0.0 (0-0.7) 10^3/uL Basophils # (Manual) 0.0 (0-0.1) 10^3/uL Differential Comment MANUAL DIFFERENTIAL RBC Morph Micro Appear 1+ ANISOCYTOSIS (NORMAL) Sodium 135 (135-145) mmol/L Potassium 4.6 H (3.5-4.5) mmol/L Chloride 102 (101-111) mmol/L Carbon Dioxide 25 (21-32) mmol/L Anion Gap 8.0 (6-13) BUN 22 H (6-20) mg/dL Creatinine 1.2 (0.6-1.3) mg/dL Estimated GFR (MDRD) 69 L (>89) Glucose 159 H (74-104) mg/dL Calcium 8.7 (8.5-10.3) mg/dL Blood Type O POSITIVE Blood Type Recheck O POSITIVE Antibody Screen NEGATIVE Crossmatch IS Only See Detail Assessment/Plan Problem List (1) Sepsis: Impression: Sepsis secondary to bowel perforation Blood cultures in progress WBC 17.1 today Continue Zosyn, While monitoring renal function with daily BMP Manage bowel Perforation as below (2) Perforation of sigmoid colon due to diverticulitis: Impression: Last night, patient went to OR for ex lap with colon resection and colostomy. He is now recovering, surgical dressing in place. He will need to discharge with wound VAC on his abdominal incision. VSS. N.p.o. until return of bowel function. Discussed with surgeon in person
[2024-10-16] MEDS: PIPERACILLIN/TAZOBACTAM 4.5 GM in SODIUM CHLORIDE 0.9% MINIBAG 100 ML IV SCH (16:14)
--- NOTE | 2024-10-16 17:11 | PROVIDER PROGRESS NOTE ---
Progress Note Progress Note Progress Note: General Surgery Progress Note S: Feels better; iniguez out; tolerating sips and chips and will start clears tonight. Would like to ambulate a bit O: VSS afeb; Lungs - clear; Heart - slight tachycardia; Abd - Abdominal binder in place; dressing dry; ostomy pink and with small amount of fluid in the pouch; Diego drain with SS fluid; Midline dressing dry. UOP 1,000 last shift A: Progressing well; No immediate post-op complications P: Decrease IV fluids to 100 ml/hr; Ambulate; Change dressing tonight and plan for wound vac tomorrow. Carson Medina MD, FACS General Surgery Service
--- NOTE | 2024-10-17 07:39 | PROVIDER PROGRESS NOTE ---
Progress Note Progress Note Progress Note: General Surgery Progress Note Hospital Day # 4 - Peritonitis due to perforated sigmoid diverticulitis POD # 2, Sigmoid colectomy, end descending colostomy, abdominal washout, drain placement Code Status: Full ASSESSMENT: 1) Clinically improved; Ambulating; Unable to void; Tolerating clears 2) Urinary retention PLAN: 1) Continue clears until there is ostomy activity 2) Continue BID wet to dry dressing changes until wound vac equipment becomes available 3) Continue IV at 100/hr until taking full liquid diet 4) Sit at bedside and dangle; ambulate with assistance 5) Continue IV antibiotics for at least 5 post-op days 6) Contine VTEP <><><><><> PERTINENT INTERVAL ISSUES: Urinary retention - iniguez re-inserted per protocol S: Feels better. No respiratory issues. Incisional pain controlled with medication; Unable to void; No ostomy activity yet OBJECTIVE: I/O: 3920/2125 VS: BP 154/88; P 81; RR 12; T 36.9 EXAMINATION: MENTAL STATUS: AAO; Comfortable EARS, NOSE, MOUTH, THROAT: Normal hearing, Oral mucous membranes moist and without lesions; NECK: No crepitus, lymphadenopathy, or thyromegaly LUNGS: Clear to auscultation without wheezing; No use of accessory muscles to breathe CARDIOVASCULAR: Heart-NSR without murmurs; ABD: Soft, dressing dry, ostomy pink, few BS; Diego drain functional with red tinged serous fluid EXTREMITIES: No clubbing, cyanosis, infections SKIN: Anicteric; No rashes, lesions, ulcerations LABS: Pending CULTURES: Blood - NG after 2 day Peritoneal - pending IMAGING: None today ANTIMICROBIALS: Zosyn (Day 3) PAIN CONTROL: Dilaudid IV prn, Oxycodone PO prn, Ketorolac IV, Acetaminophen VTEP: Chemical: Enoxaparin, 40mg, SQ, QD Mechanical: SCD Carson Medina MD, FACS General Surgery Service
[2024-10-17 08:39] LABS: HCT - HEMATOCRIT 35.5 % (42.0-52.0); HGB - HEMOGLOBIN 12.0 g/dL (14.0-18.0); MEAN PLATELET VOLUME 9.3 fL (7.4-11.4); PLT - PLATELET COUNT 270.0 10^3/uL (130-450); RED CELL DISTRIBUTION WIDTH 12.1 % (12.0-15.0)
[2024-10-17 08:55] LABS: BUN - BLOOD UREA NITROGEN 25.0 mg/dL (6-20); CARBON DIOXIDE - CO2 30.0 mmol/L (21-32); CREATININE 1.0 mg/dL (0.6-1.3); GFR - MDRD 86.0 (>89)
[2024-10-17] MEDS: CALCIUM CARBONATE CHEW 500 MG TABLET PO PRN (12:05)
--- NOTE | 2024-10-17 12:37 | PROVIDER PROGRESS NOTE ---
Subjective Prog Note Date Prog Note Date: 10/17/24 Subjective Pt reports feeling: No change Current Medications Current Medications Current Medications: Current Medications Generic Name Dose Route Start Last Admin Trade Name Freq PRN Reason Stop Dose Admin Acetaminophen 1,000 mg 10/15/24 14:00 10/17/24 06:06 Acetaminophen 500 Mg Tablet PO 1,000 mg TID DANIEL Administration Albuterol 2.5 mg 10/15/24 23:36 Albuterol Neb 2.5 Mg/3 Ml INH RTQ4H PRN Wheezing Budesonide 0.5 mg 10/16/24 07:00 10/17/24 07:30 Budesonide 0.5 Mg/2 Ml Neb INH 0.5 mg RTBID DANIEL Administration Calcium Carbonate/Glycine 500 mg 10/17/24 11:57 10/17/24 12:05 Calcium Carbonate Chew 500 Mg Tablet PO 500 mg BID PRN Administration Heartburn Enoxaparin Sodium 40 mg 10/14/24 21:00 10/16/24 20:23 Enoxaparin 40 Mg/0.4 Ml Syringe SUBQ 40 mg HS DANIEL Administration Formoterol Fumarate 20 mcg 10/16/24 07:00 10/17/24 07:30 Formoterol Fumarate Neb 20 Mcg/2 Ml INH 20 mcg RTBID DANIEL Administration Hydromorphone HCl 2 mg 10/15/24 08:57 10/17/24 11:35 Hydromorphone 2 Mg/Ml Vial IVP 2 mg Q1H PRN Administration Severe Pain (Level 7-10) Hydromorphone HCl 2 mg 10/17/24 11:58 Hydromorphone 2 Mg Tablet PO Q6HR PRN Severe Pain (Level 7-10) Lactated Ringer's 1,000 mls @ 100 mls/hr 10/16/24 01:30 10/17/24 11:54 Lr IV 100 mls/hr .Q10H DANIEL Administration Piperacillin Sod/Tazobactam 100 mls @ 25 mls/hr 10/16/24 16:00 10/17/24 12:34 Sod 4.5 gm/ Sodium Chloride IV Infused Q8H DANIEL Infusion Lorazepam 0.5 mg 10/14/24 20:21 10/15/24 19:02 Lorazepam 2 Mg/Ml Vial IVP 0.5 mg Q2H PRN Administration Anxiety Nicotine 1 patch 10/14/24 21:00 10/16/24 16:13 Nicotine 21 Mg Patch TOP 1 patch HS DANIEL Administration Ondansetron HCl 4 mg 10/14/24 20:21 10/16/24 18:44 Ondansetron 4 Mg/2 Ml Vial IVP 4 mg Q6HR PRN Administration Nausea / Vomiting Pantoprazole Sodium 40 mg 10/17/24 12:00 Pantoprazole 40 Mg Tablet PO QDAC DANIEL Sodium Chloride 10 ml 10/14/24 20:21 Sodium Chloride Flush 0.9% 10 Ml Syringe IVP PRN PRN NEEDED PER PROVIDER ORDERS Sodium Chloride 10 ml 10/15/24 01:00 10/17/24 07:50 Sodium Chloride Flush 0.9% 10 Ml Syringe IVP Not Given 0100,0900,1700 DANIEL Throat Lozenges 1 lozenge 10/16/24 05:25 10/16/24 06:20 Benzocaine/Menthol Lozenge MM 1 lozenge Q2HR PRN Administration Throat pain Objective Vital Signs/Intake & Output Reviewed Vital Signs: Yes Vital Signs: Vital Signs x48h Pulse Resp O2 Flow Rate 10/17/24 07:32 2 10/17/24 07:32 81 12 2 Intake & Output: Intake & Output 10/14/24 10/15/24 10/16/24 10/17/24 23:59 23:59 23:59 23:59 Intake Total 3801.94 / 3801.94 4700 / 4700 3567 / 3567 2200 / 2200 Output Total 400 / 400 1900 / 1900 2090 / 2090 385 / 385 Balance 3401.94 / 3401.94 2800 / 2800 1477 / 1477 1815 / 1815 Weight (kg) 120 kg Objective General Appearance: positive Alert and Anxious Eyes Bilateral: positive Normal inspection Neck: positive Nml inspection Respiratory: positive Chest non-tender Cardiovascular: positive Regular rate & rhythm Abdomen: positive Nml bowel sounds, Tenderness and Other (Surgical dressing in place, ostomy) Skin: positive Color nml Extremities: positive Non-tender Neurologic/Psychiatric: positive Oriented x3 Lab Results 10/17/24 08:17 10/17/24 08:17 Other Labs: Lab Results x24hrs 10/17/24 Range/Units 08:17 WBC 16.7 H (4.8-10.8) x10^3/uL RBC 3.96 L (4.70-6.10) 10^6/uL Hgb 12.0 L (14.0-18.0) g/dL Hct 35.5 L (42.0-52.0) % MCV 89.6 (80.0-94.0) fL MCH 30.3 (27.0-31.0) pg MCHC 33.8 (32.0-36.0) g/dL RDW 12.1 (12.0-15.0) % Plt Count 270 (130-450) 10^3/uL MPV 9.3 (7.4-11.4) fL Sodium 136 (135-145) mmol/L Potassium 4.2 (3.5-4.5) mmol/L Chloride 102 (101-111) mmol/L Carbon Dioxide 30 (21-32) mmol/L Anion Gap 4.0 L (6-13) BUN 25 H (6-20) mg/dL Creatinine 1.0 (0.6-1.3) mg/dL Estimated GFR (MDRD) 86 L (>89) Glucose 151 H (74-104) mg/dL Calcium 9.1 (8.5-10.3) mg/dL Assessment/Plan Problem List (1) Sepsis: Impression: Sepsis secondary to bowel perforation Blood cultures in progress WBC 16.7 today Continue Zosyn, While monitoring renal function with daily BMP Manage bowel Perforation as below (2) Perforation of sigmoid colon due to diverticulitis: Impression: OR on 10/15 for ex lap with colon resection and colostomy Wet-to-dry dressing in place Working with nursing to place wound VAC Wound VAC at discharge Advance to clear liquid diet Passing flatus, no bowel movement yet Continue pain management with as needed IV Dilaudid. I have also added p.o. Dilaudid
[2024-10-17] MEDS: PANTOPRAZOLE 40 MG TABLET PO SCH (12:39)
--- NOTE | 2024-10-17 15:48 | PROVIDER PROGRESS NOTE ---
Progress Note Progress Note Progress Note: General Surgery Progress Note Wali feels well. He continues to tolerate his clear liquid diet. He seems a bit sedated from the IV dilaudid. He remains afebrile with normal VS. There has been no output from the ostomy as of yet. The appliance is removed and the stoma appears healthy. A fresh appliance of smaller dimensions was placed to facilitate placement of the wound vac. Using a large VAC Pe[place] and [place] dressing, the wound was covered and sealed. I set the vacuum to -125. No leaks were encountered. The patient tolerated the vac placement well. Since Wali is tolerating PO intake, I have added Oxycodone to his post-op pain regimen and the IV dilaudid will be used for breakthrough pain. i will also begin oral Tylenol, Ibuprofen, and Gabapentin. Carson Medina MD, [facility] General Surgery Service
[2024-10-17] MEDS: oxyCODONE 5 MG TABLET PO PRN (17:08)
[2024-10-17] MEDS: ACETAMINOPHEN 325 MG TABLET PO SCH (17:08)
[2024-10-17] MEDS: IBUPROFEN 600 MG TABLET PO SCH (17:08)
[2024-10-17] MEDS: GABAPENTIN 100 MG CAPSULE PO SCH (21:30)
[2024-10-18] MEDS: HYDROmorphone 1 MG/ML CARPUJECT IVP SCH (05:20)
[2024-10-18 05:58] LABS: HCT - HEMATOCRIT 38.2 % (42.0-52.0); HGB - HEMOGLOBIN 12.4 g/dL (14.0-18.0); MEAN PLATELET VOLUME 9.2 fL (7.4-11.4); NRBC ABSOLUTE COUNT (AUTO) 0.00 x10^3/uL; NUCLEATED RED BLOOD CELLS AUTO 0.0 /100WBC; PLT - PLATELET COUNT 313 10^3/uL (130-450); RED CELL DISTRIBUTION WIDTH 12.2 % (12.0-15.0)
[2024-10-18 06:12] LABS: BUN - BLOOD UREA NITROGEN 23.0 mg/dL (6-20); CARBON DIOXIDE - CO2 33.0 mmol/L (21-32); CREATININE 1.0 mg/dL (0.6-1.3); GFR - MDRD 86.0 (>89)
--- NOTE | 2024-10-18 06:35 | PROVIDER PROGRESS NOTE ---
Progress Note Progress Note Progress Note: General Surgery Progress Note Hospital Day # 5 - Peritonitis due to perforated sigmoid diverticulitis POD # 3, Sigmoid colectomy, end descending colostomy, abdominal washout, drain placement Code Status: Full ASSESSMENT: 1) Infection: Source control seems to have been achieved although persistent leukocytosis is of concern; No evidence of wound infection. Diego drain with serous fluid 2) Urinary retention -iniguez in place. Consider removal later today or tomorrow 3) Back discomfort - may be muscle spasm 4) Singletus - if persistent need to consider the development of a sub-phrenic abscess 5) Pain control - Restart Dilaudid but at lower dose to avoid over-sedation 6) Volume status - 10 liters ahead since admission PLAN: 1) Continue clears until there is ostomy activity 2) Wound vac change tomorrow 3) Decrease IV to 25 ml/hr; Lasix 20 mg IV x 1 4) Sit at bedside and dangle; ambulate with assistance 5) Continue IV antibiotics for at least 5 post-op days 6) Contine VTEP 7) Add Robaxin for back spasms <><><><><> PERTINENT INTERVAL ISSUES: Pain control an issue last night. S: Pain under better control with the IV Dilaudid (The oral Dilaudid was not effective). Occasional singletus (hiccups) OBJECTIVE: I/O: 3880/1680; MARTÍNEZ 40 serosanguinous last shift; +10 liters since admission VS: BP 139/92; P 92; RR 20; T 36.6 EXAMINATION: MENTAL STATUS: AAO; A bit drowsy from the IV Dilaudid EARS, NOSE, MOUTH, THROAT: Normal hearing, Oral mucous membranes moist and without lesions; NECK: No crepitus, lymphadenopathy, or thyromegaly LUNGS: Clear to auscultation without wheezing; No use of accessory muscles to breathe CARDIOVASCULAR: Heart-NSR without murmurs; ABD: Soft, vac dressing secure and functional, ostomy pink, few BS; Diego drain functional with red tinged serous fluid EXTREMITIES: No clubbing, cyanosis, infections SKIN: Anicteric; No rashes, lesions, ulcerations LABS: WBC 16.9; H&H 12.4/38.2; Plt 313k; Na 137; K 3.9; BUN 23; Cr 1.0; Glu 104 CULTURES: Blood - NG after 3 day Peritoneal - pending IMAGING: None today ANTIMICROBIALS: Zosyn (Day 4) PAIN CONTROL: Dilaudid IV prn, Oxycodone PO prn, Ketorolac IV, Acetaminophen VTEP: Chemical: Enoxaparin, 40mg, SQ, QD Mechanical: SCD Carson Medina MD, FACS General Surgery Service
[2024-10-18] MEDS: FUROSEMIDE 20 MG/2 ML VIAL IVP ONE (08:35)
[2024-10-18] MEDS: HYDROmorphone 0.5 MG/0.5 ML SYRINGE IVP PRN (08:36)
--- NOTE | 2024-10-18 12:34 | PROVIDER PROGRESS NOTE ---
Subjective Prog Note Date Prog Note Date: 10/18/24 Subjective Pt reports feeling: No change Subjective: Still reporting severe pain. However, patient was asleep at start of my interview Current Medications Current Medications Current Medications: Current Medications Generic Name Dose Route Start Last Admin Trade Name Freq PRN Reason Stop Dose Admin Acetaminophen 650 mg 10/17/24 18:00 10/18/24 06:13 Acetaminophen 325 Mg Tablet PO 650 mg Q6HR DANIEL Administration Albuterol 2.5 mg 10/15/24 23:36 Albuterol Neb 2.5 Mg/3 Ml INH RTQ4H PRN Wheezing Budesonide 0.5 mg 10/16/24 07:00 10/18/24 05:29 Budesonide 0.5 Mg/2 Ml Neb INH 0.5 mg RTBID DANIEL Administration Calcium Carbonate/Glycine 500 mg 10/17/24 11:57 10/17/24 12:05 Calcium Carbonate Chew 500 Mg Tablet PO 500 mg BID PRN Administration Heartburn Enoxaparin Sodium 40 mg 10/14/24 21:00 10/17/24 21:28 Enoxaparin 40 Mg/0.4 Ml Syringe SUBQ 40 mg HS DANIEL Administration Formoterol Fumarate 20 mcg 10/16/24 07:00 10/18/24 05:29 Formoterol Fumarate Neb 20 Mcg/2 Ml INH 20 mcg RTBID DANIEL Administration Gabapentin 300 mg 10/18/24 12:00 Gabapentin 300 Mg Capsule PO TID DANIEL Hydromorphone HCl 0.5 mg 10/18/24 06:28 10/18/24 11:14 Hydromorphone 0.5 Mg/0.5 Ml Syringe IVP 0.5 mg Q3HR PRN Administration Severe Pain (Level 7-10) Lactated Ringer's 1,000 mls @ 100 mls/hr 10/16/24 01:30 10/18/24 06:49 Lr IV 25 mls/hr .Q10H DANIEL Infusion Piperacillin Sod/Tazobactam 100 mls @ 25 mls/hr 10/16/24 16:00 10/18/24 08:36 Sod 4.5 gm/ Sodium Chloride IV 25 mls/hr Q8H DANIEL Administration Ibuprofen 600 mg 10/17/24 18:00 10/18/24 06:13 Ibuprofen 600 Mg Tablet PO 600 mg Q6HR DANIEL Administration Lorazepam 0.5 mg 10/14/24 20:21 10/18/24 08:35 Lorazepam 2 Mg/Ml Vial IVP 0.5 mg Q2H PRN Administration Anxiety Methocarbamol 500 mg 10/18/24 12:00 Methocarbamol 500 Mg Tablet PO Q6HR DANIEL Nicotine 1 patch 10/14/24 21:00 10/17/24 21:28 Nicotine 21 Mg Patch TOP 1 patch HS DANIEL Administration Ondansetron HCl 4 mg 10/14/24 20:21 10/17/24 21:29 Ondansetron 4 Mg/2 Ml Vial IVP 4 mg Q6HR PRN Administration Nausea / Vomiting Oxycodone HCl 7.5 mg 10/18/24 12:00 Oxycodone 5 Mg Tablet PO Q4HR DANIEL Pantoprazole Sodium 40 mg 10/17/24 12:00 10/18/24 06:13 Pantoprazole 40 Mg Tablet PO 40 mg QDAC DANIEL Administration Sodium Chloride 10 ml 10/14/24 20:21 Sodium Chloride Flush 0.9% 10 Ml Syringe IVP PRN PRN NEEDED PER PROVIDER ORDERS Sodium Chloride 10 ml 10/15/24 01:00 10/18/24 08:40 Sodium Chloride Flush 0.9% 10 Ml Syringe IVP 10 ml 0100,0900,1700 DANIEL Administration Throat Lozenges 1 lozenge 10/16/24 05:25 10/16/24 06:20 Benzocaine/Menthol Lozenge MM 1 lozenge Q2HR PRN Administration Throat pain Objective Vital Signs/Intake & Output Reviewed Vital Signs: Yes Vital Signs: Vital Signs x48h Temp Pulse Pulse Resp BP Pulse Ox O2 Flow Rate 10/18/24 08:39 36.6 C 92 18 156/101 H 91 L 3 10/18/24 05:30 36.6 C 20 139/92 H 92 3 10/18/24 05:29 3 10/18/24 05:29 88 24 3 Intake & Output: Intake & Output 10/15/24 10/16/24 10/17/24 10/18/24 23:59 23:59 23:59 23:59 Intake Total 4700 / 4700 3567 / 3567 4880 / 4880 980 / 980 Output Total 1900 / 1900 2090 / 2090 1520 / 1520 535 / 535 Balance 2800 / 2800 1477 / 1477 3360 / 3360 445 / 445 Objective General Appearance: positive Alert Eyes Bilateral: positive Normal inspection Neck: positive Nml inspection Respiratory: positive Chest non-tender Cardiovascular: positive Regular rate & rhythm Abdomen: positive Nml bowel sounds, Tenderness and Other (Surgical dressing in place, ostomy, Drain) Skin: positive Color nml Extremities: positive Non-tender Neurologic/Psychiatric: positive Oriented x3 Lab Results 10/18/24 05:11 10/18/24 05:11 Other Labs: Lab Results x24hrs 10/18/24 Range/Units 05:11 WBC 16.9 H (4.8-10.8) x10^3/uL RBC 4.17 L (4.70-6.10) 10^6/uL Hgb 12.4 L (14.0-18.0) g/dL Hct 38.2 L (42.0-52.0) % MCV 91.6 (80.0-94.0) fL MCH 29.7 (27.0-31.0) pg MCHC 32.5 (32.0-36.0) g/dL RDW 12.2 (12.0-15.0) % Plt Count 313 (130-450) 10^3/uL MPV 9.2 (7.4-11.4) fL Neut # (Auto) 14.6 H (1.5-6.6) 10^3/uL Lymph # (Auto) 1.0 L (1.5-3.5) 10^3/uL [place] # (Auto) 0.9 (0.0-1.0) 10^3/uL Eos # (Auto) 0.2 (0.0-0.7) 10^3/uL Baso # (Auto) 0.1 (0.0-0.1) 10^3/uL Absolute Nucleated RBC 0.00 x10^3/uL Nucleated RBC % 0.0 /100WBC Sodium 137 (135-145) mmol/L Potassium 3.9 (3.5-4.5) mmol/L Chloride 99 L (101-111) mmol/L Carbon Dioxide 33 H (21-32) mmol/L Anion Gap 5.0 L (6-13) BUN 23 H (6-20) mg/dL Creatinine 1.0 (0.6-1.3) mg/dL Estimated GFR (MDRD) 86 L (>89) Glucose 104 (74-104) mg/dL Calcium 8.9 (8.5-10.3) mg/dL Assessment/Plan Problem List (1) Sepsis: Impression: Sepsis secondary to bowel perforation Blood cultures in progress WBC 16.9 today Continue Zosyn, While monitoring renal function with daily BMP Manage bowel Perforation as below (2) Perforation of sigmoid colon due to diverticulitis: Impression: OR on 10/15 for ex lap with colon resection and colostomy Wet-to-dry dressing in place Working with nursing to place wound VAC Wound VAC at discharge Continue clear liquid diet until there is stool output in ostomy Passing flatus, no bowel movement yet Managing pain in conjunction with general surgery Dose of IV Dilaudid has been reduced. He has been started on oxycodone 7.5 mg. I have changed his oxycodone to scheduled and have increased the dose of his gabapentin. Continue 0.5 mg Dilaudid IV
[2024-10-18] MEDS: GABAPENTIN 300 MG CAPSULE PO SCH (12:48)
[2024-10-18] MEDS: oxyCODONE 5 MG TABLET PO SCH (13:07)
[2024-10-18] MEDS: PROCHLORPERAZINE 10 MG/2 ML VIAL IVP PRN (14:51)
--- NOTE | 2024-10-18 15:27 | PROVIDER PROGRESS NOTE ---
Progress Note Progress Note Progress Note: General Surgery Progress Note S: Patient with abdominal bloating and now poor appetite. O: VSS, afeb; Abdomen is distended; Midline dressing intact; Ostomy pink without stool or flatus; Diego SS output KUB - distended stomach and small bowel consistent with ileus A: Post op ileus P: NGT to LIS; NPO except sips and chips; IV to maintenance fluids Carson Medina MD, FACS General Surgery Service
--- NOTE | 2024-10-18 15:34 | XRAY Report ---
PROCEDURE: XR Abdomen 1 V INDICATIONS: ? post-op ileus TECHNIQUE: One view of the abdomen acquired. COMPARISON: 10/15/2024 FINDINGS: Surgical changes and devices: None. Bowel: Gaseous prominence of small bowel can be seen, measuring up to 2.87 m. Mild gaseous prominence of the colon can be seen. Soft tissues: No suspicious abdominal calcifications. Visualized solid organ contours appear normal in size. Bones: No suspicious bony lesions. IMPRESSION: Gaseous prominence of the small bowel can be seen, without kimberly dilatation, with additional mild gaseous prominence of the colon. The imaging appearance is consistent with postoperative ileus. Reviewed by: Yimi Patricio MD on 10/18/2024 2:32 PM [facility] Approved by: Yimi Patricio MD on 10/18/2024 2:32 PM [facility] Station ID: [id number]
--- NOTE | 2024-10-18 17:04 | XRAY Report ---
PROCEDURE: XR Chest for Line Placement INDICATIONS: NGT TECHNIQUE: One view of the chest was acquired. COMPARISON: Plain film earlier in the day. 10/14/2024 FINDINGS: Surgical changes and devices: A gastric tube is seen, which is coiled within the stomach, with the tip at the fundus of the stomach. Lungs and pleura: An incomplete inspiratory result is noted, with low lung volumes and crowding of the vascular markings. No focal infiltrates are seen. No large pneumothorax or large pleural effusion can be seen. Generalized interstitial prominence can be seen. Mediastinum: Mediastinal contours appear normal. Heart size is normal. Bones and chest wall: No suspicious bony lesions. Overlying soft tissues appear unremarkable. IMPRESSION: The tip of the gastric tube can be seen at the fundus of the stomach. Low lung volumes, with generalized pulmonary interstitial prominence. Reviewed by: Yimi Patricio MD on 10/18/2024 4:03 PM [facility] Approved by: Yimi Patricio MD on 10/18/2024 4:03 PM [facility] Station ID: [id number]
[2024-10-18] MEDS ORDERED: PHENOL THROAT SPRAY 177 ML MM PRN (23:03)
[2024-10-19 05:36] LABS: HCT - HEMATOCRIT 37.2 % (42.0-52.0); HGB - HEMOGLOBIN 12.5 g/dL (14.0-18.0); MEAN PLATELET VOLUME 8.9 fL (7.4-11.4); NRBC ABSOLUTE COUNT (AUTO) 0.00 x10^3/uL; NUCLEATED RED BLOOD CELLS AUTO 0.0 /100WBC; PLT - PLATELET COUNT 291 10^3/uL (130-450); RED CELL DISTRIBUTION WIDTH 12.8 % (12.0-15.0)
[2024-10-19 05:55] LABS: BUN - BLOOD UREA NITROGEN 23.0 mg/dL (6-20); CARBON DIOXIDE - CO2 30.0 mmol/L (21-32); CREATININE 0.7 mg/dL (0.6-1.3); GFR - MDRD 129.0 (>89)
[2024-10-19 06:16] LABS: PLATELET ESTIMATE, MANUAL NORMAL (130-450,000) (NORMAL); PLATELET MORPHOLOGY NORMAL APPEARANCE (NORMAL); RBC MORPHOLOGY (MULTIPLE) NORMAL APPEARANCE (NORMAL); WBC MORPHOLOGY (MULTIPLE) NORMAL APPEARANCE (NORMAL)
[2024-10-19] MEDS: ALBUTEROL NEB 2.5 MG/3 ML INH PRN (09:13)
--- NOTE | 2024-10-19 12:56 | PROVIDER PROGRESS NOTE ---
Subjective Prog Note Date Prog Note Date: 10/19/24 Subjective Pt reports feeling: Improved Current Medications Current Medications Current Medications: Current Medications Generic Name Dose Route Start Last Admin Trade Name Freq PRN Reason Stop Dose Admin Acetaminophen 650 mg 10/17/24 18:00 10/19/24 06:27 Acetaminophen 325 Mg Tablet PO 650 mg Q6HR DANIEL Administration Albuterol 2.5 mg 10/15/24 23:36 10/19/24 09:13 Albuterol Neb 2.5 Mg/3 Ml INH 2.5 mg RTQ4H PRN Administration Wheezing Budesonide 0.5 mg 10/16/24 07:00 10/19/24 04:56 Budesonide 0.5 Mg/2 Ml Neb INH 0.5 mg RTBID DANIEL Administration Calcium Carbonate/Glycine 500 mg 10/17/24 11:57 10/17/24 12:05 Calcium Carbonate Chew 500 Mg Tablet PO 500 mg BID PRN Administration Heartburn Enoxaparin Sodium 40 mg 10/14/24 21:00 10/18/24 21:46 Enoxaparin 40 Mg/0.4 Ml Syringe SUBQ 40 mg HS DANIEL Administration Formoterol Fumarate 20 mcg 10/16/24 07:00 10/19/24 04:56 Formoterol Fumarate Neb 20 Mcg/2 Ml INH 20 mcg RTBID DANIEL Administration Gabapentin 300 mg 10/18/24 12:00 10/19/24 06:27 Gabapentin 300 Mg Capsule PO 300 mg TID DANIEL Administration Hydromorphone HCl 0.5 mg 10/18/24 06:28 10/18/24 22:58 Hydromorphone 0.5 Mg/0.5 Ml Syringe IVP 0.5 mg Q3HR PRN Administration Severe Pain (Level 7-10) Lactated Ringer's 1,000 mls @ 100 mls/hr 10/16/24 01:30 10/19/24 11:42 Lr IV Not Given .Q10H DANIEL Piperacillin Sod/Tazobactam 100 mls @ 25 mls/hr 10/16/24 16:00 10/19/24 12:30 Sod 4.5 gm/ Sodium Chloride IV Infused Q8H DANIEL Infusion Ibuprofen 600 mg 10/17/24 18:00 10/19/24 06:27 Ibuprofen 600 Mg Tablet PO 600 mg Q6HR DANIEL Administration Lorazepam 0.5 mg 10/14/24 20:21 10/18/24 20:36 Lorazepam 2 Mg/Ml Vial IVP 0.5 mg Q2H PRN Administration Anxiety Methocarbamol 500 mg 10/18/24 12:00 10/19/24 06:27 Methocarbamol 500 Mg Tablet PO 500 mg Q6HR DANIEL Administration Nicotine 1 patch 10/14/24 21:00 10/18/24 21:51 Nicotine 21 Mg Patch TOP 1 patch HS DANIEL Administration Ondansetron HCl 4 mg 10/14/24 20:21 10/19/24 10:22 Ondansetron 4 Mg/2 Ml Vial IVP 4 mg Q6HR PRN Administration Nausea / Vomiting Oxycodone HCl 7.5 mg 10/18/24 12:00 10/19/24 09:29 Oxycodone 5 Mg Tablet PO 7.5 mg Q4HR DANIEL Administration Pantoprazole Sodium 40 mg 10/17/24 12:00 10/19/24 06:28 Pantoprazole 40 Mg Tablet PO 40 mg QDAC DANIEL Administration Phenol/Menthol 2 sprays 10/19/24 09:23 Phenol Throat [place] 177 Ml MM Q4HR PRN Mouth Sore Pain Phenol/Menthol 2 sprays 10/19/24 09:36 Phenol Throat [place] 177 Ml MM Q2HR PRN Throat Pain Prochlorperazine Edisylate 10 mg 10/18/24 14:43 10/18/24 14:51 Prochlorperazine 10 Mg/2 Ml Vial IVP 10 mg Q6HR PRN Administration Nausea / Vomiting Sodium Chloride 10 ml 10/14/24 20:21 Sodium Chloride Flush 0.9% 10 Ml Syringe IVP PRN PRN NEEDED PER PROVIDER ORDERS Sodium Chloride 10 ml 10/15/24 01:00 10/19/24 09:30 Sodium Chloride Flush 0.9% 10 Ml Syringe IVP Not Given 0100,0900,1700 DANIEL Throat Lozenges 1 lozenge 10/16/24 05:25 10/16/24 06:20 Benzocaine/Menthol Lozenge MM 1 lozenge Q2HR PRN Administration Throat pain Trazodone HCl 50 mg 10/18/24 21:37 10/18/24 21:47 Trazodone 50 Mg Tablet PO 50 mg QPM PRN Administration sleep Objective Vital Signs/Intake & Output Reviewed Vital Signs: Yes Vital Signs: Vital Signs x48h Temp Pulse Pulse Resp BP Pulse Ox O2 Flow Rate 10/19/24 09:14 88 20 10/19/24 05:40 36.8 C 68 18 141/88 H 97 1 10/19/24 05:09 1 10/19/24 04:57 3 10/19/24 04:57 71 16 3 Intake & Output: Intake & Output 10/16/24 10/17/24 10/18/24 10/19/24 23:59 23:59 23:59 23:59 Intake Total 3567 / 3567 4880 / 4880 1432 / 1432 1080 / 1080 Output Total 2090 / 2090 1520 / 1520 3770 / 3770 1830 / 1830 Balance 1477 / 1477 3360 / 3360 -2338 / -2338 -750 / -750 Objective General Appearance: positive No acute distress and Alert Eyes Bilateral: positive Normal inspection Neck: positive Nml inspection Respiratory: positive Chest non-tender Cardiovascular: positive Regular rate & rhythm Abdomen: positive Nml bowel sounds, Tenderness and Other (Surgical dressing in place, ostomy, Drain. Ostomy with some output) Skin: positive Color nml Extremities: positive Non-tender Neurologic/Psychiatric: positive Oriented x3 Lab Results 10/19/24 05:24 10/19/24 05:24 Other Labs: Lab Results x24hrs 10/19/24 10/15/24 Range/Units 05:24 15:37 WBC 15.6 H (4.8-10.8) x10^3/uL RBC 4.21 L (4.70-6.10) 10^6/uL Hgb 12.5 L (14.0-18.0) g/dL Hct 37.2 L (42.0-52.0) % MCV 88.4 (80.0-94.0) fL MCH 29.7 (27.0-31.0) pg MCHC 33.6 (32.0-36.0) g/dL RDW 12.8 (12.0-15.0) % Plt Count 291 (130-450) 10^3/uL MPV 8.9 (7.4-11.4) fL Neut # (Auto) 12.4 H (1.5-6.6) 10^3/uL Lymph # (Auto) 1.0 L (1.5-3.5) 10^3/uL [place] # (Auto) 1.5 H (0.0-1.0) 10^3/uL Eos # (Auto) 0.2 (0.0-0.7) 10^3/uL Baso # (Auto) 0.1 (0.0-0.1) 10^3/uL Absolute Nucleated RBC 0.00 x10^3/uL Band Neuts % (Manual) Not Reportable Abnorm Lymph % (Manual) Not Reportable Nucleated RBC % 0.0 /100WBC Neutrophils # (Manual) Not Reportable Lymphocytes # (Manual) Not Reportable Monocytes # (Manual) Not Reportable Eosinophils # (Manual) Not Reportable Basophils # (Manual) Not Reportable Differential Comment MANUAL=AUTO DIFF WBC Morphology NORMAL APPEARANCE (NORMAL) Platelet Estimate NORMAL (130-450,000) (NORMAL) Platelet Morphology NORMAL APPEARANCE (NORMAL) RBC Morph Micro Appear NORMAL APPEARANCE (NORMAL) Sodium 138 (135-145) mmol/L Potassium 3.7 (3.5-4.5) mmol/L Chloride 100 L (101-111) mmol/L Carbon Dioxide 30 (21-32) mmol/L Anion Gap 8.0 (6-13) BUN 23 H (6-20) mg/dL Creatinine 0.7 (0.6-1.3) mg/dL Estimated GFR (MDRD) 129 (>89) Glucose 125 H (74-104) mg/dL Calcium 9.0 (8.5-10.3) mg/dL Crossmatch IS Only See Detail Assessment/Plan Problem List (1) Sepsis: Impression: Sepsis secondary to bowel perforation Blood cultures in progress WBC 16.9 today Continue Zosyn, While monitoring renal function with daily BMP Manage bowel Perforation as below 10/19: WBC continues to improve. Today it is 15.6. Continue Zosyn (2) Perforation of sigmoid colon due to diverticulitis: Impression: OR on 10/15 for ex lap with colon resection and colostomy Wet-to-dry dressing in place Working with nursing to place wound VAC Wound VAC at discharge Continue clear liquid diet until there is stool output in ostomy Passing flatus, no bowel movement yet Managing pain in conjunction with general surgery Dose of IV Dilaudid has been reduced. He has been started on oxycodone 7.5 mg. I have changed his oxycodone to scheduled and have increased the dose of his gabapentin. Continue 0.5 mg Dilaudid IV 10/19: After time of yesterday's note, pain gradually kept increasing. KUB was performed which showed ileus, so NGT was placed. Today, he feels much better. Clamping trial has again been started.
--- NOTE | 2024-10-19 17:54 | PROVIDER PROGRESS NOTE ---
Subjective General Admit Date: 10/14/24 Procedure Date: 10/16/24 Post Op Days: 3 Procedure Performed: open sigmoid colon rescection and end colostomy, washout Other Other Information/Narrative: Pain controlled. Nausea much improved after NG placed yesterday, 1100mL output since placement. Patient states he's noted some noise and output from ostomy. He denies fevers or chills. He would like to get out of bed today. On recheck this afternoon, patient denies nausea with NG clamped and is resting comfortably, taking a nap. Exam Exam Vital Signs: Vital Signs x48h Temp Pulse Resp BP Pulse Ox 10/19/24 17:00 98.1 F 74 18 154/98 H 93 Vital Signs Temp 98.1 F 10/19/24 17:00 Pulse 74 10/19/24 17:00 Resp 18 10/19/24 17:00 BP 154/98 H 10/19/24 17:00 Pulse Ox 93 10/19/24 17:00 O2 Flow Rate 1 10/19/24 05:40 Intake & Output 10/18/24 10/19/24 10/19/24 23:59 11:59 23:59 Intake Total 332 / 1432 980 / 1080 100 / 1080 Output Total 3235 / 3770 1580 / 1850 270 / 1850 Balance -2903 / -2338 -600 / -770 -170 / -770 Intake: Intake, IV Amount (ml) 332 / 1432 980 / 1080 100 / 1080 Lactated Ringers 1,000 ml @ 100 132 / 1132 880 / 880 mls/hr IV .Q10H DANIEL Rx#: [id number] Piperacillin/Tazobactam 4.5 gm 200 / 300 100 / 200 100 / 200 In Sodium Chloride 0.9% Minibag 100 ml @ 25 mls/hr IV Q8H DANIEL Rx#:[id number] Output: Gastric Drainage 1100 / 1100 1050 / 1050 Drainage 67 / 127 130 / 150 20 / 150 MARTÍNEZ Right Abdomen 100 / 120 20 / 120 Right Abdomen 67 / 107 30 / 30 Urine 0 / 2525 400 / 400 Stool 250 / 250 Other: % Meal consumed 0 Gen: NAD, alert and oriented CV: RRR Pulm: non labored, on RA Abd: soft, appropriately ttp, no r/g. wound vac in place with no significant output. MARTÍNEZ in place with 180mL serosang output in last 24 hours. Ostomy pink and productive of gas and stool Ext: no c/c/e ABX Reporting Has patient been on IV antibiotics over the past 48 hours?: Yes Impression/Plan Problem List (1) Sepsis: Plan: resolved, due to #2 (2) Perforation of sigmoid colon due to diverticulitis: Plan: 34 y/o M admitted with microperfoated diverticulitis, which progressed to kimberly perforation with free air and purulent peritonitis. POD # 4, Sigmoid colectomy, end descending colostomy, abdominal washout, drain placement Code Status: Full - delayed return of bowel function as expected given extent of disease and surgery needed. The patient's ostomy is productive of gas and stool today. NG clamped. >200mL output after clamping for 6 hours but patient not having any nausea or increased pain. Will leave NG clamped overnight and continue sips/chips - Bcx ngtd, fluid cx from surgery and pathology pending - Wound vac in place (superficial) plan for change MWF. He will likely be discharged with vac and will need vac changes and supplies. - continue IV abx today, plan to complete at least 5 day course. - iniguez in place for urinary retention. Will remove tomorrow. - singultus improved today - pain well controlled. - adding chloraseptic today - increase activity today - continue to encourage IS Ppx: SCD's, IS, lovenox
[2024-10-19] MEDS: PHENOL THROAT SPRAY 177 ML MM PRN (20:25)
[2024-10-20 05:05] LABS: HCT - HEMATOCRIT 34.9 % (42.0-52.0); HGB - HEMOGLOBIN 11.6 g/dL (14.0-18.0); MEAN PLATELET VOLUME 9.3 fL (7.4-11.4); PLT - PLATELET COUNT 288 10^3/uL (130-450); RED CELL DISTRIBUTION WIDTH 13.1 % (12.0-15.0)
[2024-10-20 05:08] LABS: ABNORMAL LYMPHS % (MANUAL) 0 %; BASOPHILS # (MANUAL) 0.0 10^3/uL (0-0.1)
[2024-10-20 05:10] LABS: BUN - BLOOD UREA NITROGEN 20.0 mg/dL (6-20); CARBON DIOXIDE - CO2 29.0 mmol/L (21-32); CREATININE 0.7 mg/dL (0.6-1.3); GFR - MDRD 129.0 (>89)
[2024-10-20 06:19] LABS: BAND NEUTROPHILS % (MANUAL) 8 %; EOSINOPHILS # (MANUAL) 0.8 10^3/uL (0-0.7); LYMPHOCYTES # (MANUAL) 1.1 10^3/uL (1.5-3.5); LYMPHOCYTES % (MANUAL) 7 %; MONOCYTES # (MANUAL) 1.2 10^3/uL (0.0-1.0); NEUTROPHILS # (MANUAL) 12.5 10^3/uL (1.5-6.6); PLATELET ESTIMATE, MANUAL NORMAL (130-450,000) (NORMAL); PLATELET MORPHOLOGY NORMAL APPEARANCE (NORMAL); RBC MORPHOLOGY (MULTIPLE) NORMAL APPEARANCE (NORMAL)
[2024-10-20] MEDS: MAG HYDROX/AL HYDROX/SIMETH 30 ML UDC PO STA (06:53)
--- NOTE | 2024-10-20 08:28 | PROVIDER PROGRESS NOTE ---
Subjective General Admit Date: 10/14/24 Procedure Date: 10/15/24 Post Op Days: 5 Procedure Performed: open sigmoid colon rescection and end colostomy, washout Other Other Information/Narrative: Pain controlled. Tolerating NG clamping for 24 hours with sips/chips. +ambulation in garcia with RN this AM. Hall out this AM but has not voided yet. No acute events overnight. Exam Exam Vital Signs: Vital Signs x48h Temp Pulse Pulse Resp BP Pulse Ox O2 Flow Rate 10/20/24 09:08 16 94 10/20/24 08:32 16 96 1.5 10/20/24 08:30 16 88 L 10/20/24 08:14 76 18 90 L 10/20/24 08:10 97.9 F 64 20 134/80 H 97 10/20/24 05:50 2 10/20/24 05:46 73 20 2 10/20/24 05:00 98.2 F 75 20 130/94 H 97 2 Vital Signs Temp 97.9 F 10/20/24 08:10 Pulse 76 10/20/24 08:14 Resp 16 10/20/24 09:08 BP 134/80 H 10/20/24 08:10 Pulse Ox 94 10/20/24 09:08 O2 Flow Rate 1.5 10/20/24 08:32 Intake & Output 10/19/24 10/19/24 10/20/24 11:59 23:59 11:59 Intake Total 980 / 2492 1512 / 2492 798 / 798 Output Total 1580 / 2835 1255 / 2835 1040 / 1040 Balance -600 / -343 257 / -343 -242 / -242 Intake: Intake, IV Amount (ml) 980 / 2482 1502 / 2482 798 / 798 Lactated Ringers 1,000 ml @ 100 880 / 2182 1302 / 2182 698 / 698 mls/hr IV .Q10H DANIEL Rx#: [id number] Piperacillin/Tazobactam 4.5 gm 100 / 300 200 / 300 100 / 100 In Sodium Chloride 0.9% Minibag 100 ml @ 25 mls/hr IV Q8H DANIEL Rx#:[id number] Other 10 / 10 Left nare 10 / 10 Output: Gastric Drainage 1050 / 1050 Drainage 130 / 210 80 / 210 40 / 40 MARTÍNEZ Right Abdomen 100 / 150 50 / 150 20 / 20 Right Abdomen 30 / 60 30 / 60 20 / 20 Urine 400 / 1300 900 / 1300 1000 / 1000 Urethral Non-latex Two-Way 16fr 450 / 450 10cc Stool 275 / 275 Gen: NAD, alert and oriented CV: RRR Pulm: non labored, on RA Abd: soft, appropriately ttp, no r/g. wound vac in place with no significant output. MARTÍNEZ in place with 210mL serosang output in last 24 hours. Ostomy pink and productive of gas and stool Ext: no c/c/e Impression/Plan Problem List (1) Sepsis: Plan: resolved, due to #2 (2) Perforation of sigmoid colon due to diverticulitis: Plan: 34 y/o M admitted with microperfoated diverticulitis, which progressed to kimberly perforation with free air and purulent peritonitis. POD # 5, Sigmoid colectomy, end descending colostomy, abdominal washout, drain placement Code Status: Full - delayed return of bowel function as expected given extent of disease and surgery needed, improving. The patient's ostomy is productive of gas and stool today. NG clamped for 24 hours. Will remove NG today and offer full liquid diet sparingly. - Bcx negative after 5 days, fluid cx from surgery grew mutiple microbes, pathology pending - Wound vac in place (superficial) plan for change weekly, if leukocytosis has resolved by the end of the week, may consider delayed primary closure of the skin. If not, he will be discharged with vac and will need vac changes and supplies. - continue IV abx today, plan to complete at least 5 day course. - hira removed this AM (in place for retention) - pain well controlled - increase activity today - continue to encourage IS Ppx: SCD's, IS, lovenox
[2024-10-20] MEDS: oxyCODONE 5 MG TABLET PO SCH (10:10)
[2024-10-20] MEDS: SODIUM CHLORIDE FLUSH 0.9% 10 ML SYRINGE IVP PRN (11:07)
--- NOTE | 2024-10-20 14:13 | PROVIDER PROGRESS NOTE ---
Subjective Prog Note Date Prog Note Date: 10/20/24 Subjective Pt reports feeling: Improved Current Medications Current Medications Current Medications: Current Medications Generic Name Dose Route Start Last Admin Trade Name Freq PRN Reason Stop Dose Admin Acetaminophen 650 mg 10/17/24 18:00 10/20/24 11:36 Acetaminophen 325 Mg Tablet PO 650 mg Q6HR DANIEL Administration Albuterol 2.5 mg 10/15/24 23:36 10/20/24 05:46 Albuterol Neb 2.5 Mg/3 Ml INH 2.5 mg RTQ4H PRN Administration Wheezing Budesonide 0.5 mg 10/16/24 07:00 10/20/24 05:46 Budesonide 0.5 Mg/2 Ml Neb INH 0.5 mg RTBID DANIEL Administration Calcium Carbonate/Glycine 500 mg 10/17/24 11:57 10/17/24 12:05 Calcium Carbonate Chew 500 Mg Tablet PO 500 mg BID PRN Administration Heartburn Enoxaparin Sodium 40 mg 10/14/24 21:00 10/19/24 21:21 Enoxaparin 40 Mg/0.4 Ml Syringe SUBQ 40 mg HS DANIEL Administration Formoterol Fumarate 20 mcg 10/16/24 07:00 10/20/24 05:46 Formoterol Fumarate Neb 20 Mcg/2 Ml INH 20 mcg RTBID DANIEL Administration Gabapentin 300 mg 10/18/24 12:00 10/20/24 14:09 Gabapentin 300 Mg Capsule PO 300 mg TID DANIEL Administration Hydromorphone HCl 0.5 mg 10/18/24 06:28 10/20/24 14:09 Hydromorphone 0.5 Mg/0.5 Ml Syringe IVP 0.5 mg Q3HR PRN Administration Severe Pain (Level 7-10) Lactated Ringer's 1,000 mls @ 100 mls/hr 10/16/24 01:30 10/20/24 06:07 Lr IV 100 mls/hr .Q10H DANIEL Administration Piperacillin Sod/Tazobactam 100 mls @ 25 mls/hr 10/16/24 16:00 10/20/24 13:29 Sod 4.5 gm/ Sodium Chloride IV Infused Q8H DANIEL Infusion Ibuprofen 600 mg 10/17/24 18:00 10/20/24 11:36 Ibuprofen 600 Mg Tablet PO 600 mg Q6HR DANIEL Administration Lorazepam 0.5 mg 10/14/24 20:21 10/18/24 20:36 Lorazepam 2 Mg/Ml Vial IVP 0.5 mg Q2H PRN Administration Anxiety Methocarbamol 500 mg 10/18/24 12:00 10/20/24 11:35 Methocarbamol 500 Mg Tablet PO 500 mg Q6HR DANIEL Administration Nicotine 1 patch 10/14/24 21:00 10/19/24 21:36 Nicotine 21 Mg Patch TOP Not Given HS DANIEL Ondansetron HCl 4 mg 10/14/24 20:21 10/19/24 21:41 Ondansetron 4 Mg/2 Ml Vial IVP 4 mg Q6HR PRN Administration Nausea / Vomiting Oxycodone HCl 7.5 mg 10/20/24 11:00 10/20/24 10:10 Oxycodone 5 Mg Tablet PO 7.5 mg Q4H DANIEL Administration Pantoprazole Sodium 40 mg 10/17/24 12:00 10/20/24 06:04 Pantoprazole 40 Mg Tablet PO 40 mg QDAC DANIEL Administration Phenol/Menthol 2 sprays 10/19/24 09:23 Phenol Throat [place] 177 Ml MM Q4HR PRN Mouth Sore Pain Phenol/Menthol 2 sprays 10/19/24 09:36 10/19/24 20:25 Phenol Throat [place] 177 Ml MM 2 sprays Q2HR PRN Administration Throat Pain Prochlorperazine Edisylate 10 mg 10/18/24 14:43 10/18/24 14:51 Prochlorperazine 10 Mg/2 Ml Vial IVP 10 mg Q6HR PRN Administration Nausea / Vomiting Sodium Chloride 10 ml 10/14/24 20:21 10/20/24 11:07 Sodium Chloride Flush 0.9% 10 Ml Syringe IVP 10 ml PRN PRN Administration NEEDED PER PROVIDER ORDERS Sodium Chloride 10 ml 10/15/24 01:00 10/20/24 08:30 Sodium Chloride Flush 0.9% 10 Ml Syringe IVP 10 ml 0100,0900,1700 DANIEL Administration Throat Lozenges 1 lozenge 10/16/24 05:25 10/16/24 06:20 Benzocaine/Menthol Lozenge MM 1 lozenge Q2HR PRN Administration Throat pain Trazodone HCl 50 mg 10/18/24 21:37 10/19/24 21:20 Trazodone 50 Mg Tablet PO 50 mg QPM PRN Administration sleep Objective Vital Signs/Intake & Output Reviewed Vital Signs: Yes Vital Signs: Vital Signs x48h Temp Pulse Resp BP Pulse Ox O2 Flow Rate 10/20/24 11:51 36.4 C L 70 16 155/94 H 93 10/20/24 09:08 16 94 10/20/24 08:32 16 96 1.5 10/20/24 08:30 16 88 L 10/20/24 08:14 76 18 90 L 10/20/24 08:10 36.6 C 64 20 134/80 H 97 Intake & Output: Intake & Output 10/17/24 10/18/24 10/19/24 10/20/24 23:59 23:59 23:59 23:59 Intake Total 4880 / 4880 1432 / 1432 2492 / 2492 898 / 898 Output Total 1520 / 1520 3770 / 3770 2835 / 2835 1255 / 1255 Balance 3360 / 3360 -2338 / -2338 -343 / -343 -357 / -357 Objective General Appearance: positive No acute distress and Alert Eyes Bilateral: positive Normal inspection Neck: positive Nml inspection Respiratory: positive Chest non-tender Cardiovascular: positive Regular rate & rhythm Abdomen: positive Nml bowel sounds, Tenderness and Other (Surgical dressing in place, ostomy, Drain. Ostomy with some output) Skin: positive Color nml Extremities: positive Non-tender Neurologic/Psychiatric: positive Oriented x3 Lab Results 10/20/24 04:32 10/20/24 04:32 Other Labs: Lab Results x24hrs 10/20/24 Range/Units 04:32 WBC 15.6 H (4.8-10.8) x10^3/uL RBC 3.90 L (4.70-6.10) 10^6/uL Hgb 11.6 L (14.0-18.0) g/dL Hct 34.9 L (42.0-52.0) % MCV 89.5 (80.0-94.0) fL MCH 29.7 (27.0-31.0) pg MCHC 33.2 (32.0-36.0) g/dL RDW 13.1 (12.0-15.0) % Plt Count 288 (130-450) 10^3/uL MPV 9.3 (7.4-11.4) fL Neut # (Auto) Not Reportable Lymph # (Auto) Not Reportable [place] # (Auto) Not Reportable Eos # (Auto) Not Reportable Baso # (Auto) Not Reportable Absolute Nucleated RBC Not Reportable Total Counted 100 Band Neuts % (Manual) 8 (0 - 10) % Abnorm Lymph % (Manual) 0 % Nucleated RBC % Not Reportable Neutrophils # (Manual) 12.5 H (1.5-6.6) 10^3/uL Lymphocytes # (Manual) 1.1 L (1.5-3.5) 10^3/uL Monocytes # (Manual) 1.2 H (0.0-1.0) 10^3/uL Eosinophils # (Manual) 0.8 H (0-0.7) 10^3/uL Basophils # (Manual) 0.0 (0-0.1) 10^3/uL Differential Comment MANUAL DIFFERENTIAL Platelet Estimate NORMAL (130-450,000) (NORMAL) Platelet Morphology NORMAL APPEARANCE (NORMAL) RBC Morph Micro Appear NORMAL APPEARANCE (NORMAL) Sodium 138 (135-145) mmol/L Potassium 3.8 (3.5-4.5) mmol/L Chloride 102 (101-111) mmol/L Carbon Dioxide 29 (21-32) mmol/L Anion Gap 7.0 (6-13) BUN 20 (6-20) mg/dL Creatinine 0.7 (0.6-1.3) mg/dL Estimated GFR (MDRD) 129 (>89) Glucose 108 H (74-104) mg/dL Calcium 8.7 (8.5-10.3) mg/dL Assessment/Plan Problem List (1) Sepsis: Impression: Sepsis secondary to bowel perforation Blood cultures in progress WBC 16.9 today Continue Zosyn, While monitoring renal function with daily BMP Manage bowel Perforation as below 10/19: WBC continues to improve. Today it is 15.6. Continue Zosyn 10/20: WBC stable at 15.6. Continue Zosyn (2) Perforation of sigmoid colon due to diverticulitis: Impression: OR on 10/15 for ex lap with colon resection and colostomy Wet-to-dry dressing in place Working with nursing to place wound VAC Wound VAC at discharge Continue clear liquid diet until there is stool output in ostomy Passing flatus, no bowel movement yet Managing pain in conjunction with general surgery Dose of IV Dilaudid has been reduced. He has been started on oxycodone 7.5 mg. I have changed his oxycodone to scheduled and have increased the dose of his gabapentin. Continue 0.5 mg Dilaudid IV 10/19: After time of yesterday's note, pain gradually kept increasing. KUB was performed which showed ileus, so NGT was placed. Today, he feels much better. Clamping trial has again been started. 10/20: After discussion with general surgery, we will remove NGT and start on full liquid diet. He tolerated NGT clamping trial last night. If WBC remains elevated, will consider CT scan to evaluate for any ongoing gut leak. If all is well, we will make him n.p.o. after midnight on the morning of the to attempt wound closure
[2024-10-20] MEDS: HYDROmorphone 0.5 MG/0.5 ML SYRINGE IVP ONE (16:38)
[2024-10-20] MEDS: HYDROmorphone 0.5 MG/0.5 ML SYRINGE IVP PRN (19:28)
[2024-10-20] MEDS: METOCLOPRAMIDE 10 MG/2 ML VIAL IVP PRN (20:07)
[2024-10-21 05:46] LABS: HCT - HEMATOCRIT 35.6 % (42.0-52.0); HGB - HEMOGLOBIN 11.4 g/dL (14.0-18.0); MEAN PLATELET VOLUME 9.3 fL (7.4-11.4); PLT - PLATELET COUNT 307 10^3/uL (130-450); RED CELL DISTRIBUTION WIDTH 13.3 % (12.0-15.0)
[2024-10-21 06:01] LABS: BUN - BLOOD UREA NITROGEN 18.0 mg/dL (6-20); CARBON DIOXIDE - CO2 31.0 mmol/L (21-32); CREATININE 0.8 mg/dL (0.6-1.3); GFR - MDRD 111.0 (>89)
[2024-10-21 06:02] LABS: ABNORMAL LYMPHS % (MANUAL) 0 %; BASOPHILS # (MANUAL) 0.0 10^3/uL (0-0.1)
[2024-10-21 06:29] LABS: BAND NEUTROPHILS % (MANUAL) 10 %; EOSINOPHILS # (MANUAL) 0.6 10^3/uL (0-0.7); LYMPHOCYTES # (MANUAL) 0.8 10^3/uL (1.5-3.5); LYMPHOCYTES % (MANUAL) 5 %; METAMYELOCYTES % (MANUAL) 1 %; MONOCYTES # (MANUAL) 1.8 10^3/uL (0.0-1.0); MYELOCYTES % (MANUAL) 1 %; NEUTROPHILS # (MANUAL) 12.6 10^3/uL (1.5-6.6); PLATELET ESTIMATE, MANUAL NORMAL (130-450,000) (NORMAL); PLATELET MORPHOLOGY NORMAL APPEARANCE (NORMAL); RBC MORPHOLOGY (MULTIPLE) NORMAL APPEARANCE (NORMAL); WBC MORPHOLOGY (MULTIPLE) NORMAL APPEARANCE (NORMAL)
--- NOTE | 2024-10-21 09:00 | PROVIDER PROGRESS NOTE ---
Subjective General Admit Date: 10/14/24 Procedure Date: 10/15/24 Post Op Days: 6 Procedure Performed: open sigmoid colon rescection and end colostomy, washout Wound Assessment Wound/Incisions: positive Drainage Drain Type: The wound VAC was removed yesterday and should be replaced today. Review of Systems Status of ROS: 10 or more systems reviewed and unremarkable except as noted in history and below Constitutional Reports: Fatigue, Chills, Malaise, Weakness and Diaphoresis Cardiovascular Denies: shortness of breath with exertion Respiratory Denies: Shortness of breath or Cough Gastrointestinal Reports: Abdominal pain and Nausea; Denies: Vomiting Endocrine Reports: Fatigue Exam Exam Vital Signs: Vital Signs x48h Temp Pulse Resp BP Pulse Ox O2 Flow Rate 10/21/24 08:45 36.5 C 70 20 134/83 H 95 1 General: 34-year-old male, appears stated age, appears slightly somnolent, covered with only a sheet, has a fan blowing on him HEENT: Normocephalic, atraumatic, extraocular movement intact, mucous membranes pink and moist, sclera anicteric and not injected Neck: Supple without pain on palpation, mass or bruit Cardiac: Regular rate and rhythm without rub, gallop, or murmur Chest: Clear to auscultation bilaterally Abdomen: Decreased bowel sounds, slightly distended, wound opened and dressed but I did not take the dressings down as I am expecting that the wound VAC will be replaced Genitourinary: Deferred Rectal: Deferred Extremities: No gross neurovascular problem, no clubbing, cyanosis or edema Gait: No gross motor deficit Psychiatric: Alert and oriented to person place and time, asks and answers questions appropriately, mood and affect appropriate Impression/Plan Problem List (1) Sepsis: (2) Perforation of sigmoid colon due to diverticulitis: Plan Postop day 6 status post sigmoidectomy with end colostomy and Montes's pouch, extensive abdominal washout and placement of a drain ID) Patient is obviously at a risk for an intra-abdominal infection due to the spillage of his abdominal contents requiring surgery. Patient remains on Zosyn I believe day 6 of I would say 7 to 10 days. White blood cell count is elevated and considering the patient's prolonged ileus I have ordered a CT scan of the abdomen and pelvis to look for an undrained fluid collection (abscess). I will repeat the labs in the morning. FEN) Continue current IV rate. Can provide oral intake for comfort. Wound) Replace wound VAC today. I explained to the patient that this will not make the wound heal better but it will heal faster. With my concern for infec tion I would not currently perform a delayed primary closure Activity) I explained to the patient that despite the surgery and everything he has been through I need him up and out of bed more frequently including up in a chair as well as ambulating in the halls. If he is unwilling to do this on his own we should involve OT and PT if they have not already been included in his care. Continue IS. Pain) Good control with current regimen.
[2024-10-21] MEDS ORDERED: DIATRIZOATE MEGLU/DIATRIZO SOD 30 ML BOTTLE PO ONE (11:52)
--- NOTE | 2024-10-21 14:04 | PT Plan of Care ---
PT Plan of Care Physical Therapy Plan of Care: Diagnosis Diagnosis sepsis, perforated diverticulitis Diagnosis s/p ex lap c colon resection 10/15/24 Referring Provider Hussein Roa Patient Status Inpatient Chief Complaint Chief Complaint pain Onset of Chief Complaint s/p 10/15 ex lap Balance/ Functional Results Sitting Balance Good Standing Balance Fair Assessment Assessment Pt is a 34yo M referred for PT eval d/t pain and limited mobility POD6 s/p ex lap with colon resection. Pt is normally indep at baseline and lives alone but states he will stay with an aunt and uncle on the main level when he dc's home. PMH includes colitis, see med rec for further details. Cleared for eval by surgeon. Upon PT eval, pt met on 1L O2 though pt was able to wean to RA for PT eval and SpO2 95% or higher. Pain 6/10 with movement and dressing saturated. RN attended for pain meds and dressing change. Despite this pt was able to transfer with CGA overall and prefers FWW use d/t pain. Unable to progress gait training d/t pain and need for dressing change. While pt presents with impairments in pain and requires nsg assistance for dressing care and drain management, his PT needs are minimal. Plan to review safe transfers and progress gait training during next session. Anticipate 1-3 more visits during acute stay then dc home without further rehab need. Goals Improve bed mobility to: Modified Independent Improve supine to sit to: Modified Independent Improve sit to stand to: Modified Independent Improve pivot transfer ability Modified Independent to: Improve sit to supine to: Modified Independent Improve gait ability to: Ind Assistive Device Used: None,Front Wheeled Walker PT Plan of Care Duration 1-3 more visits Discharge Recommendations Discharge Location Previous Living Situation Support/Services Needed With assist Other tbd Transport Needs at Discharge Personal vehicle
--- NOTE | 2024-10-21 14:20 | PROVIDER PROGRESS NOTE ---
Subjective Prog Note Date Prog Note Date: 10/21/24 Subjective Subjective: complaints of midline pain. Wound vac removed, wet to dry dressing in place. Drinking contrast, getting ready to go to CT now. CT completed, and then he was hungry. but not able to eat dinner. Current Medications Current Medications Current Medications: Current Medications Generic Name Dose Route Start Last Admin Trade Name Freq PRN Reason Stop Dose Admin Acetaminophen 650 mg 10/17/24 18:00 10/21/24 12:15 Acetaminophen 325 Mg Tablet PO 650 mg Q6HR DANIEL Administration Albuterol 2.5 mg 10/15/24 23:36 10/20/24 14:17 Albuterol Neb 2.5 Mg/3 Ml INH 2.5 mg RTQ4H PRN Administration Wheezing Budesonide 0.5 mg 10/16/24 07:00 10/21/24 07:07 Budesonide 0.5 Mg/2 Ml Neb INH Not Given RTBID DANIEL Calcium Carbonate/Glycine 500 mg 10/17/24 11:57 10/17/24 12:05 Calcium Carbonate Chew 500 Mg Tablet PO 500 mg BID PRN Administration Heartburn Enoxaparin Sodium 40 mg 10/14/24 21:00 10/20/24 20:09 Enoxaparin 40 Mg/0.4 Ml Syringe SUBQ 40 mg HS DANIEL Administration Formoterol Fumarate 20 mcg 10/16/24 07:00 10/21/24 07:07 Formoterol Fumarate Neb 20 Mcg/2 Ml INH Not Given RTBID DANIEL Gabapentin 300 mg 10/18/24 12:00 10/21/24 05:40 Gabapentin 300 Mg Capsule PO 300 mg TID DANIEL Administration Hydromorphone HCl 1 mg 10/20/24 19:19 10/21/24 12:07 Hydromorphone 0.5 Mg/0.5 Ml Syringe IVP 1 mg Q3HR PRN Administration Severe Pain (Level 7-10) Piperacillin Sod/Tazobactam 100 mls @ 25 mls/hr 10/16/24 16:00 10/21/24 08:16 Sod 4.5 gm/ Sodium Chloride IV 25 mls/hr Q8H DANIEL Administration Ibuprofen 600 mg 10/17/24 18:00 10/21/24 12:14 Ibuprofen 600 Mg Tablet PO 600 mg Q6HR DANIEL Administration Lorazepam 0.5 mg 10/14/24 20:21 10/20/24 22:02 Lorazepam 2 Mg/Ml Vial IVP 0.5 mg Q2H PRN Administration Anxiety Methocarbamol 500 mg 10/18/24 12:00 10/21/24 12:14 Methocarbamol 500 Mg Tablet PO 500 mg Q6HR DANIEL Administration Metoclopramide HCl 5 mg 10/20/24 19:31 10/20/24 20:07 Metoclopramide 10 Mg/2 Ml Vial IVP 5 mg Q6HR PRN Administration Nausea / Vomiting Ondansetron HCl 4 mg 10/14/24 20:21 10/20/24 19:29 Ondansetron 4 Mg/2 Ml Vial IVP 4 mg Q6HR PRN Administration Nausea / Vomiting Oxycodone HCl 7.5 mg 10/20/24 11:00 10/21/24 10:19 Oxycodone 5 Mg Tablet PO 7.5 mg Q4H DANIEL Administration Pantoprazole Sodium 40 mg 10/17/24 12:00 10/21/24 06:33 Pantoprazole 40 Mg Tablet PO 40 mg QDAC DANIEL Administration Phenol/Menthol 2 sprays 10/19/24 09:23 Phenol Throat Flora 177 Ml MM Q4HR PRN Mouth Sore Pain Phenol/Menthol 2 sprays 10/19/24 09:36 10/19/24 20:25 Phenol Throat Flora 177 Ml MM 2 sprays Q2HR PRN Administration Throat Pain Prochlorperazine Edisylate 10 mg 10/18/24 14:43 10/20/24 22:02 Prochlorperazine 10 Mg/2 Ml Vial IVP 10 mg Q6HR PRN Administration Nausea / Vomiting Sodium Chloride 10 ml 10/14/24 20:21 10/20/24 11:07 Sodium Chloride Flush 0.9% 10 Ml Syringe IVP 10 ml PRN PRN Administration NEEDED PER PROVIDER ORDERS Sodium Chloride 10 ml 10/15/24 01:00 10/21/24 08:16 Sodium Chloride Flush 0.9% 10 Ml Syringe IVP 10 ml 0100,0900,1700 DANIEL Administration Throat Lozenges 1 lozenge 10/16/24 05:25 10/16/24 06:20 Benzocaine/Menthol Lozenge MM 1 lozenge Q2HR PRN Administration Throat pain Trazodone HCl 50 mg 10/18/24 21:37 10/21/24 00:23 Trazodone 50 Mg Tablet PO 50 mg QPM PRN Administration sleep Objective Vital Signs/Intake & Output Reviewed Vital Signs: Yes Vital Signs: Vital Signs x48h Temp Pulse Resp BP Pulse Ox O2 Flow Rate 10/21/24 08:45 36.5 C 70 20 134/83 H 95 1 Intake & Output: Intake & Output 10/18/24 10/19/24 10/20/24 10/21/24 23:59 23:59 23:59 23:59 Intake Total 1432 / 1432 2492 / 2492 2248 / 2248 100 / 100 Output Total 3770 / 3770 2835 / 2835 2415 / 2415 580 / 580 Balance -2338 / -2338 -343 / -343 -167 / -167 -480 / -480 Objective General Appearance: positive Mild distress and Anxious Eyes Bilateral: positive Normal inspection ENT: positive ENT inspection nml Neck: positive Nml inspection Respiratory: positive No respiratory distress and Breath sounds nml Cardiovascular: positive Regular rate & rhythm Abdomen: positive Other (stoma pink with stool in the bag. ) Skin: positive Color nml Extremities: positive Non-tender Neurologic/Psychiatric: positive Oriented x3 Comments/Other: midline abdominal incision w bleeding on the right inferior aspect. This looks like a single bleeding vessel w slow venous ooze, but it has been soaking dressings. cauterized vessel with silver nitrate. wound vac re applied. Lab Results 10/21/24 05:26 10/21/24 05:26 Other Labs: Lab Results x24hrs 10/21/24 Range/Units 05:26 WBC 16.2 H (4.8-10.8) x10^3/uL RBC 3.88 L (4.70-6.10) 10^6/uL Hgb 11.4 L (14.0-18.0) g/dL Hct 35.6 L (42.0-52.0) % MCV 91.8 (80.0-94.0) fL MCH 29.4 (27.0-31.0) pg MCHC 32.0 (32.0-36.0) g/dL RDW 13.3 (12.0-15.0) % Plt Count 307 (130-450) 10^3/uL MPV 9.3 (7.4-11.4) fL Neut # (Auto) Not Reportable Lymph # (Auto) Not Reportable [place] # (Auto) Not Reportable Eos # (Auto) Not Reportable Baso # (Auto) Not Reportable Absolute Nucleated RBC Not Reportable Total Counted 100 Band Neuts % (Manual) 10 (0 - 10) % Abnorm Lymph % (Manual) 0 % Metamyelocytes % 1 H ( - 0) % Myelocytes % 1 H ( - 0) % Nucleated RBC % Not Reportable Neutrophils # (Manual) 12.6 H (1.5-6.6) 10^3/uL Lymphocytes # (Manual) 0.8 L (1.5-3.5) 10^3/uL Monocytes # (Manual) 1.8 H (0.0-1.0) 10^3/uL Eosinophils # (Manual) 0.6 (0-0.7) 10^3/uL Basophils # (Manual) 0.0 (0-0.1) 10^3/uL Differential Comment MANUAL DIFFERENTIAL WBC Morphology NORMAL APPEARANCE (NORMAL) Platelet Estimate NORMAL (130-450,000) (NORMAL) Platelet Morphology NORMAL APPEARANCE (NORMAL) RBC Morph Micro Appear NORMAL APPEARANCE (NORMAL) Sodium 137 (135-145) mmol/L Potassium 4.2 (3.5-4.5) mmol/L Chloride 101 (101-111) mmol/L Carbon Dioxide 31 (21-32) mmol/L Anion Gap 5.0 L (6-13) BUN 18 (6-20) mg/dL Creatinine 0.8 (0.6-1.3) mg/dL Estimated GFR (MDRD) 111 (>89) Glucose 108 H (74-104) mg/dL Calcium 8.6 (8.5-10.3) mg/dL Assessment/Plan Problem List (1) Sepsis: Impression: Sepsis secondary to bowel perforation Blood cultures without growth x 5 days. WBC 16.2 today, trend has not favorable. Laboratory Tests 10/18/24 10/19/24 10/20/24 05:11 05:24 04:32 WBC 16.9 H 15.6 H 15.6 H 10/21/24 05:26 WBC 16.2 H Continue Zosyn, While monitoring renal function with daily BMP- Dr Hassleonelis has ordered CT abdomen today. Manage bowel Perforation as below (2) Perforation of sigmoid colon due to diverticulitis: Impression: OR on 10/15 for ex lap with colon resection and colostomy. POD #6 vac change today by me. He is on full liquid diet. There is stool in the stoma bag. I will await CT result, and then advance diet if no abscess, consult further with surgery if procedure is indicated. Managing pain in conjunction with general surgery Pain meds: needing IV dilaudid and IV nausea control. He is on scheduled po oxycodone every 4 hours as well. There is active bleeding from the wound bed. Plan is to cauterize and re apply wound vac. General surgery deciding how to manage wound closure. I have spent 38 minutes in the care of this patient today. This includes time [id number], review and ordering of diagnostic imaging and laboratory studies and consultation with other providers. Monitoring the patient's signs symptoms, evaluation of medication effectiveness and patient's response to treatment.
--- NOTE | 2024-10-21 14:35 | PROCEDURE REPORT ---
Hospitalist Procedure Note Procedure Note Procedure Note: Wound vac application to midline abdominal wound. Patient with ooze from wound. Vac removed last night. today, is continuing to ooze. Single venous bleeding vessel identified on the right side of the wound, cauterized w silver nitrate. clot was removed from the wound bed, and vac was applied in the usual manner. Vac set to 125mmHg, checked several hours later, minimal drainage. Patient tolerated the procedure well.
[2024-10-21] MEDS: HYDROmorphone 0.5 MG/0.5 ML SYRINGE IVP PRN (14:37)
[2024-10-21] MEDS: SILVER NITRATE APPLICATOR TOP ONE (14:53)
--- NOTE | 2024-10-21 15:49 | CT Report ---
PROCEDURE: CT Abdomen/Pelvis WO INDICATIONS: Elevated WBC risk abscess TECHNIQUE: A CT scan of the abdomen and pelvis was performed without the use of intravenous contrast. Images were recorded and evaluated at appropriate window settings. Reformats: coronal and sagittal. For radiation dose reduction, the following was used: automated exposure control, adjustment of mA and/or kV according to patient size. Oral contrast was administered. COMPARISON: CT abdomen pelvis 10/14/2024 with contrast. FINDINGS: Image quality: Diagnostic. Evaluation of the solid organs is limited without IV contrast. Lower chest: Small right pleural effusion. Scattered opacities at the lower lung lungs, new. Some areas have a streaky appearance. Liver: No contour-deforming mass. Gallbladder: No calcified gallstones. Biliary tree: No intrahepatic or extrahepatic dilation. Spleen: Mild splenomegaly. Measures 15.1 cm. Pancreas: No pancreatic ductal dilation. Adrenals: No adrenal nodule. Kidneys and ureters: No hydronephrosis. No kidney stones. No contour-deforming mass. Stomach, bowel and peritoneum: Left abdomen colostomy. Sigmoid stump. There are several prominent loops of small bowel mostly in the left abdomen. No discrete transition point. The stomach is within normal limits. There is oral contrast in the stomach and proximal small bowel. The appendix is not identified. There is a trace amount of free fluid deep to the ventral lower abdominal wall measuring 6.4 x 2.6 x 1.5 cm, (), estimated volume of 13 cc. There are a few foci of free air. There is stranding in the lower abdominal/anterior pelvic fat, (04/10/1941). Right lower quadrant surgical drain with the tip terminating in the left abdomen. Lymph nodes: No central or retroperitoneal adenopathy. There are shotty mesenteric lymph nodes. Vessels: No infrarenal aortic aneurysm. Reproductive organs: Unremarkable. Bladder: No abnormal bladder wall thickening. No bladder stones. Pelvic lymph nodes: No adenopathy by size criteria. Bones: No aggressive osseous abnormality. Other: No significant ventral or inguinal hernia. Flank edema. Ventral abdominal wall wound. Trace free fluid at the subcutaneous lower abdominal wall and gas. Small focus of gas. No loculated fluid collection. IMPRESSION: 1. Status post partial sigmoidectomy and left lower quadrant colostomy. 2. Small amount of free fluid deep to the abdominal incision measuring 6.4 cm and approximately 13 cc. Scant free air which is felt to be postsurgical in nature. 3. Miniscule free fluid and gas in the subcutaneous lower abdominal wall deep to the surgical incision. 4. Small right pleural effusion. Suspected dependent atelectasis. Recommend continued clinical surveillance. If symptoms worsen consider repeat CT scan. Reviewed by: Qasim Holman MD on 10/21/2024 3:48 PM PDT Approved by: Qasim Holman MD on 10/21/2024 3:48 PM PDT Station ID: [id number]
[2024-10-21] MEDS: HYDROmorphone 1 MG/ML CARPUJECT IVP PRN (17:21)
--- NOTE | 2024-10-21 18:19 | WOUND CARE PROGRESS NOTE ---
Conclusion and Plan Problem List (1) Sepsis: (2) Perforation of sigmoid colon due to diverticulitis: Plan Plan: Consult submitted to [facility] for ostomy education. Delivered handout to the pt and his mother Saturday for their review. Set appt for this afternoon to provide ostomy education. Pt not feeling well; having significant discomfort d/t stomach distention. No gas present to the pouch; scant amt of effluent. Assisted pt to a seated position on the edge of the bed to facilitate belching to see if stomach discomfort could be alleviated. Pt did belch large amts of air and stated he felt better. Recommended he ambulate more frequently to help intestines recover from the surgical procedure. Pt stated he would initiate more frequent ambulation tomorrow with assistance from floor staff. Pt received pain medications and then was able to fall asleep. Spent approx one hr with the pt's mother beginning ostomy education. Ayaan her pictures and provided detailed information on GI function, what happens with formation of a stoma, and beginning discussion of how ostomy wafer is changed. Will plan to follow up with the pt tomorrow after clinic hours and change out the wafer with the mother's assistance. Pt will be staying at his mother's home for the initial recuperation period and will benefit from her receiving the ostomy care education as well. Spent 70 mins with the pt's mother and in charting. Results Lab Results: Laboratory Results Sodium 137 mmol/L (135-145) 10/21/24 05:26 Potassium 4.2 mmol/L (3.5-4.5) 10/21/24 05:26 Chloride 101 mmol/L (101-111) 10/21/24 05:26 Carbon Dioxide 31 mmol/L (21-32) 10/21/24 05:26 Anion Gap 5.0 (6-13) L 10/21/24 05:26 BUN 18 mg/dL (6-20) 10/21/24 05:26 Creatinine 0.8 mg/dL (0.6-1.3) 10/21/24 05:26 Glucose 108 mg/dL (74-104) H 10/21/24 05:26 Calcium 8.6 mg/dL (8.5-10.3) 10/21/24 05:26 Total Bilirubin 1.4 mg/dL (0.2-1.0) H 10/14/24 17:03 AST 34 IU/L (10-42) 10/14/24 17:03 ALT 41 IU/L (10-60) 10/14/24 17:03 Alkaline Phosphatase 57 IU/L (42-121) 10/14/24 17:03 Total Protein 7.6 g/dL (6.4-8.9) 10/14/24 17:03 Albumin 4.9 g/dL (3.2-5.5) 10/14/24 17:03 Globulin 2.7 g/dL (2.1-4.2) 10/14/24 17:03 Albumin/Globulin Ratio 1.8 (1.0-2.2) 10/14/24 17:03 10/15/24 21:00 Peritoneal Fluid Anaerobic Culture - Preliminary 10/15/24 21:00 Peritoneal Fluid Anaerobic Culture Result 1 - Preliminary 10/15/24 21:00 Peritoneal Fluid Aerobic Culture - Final 10/15/24 21:00 Peritoneal Fluid Aerobic Culture Result 1 - Final 10/15/24 21:00 Peritoneal Fluid Aerobic Culture Result 2 - Final 10/14/24 17:53 Blood - Right Arm Blood Culture - Final NO GROWTH AFTER 5 DAYS 10/14/24 17:42 Blood Blood Culture - Final NO GROWTH AFTER 5 DAYS Exam Exam Vital Signs: Vital Signs x48h Temp Pulse Resp BP Pulse Ox 10/21/24 15:59 36.7 C 66 18 138/79 H 94
[2024-10-22] MEDS: LACTATED RINGERS 1,000 ML IV SCH (00:23)
[2024-10-22 06:10] LABS: HCT - HEMATOCRIT 32.5 % (42.0-52.0); HGB - HEMOGLOBIN 10.6 g/dL (14.0-18.0); MEAN PLATELET VOLUME 9.4 fL (7.4-11.4); PLT - PLATELET COUNT 322 10^3/uL (130-450); RED CELL DISTRIBUTION WIDTH 13.0 % (12.0-15.0)
[2024-10-22 06:18] LABS: ABNORMAL LYMPHS % (MANUAL) 0 %; BASOPHILS # (MANUAL) 0.0 10^3/uL (0-0.1)
[2024-10-22] MEDS ORDERED: PROPOFOL 200 MG/20 ML VIAL IVP ONE (06:25)
[2024-10-22] MEDS ORDERED: LIDOCAINE-PF 2% 10 ML AMP SUBQ ONE (06:25)
[2024-10-22] MEDS ORDERED: ONDANSETRON 4 MG/2 ML VIAL ONE (06:25)
[2024-10-22] MEDS ORDERED: DEXAMETHASONE 4 MG/ML VIAL ONE (06:25)
[2024-10-22 06:27] LABS: BUN - BLOOD UREA NITROGEN 16.0 mg/dL (6-20); CARBON DIOXIDE - CO2 28.0 mmol/L (21-32); CREATININE 0.7 mg/dL (0.6-1.3); GFR - MDRD 129.0 (>89)
[2024-10-22] MEDS ORDERED: fentaNYL 100 MCG/2 ML VIAL ONE (06:27)
[2024-10-22] MEDS ORDERED: MIDAZOLAM 2 MG/2 ML VIAL ONE (06:28)
[2024-10-22 06:36] LABS: BAND NEUTROPHILS % (MANUAL) 21 %; EOSINOPHILS # (MANUAL) 1.0 10^3/uL (0-0.7); LYMPHOCYTES # (MANUAL) 1.5 10^3/uL (1.5-3.5); LYMPHOCYTES % (MANUAL) 8 %; MONOCYTES # (MANUAL) 0.6 10^3/uL (0.0-1.0); NEUTROPHILS # (MANUAL) 16.2 10^3/uL (1.5-6.6); PLATELET ESTIMATE, MANUAL NORMAL (130-450,000) (NORMAL); PLATELET MORPHOLOGY NORMAL APPEARANCE (NORMAL); RBC MORPHOLOGY (MULTIPLE) NORMAL APPEARANCE (NORMAL); WBC MORPHOLOGY (MULTIPLE) NORMAL APPEARANCE (NORMAL)
--- NOTE | 2024-10-22 09:01 | PROVIDER PROGRESS NOTE ---
Subjective General Admit Date: 10/14/24 Procedure Date: 10/15/24 Post Op Days: 7 Procedure Performed: open sigmoid colon rescection and end colostomy, washout Other Other Information/Narrative: Patient really struggling to sleep at night and having a hard time with pain control. He feels like the oral pills are not going down very well with just a sip of water and feels worse after taking them because they make him feel more bloated. He did get up and walk a little bit yesterday. Denies f/c. No vomiting. Ostomy working some. Wound vac seal much improved last night. Wound Assessment Wound/Incisions: positive Drainage Drain Type: Wound vac in place without drainage and excellent seal Exam Exam Vital Signs: Vital Signs x48h Temp Pulse Pulse Resp BP Pulse Ox O2 Flow Rate 10/22/24 08:22 97.7 F 78 16 134/75 H 94 10/22/24 07:36 2 10/22/24 07:36 84 18 10/22/24 01:35 97.3 F L 71 18 143/73 H 98 Vital Signs Temp 97.7 F 10/22/24 08:22 Pulse 78 10/22/24 08:22 Resp 16 10/22/24 08:22 BP 134/75 H 10/22/24 08:22 Pulse Ox 94 10/22/24 08:22 O2 Flow Rate 2 10/22/24 07:36 Intake & Output 10/21/24 10/21/24 10/22/24 11:59 23:59 11:59 Intake Total 100 / 420 320 / 420 100 / 100 Output Total 580 / 1455 875 / 1455 700 / 700 Balance -480 / -1035 -555 / -1035 -600 / -600 Intake: Intake, IV Amount (ml) 100 / 300 200 / 300 100 / 100 Piperacillin/Tazobactam 4.5 gm 100 / 300 200 / 300 100 / 100 In Sodium Chloride 0.9% Minibag 100 ml @ 25 mls/hr IV Q8H [facility] Rx#:[id number] Oral 120 / 120 Output: Drainage 30 55 / MARTÍNEZ Right Abdomen 30 / 40 40 / Right Abdomen / Urine 550 / 1400 850 / 1400 625 / 625 Stool Other: # Voids 1 % Meal consumed 0 bites Gen: patient mildly anxious and exhausted, alert and oriented CV: RRR Pulm: non labored, on RA Abd: soft, with mild diffuse ttp, ?mild distension, no r/g. wound vac in place with no significant output. MARTÍNEZ in place with 40mL serosang output in last 24 hours, significantly less than prior days. Ostomy pink and productive of gas and stool Ext: no c/c/e Impression/Plan Problem List (1) Sepsis: Plan: resolved, due to #2 (2) Perforation of sigmoid colon due to diverticulitis: Plan: 34 y/o M admitted with microperfoated diverticulitis, which progressed to kimberly perforation with free air and purulent peritonitis. POD # 7, Sigmoid colectomy, end descending colostomy, abdominal washout, drain placement Code Status: Full - delayed return of bowel function as expected given extent of disease and surgery needed, improving slowly. The patient's ostomy is productive of gas and stool today. NG removed. - Bcx negative after 5 days, fluid cx from surgery grew mutiple microbes, pathology pending - Wound vac in place (superficial) plan for change weekly (last changed 10/21). Consider delayed primary closure of the skin when leukocytosis improved, will cancel plan for closure today and continue wound vac at this time. If not closed prior to discharge, he will be discharged with vac and will need vac changes and supplies. - on IV zosyn - iniguez removed, voiding well - patient may take meds with bite of pudding or applesauce. - increase activity today - continue to encourage IS Ppx: SCD's, IS, lovenox (3) Leukocytosis: Plan: - leukocytosis continues to increase. Patient does not demonstrate signs of sepsis. CT from yesterday independently read and report reviewed. No undrained fluid collections or other intraabdominal infectious source identified. Agree with primary team's plan to look for other sources of infection including CXR for possible pneumonia, UA for UTI. - agree with discussion with pharmacy to consider changing antibiotics to cipro/flagyl for better anaerobic coverage, given increasing leukocytosis with zosyn
[2024-10-22 10:05] LABS: GLUCOSE, URINE (UA) NEGATIVE (NEGATIVE); KETONES,URINE (UA) 80 mg/dL (NEGATIVE); OCCULT BLOOD,URINE NEGATIVE (NEGATIVE)
[2024-10-22 10:08] LABS: SQUAMOUS EPITHELIAL CELL,UR RARE Squamous (<= Few)
--- NOTE | 2024-10-22 11:47 | XRAY Report ---
PROCEDURE: XR Chest 1V INDICATIONS: elevated wbc in post op pt TECHNIQUE: One view of the chest was acquired. COMPARISON: Lung bases on CT 10/21/2024. CXR 10/18/2024. FINDINGS: Surgical changes and devices: None. Lungs and pleura: Small right pleural effusion. No pneumothorax. Prominent pulmonary markings. Streaky opacity bilaterally. Mediastinum: Mediastinal contours appear unchanged. Asymmetric elevation of the right hemidiaphragm. Heart size is normal. Bones and chest wall: No suspicious bony lesions. Overlying soft tissues appear unremarkable. IMPRESSION: Small right pleural effusion. Bilateral streaky opacities. Most likely atelectasis. However, fluid overload or infectious/inflammatory etiology on the differential diagnosis. Reviewed by: Qasim Holman MD on 10/22/2024 11:46 AM PDT Approved by: Qasim Holman MD on 10/22/2024 11:46 AM PDT Station ID: [id number]
[2024-10-22] MEDS ORDERED: KETOROLAC 30 MG/ML VIAL IVP SCH (12:00)
[2024-10-22] MEDS: KETOROLAC 15 MG/ML VIAL IVP SCH (12:10)
[2024-10-22] MEDS: ACETAMINOPHEN 1,000 MG/100 ML 1,000 MG/100 ML BAG IV SCH (12:10)
--- NOTE | 2024-10-22 14:51 | PROVIDER PROGRESS NOTE ---
Subjective Prog Note Date Prog Note Date: 10/22/24 Subjective Subjective: Still having lots of pain. no fever and otherwise without complaints, aside from his abdominal pain. intermittently complains of being ravenous, then gets distended and has epigastric abdominal pain. This afternoon he is asking me for "real food". I ordered full liquid diet, and he really was not able to eat. had no appetite. Current Medications Current Medications Current Medications: Current Medications Generic Name Dose Route Start Last Admin Trade Name Freq PRN Reason Stop Dose Admin Albuterol 2.5 mg 10/15/24 23:36 10/22/24 07:34 Albuterol Neb 2.5 Mg/3 Ml INH 2.5 mg RTQ4H PRN Administration Wheezing Budesonide 0.5 mg 10/16/24 07:00 10/22/24 07:35 Budesonide 0.5 Mg/2 Ml Neb INH 0.5 mg RTBID DANIEL Administration Calcium Carbonate/Glycine 500 mg 10/17/24 11:57 10/17/24 12:05 Calcium Carbonate Chew 500 Mg Tablet PO 500 mg BID PRN Administration Heartburn Formoterol Fumarate 20 mcg 10/16/24 07:00 10/22/24 07:35 Formoterol Fumarate Neb 20 Mcg/2 Ml INH 20 mcg RTBID DANIEL Administration Gabapentin 300 mg 10/18/24 12:00 10/22/24 14:18 Gabapentin 300 Mg Capsule PO 300 mg TID DANIEL Administration Hydromorphone HCl 1 mg 10/21/24 16:46 10/22/24 08:26 Hydromorphone 1 Mg/Ml Carpuject IVP 1 mg Q2H PRN Administration Severe Pain (Level 7-10) Acetaminophen 1,000 mg in 100 mls @ 400 mls/hr 10/22/24 12:00 10/22/24 12:35 Acetaminophen IV Infused Q6HR DANIEL Infusion Ciprofloxacin 400 mg in 200 mls @ 200 mls/hr 10/22/24 15:00 Cipro 400 Mg/200 Ml IV 0600,1800 DANIEL Metronidazole 500 mg in 100 mls @ 100 mls/hr 10/22/24 15:00 Flagyl 500 Mg/100 Ml IV Q8HR DANIEL Ketorolac Tromethamine 15 mg 10/22/24 12:00 10/22/24 12:10 Ketorolac 15 Mg/Ml Vial IVP 10/26/24 06:01 15 mg Q6HR DANIEL Administration Lorazepam 0.5 mg 10/14/24 20:21 10/22/24 12:09 Lorazepam 2 Mg/Ml Vial IVP 0.5 mg Q2H PRN Administration Anxiety Methocarbamol 500 mg 10/18/24 12:00 10/22/24 12:10 Methocarbamol 500 Mg Tablet PO 500 mg Q6HR DANIEL Administration Metoclopramide HCl 5 mg 10/20/24 19:31 10/20/24 20:07 Metoclopramide 10 Mg/2 Ml Vial IVP 5 mg Q6HR PRN Administration Nausea / Vomiting Ondansetron HCl 4 mg 10/14/24 20:21 10/22/24 04:26 Ondansetron 4 Mg/2 Ml Vial IVP 4 mg Q6HR PRN Administration Nausea / Vomiting Oxycodone HCl 7.5 mg 10/20/24 11:00 10/22/24 11:12 Oxycodone 5 Mg Tablet PO 7.5 mg Q4H DANIEL Administration Pantoprazole Sodium 40 mg 10/17/24 12:00 10/22/24 06:25 Pantoprazole 40 Mg Tablet PO 40 mg QDAC DANIEL Administration Phenol/Menthol 2 sprays 10/19/24 09:23 Phenol Throat [place] 177 Ml MM Q4HR PRN Mouth Sore Pain Phenol/Menthol 2 sprays 10/19/24 09:36 10/19/24 20:25 Phenol Throat [place] 177 Ml MM 2 sprays Q2HR PRN Administration Throat Pain Prochlorperazine Edisylate 10 mg 10/18/24 14:43 10/20/24 22:02 Prochlorperazine 10 Mg/2 Ml Vial IVP 10 mg Q6HR PRN Administration Nausea / Vomiting Sodium Chloride 10 ml 10/14/24 20:21 10/20/24 11:07 Sodium Chloride Flush 0.9% 10 Ml Syringe IVP 10 ml PRN PRN Administration NEEDED PER PROVIDER ORDERS Sodium Chloride 10 ml 10/15/24 01:00 10/22/24 08:27 Sodium Chloride Flush 0.9% 10 Ml Syringe IVP 10 ml 0100,0900,1700 DANIEL Administration Throat Lozenges 1 lozenge 10/16/24 05:25 10/16/24 06:20 Benzocaine/Menthol Lozenge MM 1 lozenge Q2HR PRN Administration Throat pain Trazodone HCl 50 mg 10/18/24 21:37 10/22/24 00:17 Trazodone 50 Mg Tablet PO 50 mg QPM PRN Administration sleep Objective Vital Signs/Intake & Output Reviewed Vital Signs: Yes Vital Signs: Vital Signs x48h Temp Pulse Pulse Resp BP Pulse Ox O2 Flow Rate 10/22/24 08:22 36.5 C 78 16 134/75 H 94 10/22/24 07:36 2 10/22/24 07:36 84 18 Intake & Output: Intake & Output 10/19/24 10/20/24 10/21/24 10/22/24 23:59 23:59 23:59 23:59 Intake Total 2492 / 2492 2248 / 2248 420 / 420 1540 / 1540 Output Total 2835 / 2835 2415 / 2415 1455 / 1455 1215 / 1215 Balance -343 / -343 -167 / -167 -1035 / -1035 325 / 325 Objective General Appearance: positive Mild distress and Anxious Eyes Bilateral: positive Normal inspection ENT: positive ENT inspection nml Neck: positive Nml inspection Respiratory: positive No respiratory distress and Breath sounds nml Cardiovascular: positive Regular rate & rhythm Abdomen: positive Other (stoma pink with stool in the bag. ) Skin: positive Color nml Extremities: positive Non-tender Neurologic/Psychiatric: positive Oriented x3 Comments/Other: . Lab Results 10/22/24 05:05 10/22/24 05:05 Other Labs: Lab Results x24hrs 10/22/24 10/22/24 Range/Units 09:15 05:05 WBC 19.3 H (4.8-10.8) x10^3/uL RBC 3.57 L (4.70-6.10) 10^6/uL Hgb 10.6 L (14.0-18.0) g/dL Hct 32.5 L (42.0-52.0) % MCV 91.0 (80.0-94.0) fL MCH 29.7 (27.0-31.0) pg MCHC 32.6 (32.0-36.0) g/dL RDW 13.0 (12.0-15.0) % Plt Count 322 (130-450) 10^3/uL MPV 9.4 (7.4-11.4) fL Neut # (Auto) Not Reportable Lymph # (Auto) Not Reportable [place] # (Auto) Not Reportable Eos # (Auto) Not Reportable Baso # (Auto) Not Reportable Absolute Nucleated RBC Not Reportable Total Counted 100 Band Neuts % (Manual) 21 H (0 - 10) % Abnorm Lymph % (Manual) 0 % Nucleated RBC % Not Reportable Neutrophils # (Manual) 16.2 H (1.5-6.6) 10^3/uL Lymphocytes # (Manual) 1.5 (1.5-3.5) 10^3/uL Monocytes # (Manual) 0.6 (0.0-1.0) 10^3/uL Eosinophils # (Manual) 1.0 H (0-0.7) 10^3/uL Basophils # (Manual) 0.0 (0-0.1) 10^3/uL Differential Comment MANUAL DIFFERENTIAL WBC Morphology NORMAL APPEARANCE (NORMAL) Platelet Estimate NORMAL (130-450,000) (NORMAL) Platelet Morphology NORMAL APPEARANCE (NORMAL) RBC Morph Micro Appear NORMAL APPEARANCE (NORMAL) Sodium 135 (135-145) mmol/L Potassium 4.0 (3.5-4.5) mmol/L Chloride 101 (101-111) mmol/L Carbon Dioxide 28 (21-32) mmol/L Anion Gap 6.0 (6-13) BUN 16 (6-20) mg/dL Creatinine 0.7 (0.6-1.3) mg/dL Estimated GFR (MDRD) 129 (>89) Glucose 97 (74-104) mg/dL Calcium 8.5 (8.5-10.3) mg/dL Urine Color DARK YELLOW Urine Clarity CLEAR (CLEAR) Urine pH 6.0 (5.0-7.5) PH Ur Specific [place] 1.030 (1.002-1.030) Urine Protein NEGATIVE (NEGATIVE) mg/dL Urine Glucose (UA) NEGATIVE (NEGATIVE) mg/dL Urine Ketones 80 (NEGATIVE) mg/dL Urine Occult Blood NEGATIVE (NEGATIVE) Urine Nitrite NEGATIVE (NEGATIVE) Urine Bilirubin SMALL H (NEGATIVE) Urine Urobilinogen 0.2 (NORMAL) (NORMAL) E.U./dL Ur Leukocyte Esterase NEGATIVE (NEGATIVE) Urine RBC 0-5 (0-5) /HPF Urine WBC 0-3 (0-3) /HPF Ur Squamous Epith Cells RARE Squamous (<= Few) Urine Bacteria Few (None Seen) /HPF Urine Culture Comments NOT INDICATED Assessment/Plan Problem List (1) Sepsis: Impression: Sepsis secondary to bowel perforation Blood cultures without growth x 5 days. WBC 19.3 today, trend has not favorable. Laboratory Tests 10/18/24 10/19/24 10/20/24 05:11 05:24 04:32 WBC 16.9 H 15.6 H 15.6 H 10/21/24 05:26 WBC 16.2 H We are changing his antibiotics to cipro and flagyl due to rising WBC. This evening he has had a temp of 99.5, techincally not a fever, but this in the setting of scheduled tylenol. Manage bowel Perforation as below (2) Perforation of sigmoid colon due to diverticulitis: Impression: OR on 10/15 for ex lap with colon resection and colostomy. POD #7 vac change 10/23. He is on full liquid diet, but not eating. There is stool in the stoma bag. CT has not shown any abscess. Managing pain in conjunction with general surgery Pain meds: needing IV Dilaudid and IV nausea control. He is on scheduled po oxycodone every 4 hours as well. Wound vac has been very effective. there has been no additional bleeding from the wound. General surgery, Dr Cazares, is recommending leaving the wound vac in place for one week. General surgery deciding how to manage wound closure, may do delayed primary closure with Prevena. discussed with Dr Cazares today. has been out of bed walking today, but got too tired and had to sit in chair and be wheeled back to his room. (3) Leukocytosis: Impression: This evening, on scheduled APAP he had a temp of 99.5. could be indicative of a fever. I am rechecking a CBC in the AM. I have checked one view CXR, and findings suspicious for bilat streaky opacities, likely atelectasis, not surprising given his clinical picture. cannot rule out fluid overload, infectious/inflammatory. small right pleural effusion- new elevation of the right hemidiaphragm. Awaiting read on the 2 view XR I have spent 52 minutes in the care of this patient today. This includes time [id number], review and ordering of diagnostic imaging and laboratory studies and consultation with other providers. Monitoring the patient's signs symptoms, evaluation of medication effectiveness and patient's response to treatment.
[2024-10-22] MEDS: CIPROFLOXACIN 400 MG/200 ML 400 MG/200 ML BAG IV SCH (15:01)
[2024-10-23 05:56] LABS: HCT - HEMATOCRIT 34.2 % (42.0-52.0); HGB - HEMOGLOBIN 10.7 g/dL (14.0-18.0); MEAN PLATELET VOLUME 9.4 fL (7.4-11.4); PLT - PLATELET COUNT 376 10^3/uL (130-450); RED CELL DISTRIBUTION WIDTH 13.2 % (12.0-15.0)
[2024-10-23 06:05] LABS: ABNORMAL LYMPHS % (MANUAL) 0 %; BASOPHILS # (MANUAL) 0.0 10^3/uL (0-0.1)
[2024-10-23 06:16] LABS: BUN - BLOOD UREA NITROGEN 12.0 mg/dL (6-20); CARBON DIOXIDE - CO2 29.0 mmol/L (21-32); CREATININE 0.8 mg/dL (0.6-1.3); GFR - MDRD 111.0 (>89)
[2024-10-23 06:37] LABS: BAND NEUTROPHILS % (MANUAL) 9 %; EOSINOPHILS # (MANUAL) 0.4 10^3/uL (0-0.7); LYMPHOCYTES # (MANUAL) 1.3 10^3/uL (1.5-3.5); LYMPHOCYTES % (MANUAL) 6 %; METAMYELOCYTES % (MANUAL) 1 %; MONOCYTES # (MANUAL) 1.5 10^3/uL (0.0-1.0); MYELOCYTES % (MANUAL) 1 %; NEUTROPHILS # (MANUAL) 17.5 10^3/uL (1.5-6.6); PLATELET ESTIMATE, MANUAL NORMAL (130-450,000) (NORMAL); PLATELET MORPHOLOGY NORMAL APPEARANCE (NORMAL); RBC MORPHOLOGY (MULTIPLE) NORMAL APPEARANCE (NORMAL); WBC MORPHOLOGY (MULTIPLE) NORMAL APPEARANCE (NORMAL)
[2024-10-23] MEDS: ENOXAPARIN 40 MG/0.4 ML SYRINGE SUBQ SCH (08:13)
[2024-10-23] MEDS: MULTIVITAMIN W/MINERALS TABLET PO SCH (10:30)
--- NOTE | 2024-10-23 11:45 | PROVIDER PROGRESS NOTE ---
Subjective General Admit Date: 10/14/24 Procedure Date: 10/15/24 Post Op Days: 8 Procedure Performed: open sigmoid colon rescection and end colostomy, washout Other Other Information/Narrative: Mother at bedside for the entire visit. His performance on the incentive spirometer was only about 1000 mL which is inadequate. 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 Wound Assessment Wound/Incisions: positive Drainage Drain Type: Wound vac in place without drainage and excellent seal Review of Systems Status of ROS: 10 or more systems reviewed and unremarkable except as noted in history and below Constitutional Reports: Fatigue, Chills, Malaise, Weakness and Diaphoresis Cardiovascular Denies: shortness of breath with exertion Respiratory Denies: Shortness of breath or Cough Gastrointestinal Reports: Abdominal pain and Nausea; Denies: Vomiting Endocrine Reports: Fatigue Exam Exam General: 34-year-old male, appears stated age, appears slightly somnolent, covered with only a sheet, has a fan blowing on him HEENT: Normocephalic, atraumatic, extraocular movement intact, mucous membranes pink and moist, sclera anicteric and not injected Neck: Supple without pain on palpation, mass or bruit Cardiac: Regular rate and rhythm without rub, gallop, or murmur Chest: Fine crackles anteriorly bilaterally with coarse breath sounds laterally with the right worse than the left. Abdomen: Decreased bowel sounds, slightly distended, wound VAC in place and functioning well without leak, drain with serosanguineous drainage, no peritoneal findings Genitourinary: Deferred Rectal: Deferred Extremities: No gross neurovascular problem, no clubbing, cyanosis or edema Gait: No gross motor deficit Psychiatric: Alert and oriented to person place and time, asks and answers questions appropriately, mood and affect appropriate ABX Reporting Has patient been on IV antibiotics over the past 48 hours?: Yes Impression/Plan Problem List (1) Sepsis: (2) Perforation of sigmoid colon due to diverticulitis: (3) Leukocytosis: Plan Postop day 8 status post sigmoidectomy with end colostomy and Montes's pouch, extensive abdominal washout and placement of a drain ID) Patient is obviously at a risk for an intra-abdominal infection due to the spillage of his abdominal contents requiring surgery. Patient switched to ciprofloxacin and metronidazole. White blood cell count is elevated and continues to climb. The CT scan was unrevealing of any reason for the elevated white blood cell count. I explained to the patient that lungs could be a source as well as the bladder. Labs have been ordered for the morning. In order to combat atelectasis I explained to the patient in fact showed him how to use the incentive spirometer and explained that he should be achieving 2 L every single time. This will be helped by being out of bed and sitting up. I encouraged this and encouraged his mom to get involved in motivating him. I had the patient cough and he actually did quite well but it was not productive of sputum. FEN) Switch to regular diet as there is no reason for a modified diet. Wound) Continue wound VAC. The reasoning behind the wound VAC was explained to the patient's mother at her request. Activity) I again stressed the importance of the patient being out of bed for the majority of the day. I would like to have him either seated or walking. PT has been involved and everything that they can do to increase his strength and encouraged him will be appreciated. Again incentive spirometry was stressed. Pain) Good control with current regimen.
--- NOTE | 2024-10-23 14:40 | PROVIDER PROGRESS NOTE ---
Subjective Prog Note Date Prog Note Date: 10/23/24 Subjective Subjective: crampy abdominal pain, feels poorly. does not want to eat, then vomited. Did eat about 3 bites of a ham and cheese breakfast sandwich this AM. vomited several hours later. Current Medications Current Medications Current Medications: Current Medications Generic Name Dose Route Start Last Admin Trade Name Freq PRN Reason Stop Dose Admin Albuterol 2.5 mg 10/15/24 23:36 10/22/24 20:42 Albuterol Neb 2.5 Mg/3 Ml INH 2.5 mg RTQ4H PRN Administration Wheezing Budesonide 0.5 mg 10/16/24 07:00 10/23/24 07:50 Budesonide 0.5 Mg/2 Ml Neb INH Not Given RTBID DANIEL Calcium Carbonate/Glycine 500 mg 10/17/24 11:57 10/17/24 12:05 Calcium Carbonate Chew 500 Mg Tablet PO 500 mg BID PRN Administration Heartburn Enoxaparin Sodium 40 mg 10/23/24 09:00 10/23/24 08:13 Enoxaparin 40 Mg/0.4 Ml Syringe SUBQ 40 mg DAILY DANIEL Administration Formoterol Fumarate 20 mcg 10/16/24 07:00 10/23/24 07:50 Formoterol Fumarate Neb 20 Mcg/2 Ml INH Not Given RTBID DANIEL Gabapentin 300 mg 10/18/24 12:00 10/23/24 06:07 Gabapentin 300 Mg Capsule PO 300 mg TID DANIEL Administration Hydromorphone HCl 1 mg 10/21/24 16:46 10/23/24 13:35 Hydromorphone 1 Mg/Ml Carpuject IVP 1 mg Q2H PRN Administration Severe Pain (Level 7-10) Acetaminophen 1,000 mg in 100 mls @ 400 mls/hr 10/22/24 12:00 10/23/24 12:27 Acetaminophen IV 400 mls/hr Q6HR DANIEL Administration Ciprofloxacin 400 mg in 200 mls @ 200 mls/hr 10/22/24 15:00 10/23/24 07:45 Cipro 400 Mg/200 Ml IV Infused 0600,1800 DANIEL Infusion Metronidazole 500 mg in 100 mls @ 100 mls/hr 10/23/24 10:00 10/23/24 11:35 Flagyl 500 Mg/100 Ml IV Infused Q8H DANIEL Infusion Ketorolac Tromethamine 15 mg 10/22/24 12:00 10/23/24 12:10 Ketorolac 15 Mg/Ml Vial IVP 10/26/24 06:01 15 mg Q6HR DANIEL Administration Lorazepam 0.5 mg 10/14/24 20:21 10/23/24 13:35 Lorazepam 2 Mg/Ml Vial IVP 0.5 mg Q2H PRN Administration Anxiety Methocarbamol 500 mg 10/18/24 12:00 10/23/24 12:10 Methocarbamol 500 Mg Tablet PO 500 mg Q6HR DANIEL Administration Metoclopramide HCl 5 mg 10/20/24 19:31 10/23/24 08:18 Metoclopramide 10 Mg/2 Ml Vial IVP 5 mg Q6HR PRN Administration Nausea / Vomiting Multivitamins/Minerals 1 tab 10/23/24 09:00 10/23/24 10:30 Multivitamin W/Minerals Tablet PO 1 tab DAILYWM DANIEL Administration Ondansetron HCl 4 mg 10/14/24 20:21 10/23/24 10:54 Ondansetron 4 Mg/2 Ml Vial IVP 4 mg Q6HR PRN Administration Nausea / Vomiting Oxycodone HCl 7.5 mg 10/20/24 11:00 10/23/24 10:30 Oxycodone 5 Mg Tablet PO 7.5 mg Q4H DANIEL Administration Pantoprazole Sodium 40 mg 10/17/24 12:00 10/23/24 06:07 Pantoprazole 40 Mg Tablet PO 40 mg QDAC DANIEL Administration Phenol/Menthol 2 sprays 10/19/24 09:23 Phenol Throat [place] 177 Ml MM Q4HR PRN Mouth Sore Pain Phenol/Menthol 2 sprays 10/19/24 09:36 10/19/24 20:25 Phenol Throat [place] 177 Ml MM 2 sprays Q2HR PRN Administration Throat Pain Prochlorperazine Edisylate 10 mg 10/18/24 14:43 10/23/24 12:25 Prochlorperazine 10 Mg/2 Ml Vial IVP 10 mg Q6HR PRN Administration Nausea / Vomiting Sodium Chloride 10 ml 10/14/24 20:21 10/20/24 11:07 Sodium Chloride Flush 0.9% 10 Ml Syringe IVP 10 ml PRN PRN Administration NEEDED PER PROVIDER ORDERS Sodium Chloride 10 ml 10/15/24 01:00 10/23/24 08:13 Sodium Chloride Flush 0.9% 10 Ml Syringe IVP 10 ml 0100,0900,1700 DANIEL Administration Throat Lozenges 1 lozenge 10/16/24 05:25 10/16/24 06:20 Benzocaine/Menthol Lozenge MM 1 lozenge Q2HR PRN Administration Throat pain Trazodone HCl 50 mg 10/18/24 21:37 10/22/24 00:17 Trazodone 50 Mg Tablet PO 50 mg QPM PRN Administration sleep Objective Vital Signs/Intake & Output Reviewed Vital Signs: Yes Intake & Output: Intake & Output 10/20/24 10/21/24 10/22/24 10/23/24 23:59 23:59 23:59 23:59 Intake Total 2248 / 2248 420 / 420 2640 / 2640 840 / 840 Output Total 2415 / 2415 1455 / 1455 2355 / 2355 620 / 620 Balance -167 / -167 -1035 / -1035 285 / 285 220 / 220 Objective General Appearance: positive No acute distress Eyes Bilateral: positive Normal inspection and Conjunctivae nml ENT: positive ENT inspection nml Neck: positive Nml inspection Respiratory: positive No respiratory distress and Breath sounds nml Cardiovascular: positive Regular rate & rhythm Abdomen: positive Other (vac in place, minimal drainage. stoma with copious output. ) Back: positive Nml inspection Skin: positive Pallor (slight. ) Extremities: positive Non-tender and No pedal edema Neurologic/Psychiatric: positive Oriented x3 Lab Results 10/23/24 05:22 10/23/24 05:22 Other Labs: Lab Results x24hrs 10/23/24 Range/Units 05:22 WBC 21.1 H (4.8-10.8) x10^3/uL RBC 3.68 L (4.70-6.10) 10^6/uL Hgb 10.7 L (14.0-18.0) g/dL Hct 34.2 L (42.0-52.0) % MCV 92.9 (80.0-94.0) fL MCH 29.1 (27.0-31.0) pg MCHC 31.3 L (32.0-36.0) g/dL RDW 13.2 (12.0-15.0) % Plt Count 376 (130-450) 10^3/uL MPV 9.4 (7.4-11.4) fL Neut # (Auto) Not Reportable Lymph # (Auto) Not Reportable [place] # (Auto) Not Reportable Eos # (Auto) Not Reportable Baso # (Auto) Not Reportable Absolute Nucleated RBC Not Reportable Total Counted 100 Band Neuts % (Manual) 9 (0 - 10) % Abnorm Lymph % (Manual) 0 % Metamyelocytes % 1 H ( - 0) % Myelocytes % 1 H ( - 0) % Nucleated RBC % Not Reportable Neutrophils # (Manual) 17.5 H (1.5-6.6) 10^3/uL Lymphocytes # (Manual) 1.3 L (1.5-3.5) 10^3/uL Monocytes # (Manual) 1.5 H (0.0-1.0) 10^3/uL Eosinophils # (Manual) 0.4 (0-0.7) 10^3/uL Basophils # (Manual) 0.0 (0-0.1) 10^3/uL Differential Comment MANUAL DIFFERENTIAL WBC Morphology NORMAL APPEARANCE (NORMAL) Platelet Estimate NORMAL (130-450,000) (NORMAL) Platelet Morphology NORMAL APPEARANCE (NORMAL) RBC Morph Micro Appear NORMAL APPEARANCE (NORMAL) Sodium 133 L (135-145) mmol/L Potassium 4.1 (3.5-4.5) mmol/L Chloride 99 L (101-111) mmol/L Carbon Dioxide 29 (21-32) mmol/L Anion Gap 5.0 L (6-13) BUN 12 (6-20) mg/dL Creatinine 0.8 (0.6-1.3) mg/dL Estimated GFR (MDRD) 111 (>89) Glucose 104 (74-104) mg/dL Calcium 8.2 L (8.5-10.3) mg/dL ABX Reporting Has patient been on IV antibiotics over the past 48 hours?: Yes Assessment/Plan Problem List (1) Sepsis: Impression: Sepsis secondary to bowel perforation Blood cultures without growth x 5 days. WBC 21.1 today, trend has not favorable- continues to rise despite change in abx tx. Laboratory Tests 10/20/24 10/21/24 10/22/24 04:32 05:26 05:05 WBC 15.6 H 16.2 H 19.3 H 10/23/24 05:22 WBC 21.[address] Roa of general surgery. he has had about 1.5L out of colostomy this afternoon. he is not feeling well at all. Crampy abdominal pain and nausea. He has a hx of UC, and was taking mesalamine up until he got acutely ill with this ruptured diverticulitis. he sees GI at least annually. (2) Perforation of sigmoid colon due to diverticulitis: Impression: OR on 10/15 for ex lap with colon resection and colostomy. POD #8 vac change 10/21- to be left in place for one week per general surgery. He is on full liquid diet, but not eating. There is stool in the stoma bag. CT has not shown any abscess. Managing pain in conjunction with general surgery Pain meds: needing IV Dilaudid and IV nausea control. He is on scheduled po oxycodone every 4 hours as well. Wound vac has been very effective. there has been no additional bleeding from the wound. General surgery, Dr Cazares, is recommending leaving the wound vac in place for one week. General surgery deciding how to manage wound closure, may do delayed primary closure with Prevena. Does not feel well today. has not been up. has had significant stoma OP, and now vomting this afternoon. Discussed with General surgery, and planning to place NGT this afternoon. I will also be sending stool for C diff immediately. I will start Fidaxomycin if needed. (3) Leukocytosis: Impression: Rising WBC. Looking at C diff as a potential cause. I have sent stool cultures as well as C diff PCR. I have checked one view CXR, and findings suspicious for bilat streaky opacities, likely atelectasis, not surprising given his clinical picture. cannot rule out fluid overload, infectious/inflammatory. small right pleural effusion- new elevation of the right hemidiaphragm. Awaiting read on the 2 view XR (have placed a call to [employer] [facility])- XR done 24 h ago (4) History of chronic ulcerative colitis: Impression: He was on mesalamine until approx 2 weeks ago, stopped taking it as he was feeling poorly. I have also sent fecal calprotectin. This is a marker for intestinal inflammation, so surely will be elevated in C diff as well. This patient's diagnosis and treatment plan was discussed this AM with attending physician as a part of multi disciplinary rounding meeting. I have spent 55 minutes in the care of this patient today. This includes time [id number], review and ordering of diagnostic imaging and laboratory studies and consultation with other providers. Monitoring the patient's signs symptoms, evaluation of medication effectiveness and patient's response to treatment.
[2024-10-23] MEDS ORDERED: PHENOL THROAT SPRAY 177 ML MM PRN (14:58)
--- NOTE | 2024-10-23 15:12 | XRAY Report ---
PROCEDURE: XR Chest 2V INDICATIONS: elevated WBC, no other infectious source TECHNIQUE: 2 views of the chest were acquired. COMPARISON: Chest x-ray 10/22/2024 FINDINGS: Surgical changes and devices: None. Lungs and pleura: Persistent appearance of mild increased pulmonary markings. Right hemidiaphragm elevation is unchanged. Minimal right effusion, unchanged. Mediastinum: Mediastinal contours appear normal. Heart size is normal. Bones and chest wall: No suspicious bony lesions. Overlying soft tissues appear unremarkable. IMPRESSION: Stable interval exam with minimal right effusion and increased pulmonary markings. Reviewed by: Marilynn Farfan MD on 10/23/2024 3:11 PM PDT Approved by: Marilynn Farfan MD on 10/23/2024 3:11 PM PDT Station ID: [id number]
[2024-10-23] MEDS: PROCHLORPERAZINE 10 MG/2 ML VIAL IVP ONE (15:41)
[2024-10-23 15:45] LABS: PHOSPHORUS 3.8 mg/dL (2.5-5.0)
[2024-10-23] MEDS: LIDOCAINE 2% URO-JET 5 ML SYRINGE UR ONE (15:58)
--- NOTE | 2024-10-23 18:00 | XRAY Report ---
PROCEDURE: XR No-Charge 1V Abdomen INDICATIONS: NG placement TECHNIQUE: 1 view of the abdomen were acquired. COMPARISON: 10/22/2024 FINDINGS: Surgical changes and devices: Gastric tube tip and side-port project over the stomach. Bowel: The bowel gas pattern is normal. Stool load within normal limits. Soft tissues: No masses; visualized solid organ contours appear normal in size. No suspicious abdominal calcifications. Small right pleural effusion. Cardiomegaly. Bones: No suspicious bony abnormalities. IMPRESSION: Gastric tube tip and side-port project over the stomach. Reviewed by: Jacky Fry MD on 10/23/2024 5:58 PM PDT Approved by: Jacky Fry MD on 10/23/2024 5:58 PM PDT Station ID: [id number]
[2024-10-23 18:43] LABS: OCCULT BLOOD,URINE NEGATIVE (NEGATIVE)
[2024-10-23 18:44] LABS: GLUCOSE, URINE (UA) NEGATIVE (NEGATIVE); KETONES,URINE (UA) 15 mg/dL (NEGATIVE); SQUAMOUS EPITHELIAL CELL,UR RARE Squamous (<= Few)
[2024-10-23] MEDS ORDERED: FIDAXOMICIN 200 MG TABLET PO SCH (21:00)
[2024-10-23] MEDS: PHENOL THROAT SPRAY 177 ML MM PRN (21:15)
[2024-10-23] MEDS: PPN (CLINIMIX E 4.25/5) 2,000 ML with MULTIVITAMIN 10 ML, TRACE ELEMENTS 1 ML IV SCH (21:50)
[2024-10-23] MEDS: FAT EMULSION 20% 250 ML IV SCH (21:50)
[2024-10-24 05:54] LABS: HCT - HEMATOCRIT 34.6 % (42.0-52.0); HGB - HEMOGLOBIN 11.3 g/dL (14.0-18.0); MEAN PLATELET VOLUME 9.3 fL (7.4-11.4); PLT - PLATELET COUNT 426 10^3/uL (130-450); RED CELL DISTRIBUTION WIDTH 12.9 % (12.0-15.0)
[2024-10-24 06:03] LABS: ABNORMAL LYMPHS % (MANUAL) 0 %
[2024-10-24 06:21] LABS: ALT ALANINE AMINOTRANSFERASE 29.0 IU/L (10-60); AST ASPARTATE AMINOTRANSFERASE 21.0 IU/L (10-42); BUN - BLOOD UREA NITROGEN 14.0 mg/dL (6-20); CARBON DIOXIDE - CO2 28.0 mmol/L (21-32); CREATININE 0.7 mg/dL (0.6-1.3); GFR - MDRD 129.0 (>89)
[2024-10-24 06:36] LABS: BAND NEUTROPHILS % (MANUAL) 4 %; BASOPHILS # (MANUAL) 0.2 10^3/uL (0-0.1); BASOPHILS % (MANUAL) 1 %; EOSINOPHILS # (MANUAL) 0.6 10^3/uL (0-0.7); LYMPHOCYTES # (MANUAL) 2.3 10^3/uL (1.5-3.5); LYMPHOCYTES % (MANUAL) 12 %; MONOCYTES # (MANUAL) 1.2 10^3/uL (0.0-1.0); MYELOCYTES % (MANUAL) 1 %; NEUTROPHILS # (MANUAL) 14.9 10^3/uL (1.5-6.6); PLATELET ESTIMATE, MANUAL NORMAL (130-450,000) (NORMAL); PLATELET MORPHOLOGY NORMAL APPEARANCE (NORMAL); RBC MORPHOLOGY (MULTIPLE) NORMAL APPEARANCE (NORMAL); WBC MORPHOLOGY (MULTIPLE) NORMAL APPEARANCE (NORMAL)
--- NOTE | 2024-10-24 10:27 | PROVIDER PROGRESS NOTE ---
Subjective General Admit Date: 10/14/24 Procedure Date: 10/15/24 Post Op Days: 9 Procedure Performed: open sigmoid colon rescection and end colostomy, washout Wound Assessment Wound/Incisions: positive Drainage Drain Type: Wound vac in place without increased drainage and excellent seal Review of Systems Both the patient and his mother expressed concerns about the care here at [facility]. Status of ROS: 10 or more systems reviewed and unremarkable except as noted in history and below Exam Exam Vital Signs: Vital Signs x48h Pulse Resp 10/24/24 08:51 73 20 General: 34-year-old male, appears stated age, appears slightly somnolent, covered with only a sheet, has a fan blowing on him HEENT: Normocephalic, atraumatic, extraocular movement intact, mucous membranes pink and moist, sclera anicteric and not injected Neck: Supple without pain on palpation, mass or bruit Cardiac: Regular rate and rhythm without rub, gallop, or murmur Chest: Fine crackles anteriorly bilaterally with coarse breath sounds laterally with the right worse than the left, but improved since yesterday Abdomen: Decreased bowel sounds, slightly distended, wound VAC in place and functioning well without leak, drain with serosanguineous drainage, no peritoneal findings, ostomy pink and productive Genitourinary: Deferred Rectal: Deferred Extremities: No gross neurovascular problem, no clubbing, cyanosis or edema Gait: Not evaluated as I did not see him ambulate today. Psychiatric: Alert and oriented to person place and time, asks and answers questions appropriately, mood and affect appropriate ABX Reporting Has patient been on IV antibiotics over the past 48 hours?: Yes Impression/Plan Problem List (1) Sepsis: (2) Perforation of sigmoid colon due to diverticulitis: (3) Leukocytosis: (4) History of chronic ulcerative colitis: Plan Postop day 9 status post sigmoidectomy with end colostomy and Montes's pouch, extensive abdominal washout and placement of a drain ID) Patient is obviously at a risk for an intra-abdominal infection due to the spillage of his abdominal contents requiring surgery. Patient switched to ciprofloxacin and metronidazole. White blood cell count is elevated and decreased today but is still markedly elevated. The recent CT scan was unrevealing of any reason for the elevated white blood cell count. The patient presents a conundrum in the sense that he has been diagnosed with ulcerative colitis and was on mesalamine prior to his admission to the hospital. The question is how best to deal with his GI symptoms and male in the face of his perforation. Should his mesalamine be restarted or should we even consider steroids at this time? If not now then when? Both the patient and his mother have expressed wish to be transferred to a higher level of care where gastroenterology can be consulted. Although the patient has requested [facility] his glass vial filler is through [facility] and I think that for continuity of care this option should be explored first. The patient has been using his incentive spirometry more frequently and with more direction. This is shown a definite improvement in his inspiration on physical examination today. FEN) The nasogastric tube was removed by me and is there is no significant output and the patient is not having any nausea or vomiting as he was yesterday. Wound) Continue wound VAC. Activity) I again stressed the importance of the patient being out of bed for the majority of the day. I would like to have him either seated or walking. PT has been involved and everything that they can do to increase his strength and encouraged him will be appreciated. Again incentive spirometry was stressed. Pain) Pain control is adequate although I do not think it is up to what the patient would desire. The patient is slightly somnolent but arousable after pain medication dosage. I am in agreement with transferring this patient for a higher level of care and the availability of a glass vial filler to opine on what the best treatment for his inflammatory bowel disease. Transfer represents the wish of the patient and his mother and with the availability of additional resources this is medically reasonable. I have asked the patient to let me know how he does in the future and I did explain to him that he should have his colostomy taken down in 9 to 12 months but that prior to that his colon would need to be evaluated to ensure that there is no ongoing disease. This again would require the opinion of a glass vial filler prior to any planned surgery.
--- NOTE | 2024-10-24 11:24 | Discharge Summary ---
Discharge Summary Admit Date: 10/14/24 Discharge Date: 10/24/24 Discharging Provider: Jessica Hameed PA-C Primary Care Provider: Thais Slaughter Code Status: Attempt Resuscitation HPI History of Present Illness: 34-year-old male with history of bipolar disorder as well as ulcerative colitis who presents with abdominal pain x 2 days. He states it was very severe yesterday, but today it was severe enough that he cried most of the day. He also reports subjective fever starting today. Reports last bowel movement 2 days ago. Denies chest pain, dyspnea, urinary abnormality. In the ER, CT abdomen/pelvis was performed which showed acute sigmoid diverticulitis with evidence of perforation. He was given multiple doses of narcotic pain medicine to include a total of 150 mcg of fentanyl, 5 mg diazepam, 10 mg morphine. General surgery was contacted by ER provider, who recommended admission to medicine with surgery consultation. In discussion with the on-call surgeon, it appears to be a very small, contained Perforation. Patient therefore was admitted to hospitalist service for medical management of diverticulitis with perforation. General surgery to follow ALLERGIES Allergies Allergy/AdvReac Type Severity Reaction Status Date / Time No Known Drug Allergies Allergy Verified 10/14/24 16:33 MEDICATIONS Ambulatory Orders Medication Instructions Recorded Confirmed esomeprazole magnesium 20 mg 20 mg PO DAILY 11/21/17 0 10/15/24 capsule,delayed release (Nexium 24HR) allopurinol 100 mg tablet 100 mg PO BID PRN gout 12/1710/14/24 mesalamine 1,000 mg rectal 1 g [place] DAILY 12/18/2310/15 suppository trazodone 100 mg tablet 100 - 200 mg PO HS 12/18/23 10/15/24 albuterol sulfate 90 mcg/actuation 2 puff inhalation 6 XD PRN 05/04/24 10/15/24 aerosol inhaler (Proventil HFA) shortness of breath or wheezing #8.5 grams fluticasone propionate 45 2 puff inhalation BID #12 gr ams 05/04/24 10/15/24 mcg-salmeterol 21 mcg/actuation HFA inhaler (Advair HFA) armodafinil 150 mg tablet 150 - 300 mg PO DAILY PRN NO N 10/14/24 10/15/24 ADDERALL DAYS dextroamphetamine-amphetamine 20 10 - 20 mg PO Q3H PRN ADHD SYMPTOMS 10/15/24 10/15/24 mg tablet PHYSICAL EXAM AT DISCHARGE Vital Signs: Vital Signs x48h Temp Pulse Resp BP Pulse Ox O2 Flow Rate 10/26/24 08:25 36.5 C 70 18 163/95 H 98 1 LABS 10/26/24 05:00 10/26/24 05:00 Discharge Plan Discharge Condition: Fair Prescriptions: No Action albuterol sulfate [Proventil HFA] 90 mcg/actuation HFA aerosol inhaler 2 puff inhalation 6XD PRN (Reason: shortness of breath or wheezing) Qty: 8.5 2RF fluticasone propion-salmeterol [Advair HFA] 45-21 mcg/actuation HFA aerosol inhaler 2 puff inhalation BID Qty: 12 2RF esomeprazole magnesium [Nexium 24HR] 20 MG capsule,delayed release(DR/EC) 20 mg PO DAILY trazodone 100 mg tablet 100 - 200 mg PO HS Rx Instructions: Take 2 tablet by mouth every night at bedtime prescribed elsewhere for sleep armodafinil 150 mg tablet 150 - 300 mg PO DAILY PRN (Reason: NON ADDERALL DAYS) Patient Comments: Take 1 TO 2 tablets BY MOUTH in the MORNING with a meal or snack and full glass of liquid only on days that Adderall is not utilized . Max of 2 tablets per day. dextroamphetamine-amphetamine 20 mg tablet 10 - 20 mg PO Q3H PRN (Reason: ADHD SYMPTOMS) Patient Comments: Take 1/2 to 1 tablet by mouth every 3 to 5 hours for ADHD symptoms. Max of 2 & 1/2 tablets or 50mg per day. Rx Instructions: NOT TO EXCEED 50 MG DAILY allopurinol 100 mg tablet 100 mg PO BID PRN (Reason: gout) mesalamine 1,000 mg suppository 1 g [place] DAILY Print Language: American Patient Instructions: Surg Dc Stand Alone Forms: PCP List Follow-up Care: Thais Reyes NP [Primary Care Provider, Family Practice]
--- NOTE | 2024-10-24 13:19 | PROVIDER PROGRESS NOTE ---
Subjective Prog Note Date Prog Note Date: 10/24/24 Subjective Subjective: Patient had a rough night. did not like his interactions with staff. He is requesting that he not work with certain staff. Otherwise, just went for a walk with his mom and friend. He feels better on the PPN, and feels like his energy is coming back. NG out this AM per surgery. Patient has visitors, he consents to discussion of medical information in front of his visitors (mom and best friend)- best friend out of room when question asked. Current Medications Current Medications Current Medications: Current Medications Generic Name Dose Route Start Last Admin Trade Name Freq PRN Reason Stop Dose Admin Albuterol 2.5 mg 10/15/24 23:36 10/22/24 20:42 Albuterol Neb 2.5 Mg/3 Ml INH 2.5 mg RTQ4H PRN Administration Wheezing Budesonide 0.5 mg 10/16/24 07:00 10/24/24 08:50 Budesonide 0.5 Mg/2 Ml Neb INH 0.5 mg RTBID DANIEL Administration Calcium Carbonate/Glycine 500 mg 10/17/24 11:57 10/17/24 12:05 Calcium Carbonate Chew 500 Mg Tablet PO 500 mg BID PRN Administration Heartburn Enoxaparin Sodium 40 mg 10/23/24 09:00 10/24/24 09:12 Enoxaparin 40 Mg/0.4 Ml Syringe SUBQ 40 mg DAILY DANIEL Administration Formoterol Fumarate 20 mcg 10/16/24 07:00 10/24/24 08:50 Formoterol Fumarate Neb 20 Mcg/2 Ml INH 20 mcg RTBID DANIEL Administration Hydromorphone HCl 1 mg 10/21/24 16:46 10/24/24 10:47 Hydromorphone 1 Mg/Ml Carpuject IVP 1 mg Q2H PRN Administration Severe Pain (Level 7-10) Acetaminophen 1,000 mg in 100 mls @ 400 mls/hr 10/22/24 12:00 10/24/24 11:54 Acetaminophen IV 400 mls/hr Q6HR DANIEL Administration Ciprofloxacin 400 mg in 200 mls @ 200 mls/hr 10/22/24 15:00 10/24/24 06:55 Cipro 400 Mg/200 Ml IV 200 mls/hr 0600,1800 DANIEL Administration Metronidazole 500 mg in 100 mls @ 100 mls/hr 10/23/24 10:00 10/24/24 10:08 Flagyl 500 Mg/100 Ml IV 100 mls/hr Q8H DANIEL Administration Multivitamins 10 ml/ Zinc/ 2,011 mls @ 83 mls/hr 10/23/24 19:00 10/23/24 21:50 Copper/Manganese/Selenium 1 ml IV 83 mls/hr / Amino Acids/Electrolytes/ 1900 DANIEL Administration Dextrose Protocol Fat Emulsion Intravenous 250 mls @ 21 mls/hr 10/23/24 19:00 10/23/24 21:50 Intralipid 20% IV 21 mls/hr 1900 DANIEL Administration Ketorolac Tromethamine 15 mg 10/22/24 12:00 10/24/24 11:54 Ketorolac 15 Mg/Ml Vial IVP 10/26/24 06:01 15 mg Q6HR DANIEL Administration Lorazepam 0.5 mg 10/14/24 20:21 10/24/24 08:08 Lorazepam 2 Mg/Ml Vial IVP 0.5 mg Q2H PRN Administration Anxiety Metoclopramide HCl 5 mg 10/20/24 19:31 10/23/24 08:18 Metoclopramide 10 Mg/2 Ml Vial IVP 5 mg Q6HR PRN Administration Nausea / Vomiting Multivitamins/Minerals 1 tab 10/23/24 09:00 10/24/24 10:09 Multivitamin W/Minerals Tablet PO 1 tab DAILYWM DANIEL Administration Ondansetron HCl 4 mg 10/14/24 20:21 10/24/24 04:49 Ondansetron 4 Mg/2 Ml Vial IVP 4 mg Q6HR PRN Administration Nausea / Vomiting Pantoprazole Sodium 40 mg 10/17/24 12:00 10/24/24 06:23 Pantoprazole 40 Mg Tablet PO 40 mg QDAC DANIEL Administration Phenol/Menthol 2 sprays 10/19/24 09:23 10/23/24 21:15 Phenol Throat Rosamond 177 Ml MM 2 sprays Q4HR PRN Administration Mouth Sore Pain Prochlorperazine Edisylate 10 mg 10/18/24 14:43 10/23/24 12:25 Prochlorperazine 10 Mg/2 Ml Vial IVP 10 mg Q6HR PRN Administration Nausea / Vomiting Sodium Chloride 10 ml 10/14/24 20:21 10/24/24 00:03 Sodium Chloride Flush 0.9% 10 Ml Syringe IVP 10 ml PRN PRN Administration NEEDED PER PROVIDER ORDERS Sodium Chloride 10 ml 10/15/24 01:00 10/24/24 09:13 Sodium Chloride Flush 0.9% 10 Ml Syringe IVP 10 ml 0100,0900,1700 DANIEL Administration Throat Lozenges 1 lozenge 10/16/24 05:25 10/16/24 06:20 Benzocaine/Menthol Lozenge MM 1 lozenge Q2HR PRN Administration Throat pain Trazodone HCl 50 mg 10/18/24 21:37 10/22/24 00:17 Trazodone 50 Mg Tablet PO 50 mg QPM PRN Administration sleep Objective Vital Signs/Intake & Output Reviewed Vital Signs: Yes Vital Signs: Vital Signs x48h Pulse Resp 10/24/24 08:51 73 20 Intake & Output: Intake & Output 10/21/24 10/22/24 10/23/24 10/24/24 23:59 23:59 23:59 23:59 Intake Total 420 / 420 2640 / 2640 1340 / 1340 320 / 320 Output Total 1455 / 1455 2355 / 2355 3225 / 3225 1710 / 1710 Balance -1035 / -1035 285 / 285 -1885 / -1885 -1390 / -1390 Weight (kg) 117 kg Objective General Appearance: positive No acute distress and Other (just walked, he is diaphoretic. ) Eyes Bilateral: positive Normal inspection and Conjunctivae nml ENT: positive ENT inspection nml Neck: positive Nml inspection Respiratory: positive No respiratory distress and Breath sounds nml Cardiovascular: positive Regular rate & rhythm Abdomen: positive Other (vac in place, minimal drainage, stoma productive of liquid stool, bowel tones present- abdomen is not distended) Back: positive Nml inspection Skin: positive Color nml and No rash Extremities: positive No pedal edema Neurologic/Psychiatric: positive Oriented x3 and Other (observed ambulating in the garcia with a walker, slow, but able to walk and steady with walker and IV pole, one person standby assist for lines and tubes. ) Lab Results 10/24/24 04:59 10/24/24 04:59 Other Labs: Lab Results x24hrs 10/24/24 10/24/24 10/23/24 Range/Units 12:30 04:59 21:02 WBC 19.4 H (4.8-10.8) x10^3/uL RBC 3.80 L (4.70-6.10) 10^6/uL Hgb 11.3 L (14.0-18.0) g/dL Hct 34.6 L (42.0-52.0) % MCV 91.1 (80.0-94.0) fL MCH 29.7 (27.0-31.0) pg MCHC 32.7 (32.0-36.0) g/dL RDW 12.9 (12.0-15.0) % Plt Count 426 (130-450) 10^3/uL MPV 9.3 (7.4-11.4) fL Neut # (Auto) Not Reportable Lymph # (Auto) Not Reportable [place] # (Auto) Not Reportable Eos # (Auto) Not Reportable Baso # (Auto) Not Reportable Absolute Nucleated RBC Not Reportable Total Counted 100 Band Neuts % (Manual) 4 (0 - 10) % Abnorm Lymph % (Manual) 0 % Myelocytes % 1 H ( - 0) % Nucleated RBC % Not Reportable Neutrophils # (Manual) 14.9 H (1.5-6.6) 10^3/uL Lymphocytes # (Manual) 2.3 (1.5-3.5) 10^3/uL Monocytes # (Manual) 1.2 H (0.0-1.0) 10^3/uL Eosinophils # (Manual) 0.6 (0-0.7) 10^3/uL Basophils # (Manual) 0.2 H (0-0.1) 10^3/uL Differential Comment MANUAL DIFFERENTIAL WBC Morphology NORMAL APPEARANCE (NORMAL) Platelet Estimate NORMAL (130-450,000) (NORMAL) Platelet Morphology NORMAL APPEARANCE (NORMAL) RBC Morph Micro Appear NORMAL APPEARANCE (NORMAL) Sodium 133 L (135-145) mmol/L Potassium 3.8 (3.5-4.5) mmol/L Chloride 100 L (101-111) mmol/L Carbon Dioxide 28 (21-32) mmol/L Anion Gap 5.0 L (6-13) BUN 14 (6-20) mg/dL Creatinine 0.7 (0.6-1.3) mg/dL Estimated GFR (MDRD) 129 (>89) Glucose 132 H (74-104) mg/dL POC Whole Bld Glucose 123 120 (70-100) mg/dL Calcium 8.4 L (8.5-10.3) mg/dL Phosphorus (2.5-5.0) mg/dL Magnesium (1.7-2.3) mg/dL Total Bilirubin 1.3 H (0.2-1.0) mg/dL AST 21 (10-42) IU/L ALT 29 (10-60) IU/L Alkaline Phosphatase 105 (42-121) IU/L Total Protein 5.9 L (6.4-8.9) g/dL Albumin 2.8 L (3.2-5.5) g/dL Globulin 3.1 (2.1-4.2) g/dL Albumin/Globulin Ratio 0.9 L (1.0-2.2) Prealbumin 11 L (17-34) mg/dL Triglycerides 174 mg/dL Urine Color Urine Clarity (CLEAR) Urine pH (5.0-7.5) PH Ur Specific [place] (1.002-1.030) Urine Protein (NEGATIVE) mg/dL Urine Glucose (UA) (NEGATIVE) mg/dL Urine Ketones (NEGATIVE) mg/dL Urine Occult Blood (NEGATIVE) Urine Nitrite (NEGATIVE) Urine Bilirubin (NEGATIVE) Urine Urobilinogen (NORMAL) E.U./dL Ur Leukocyte Esterase (NEGATIVE) Urine RBC (0-5) /HPF Urine WBC (0-3) /HPF Ur Squamous Epith Cells (<= Few) Urine Bacteria (None Seen) /HPF Urine Mucus Urine Culture Comments Stl C. diff Tox B Gene (NEGATIVE) 10/23/24 10/23/24 10/23/24 Range/Units 18:20 14:30 05:22 WBC (4.8-10.8) x10^3/uL RBC (4.70-6.10) 10^6/uL Hgb (14.0-18.0) g/dL Hct (42.0-52.0) % MCV (80.0-94.0) fL MCH (27.0-31.0) pg MCHC (32.0-36.0) g/dL RDW (12.0-15.0) % Plt Count (130-450) 10^3/uL MPV (7.4-11.4) fL Neut # (Auto) Lymph # (Auto) [place] # (Auto) Eos # (Auto) Baso # (Auto) Absolute Nucleated RBC Total Counted Band Neuts % (Manual) (0 - 10) % Abnorm Lymph % (Manual) % Myelocytes % ( - 0) % Nucleated RBC % Neutrophils # (Manual) (1.5-6.6) 10^3/uL Lymphocytes # (Manual) (1.5-3.5) 10^3/uL Monocytes # (Manual) (0.0-1.0) 10^3/uL Eosinophils # (Manual) (0-0.7) 10^3/uL Basophils # (Manual) (0-0.1) 10^3/uL Differential Comment WBC Morphology (NORMAL) Platelet Estimate (NORMAL) Platelet Morphology (NORMAL) RBC Morph Micro Appear (NORMAL) Sodium (135-145) mmol/L Potassium (3.5-4.5) mmol/L Chloride (101-111) mmol/L Carbon Dioxide (21-32) mmol/L Anion Gap (6-13) BUN (6-20) mg/dL Creatinine (0.6-1.3) mg/dL Estimated GFR (MDRD) (>89) Glucose (74-104) mg/dL POC Whole Bld Glucose (70-100) mg/dL Calcium (8.5-10.3) mg/dL Phosphorus 3.8 (2.5-5.0) mg/dL Magnesium 1.8 (1.7-2.3) mg/dL Total Bilirubin (0.2-1.0) mg/dL AST (10-42) IU/L ALT (10-60) IU/L Alkaline Phosphatase (42-121) IU/L Total Protein (6.4-8.9) g/dL Albumin (3.2-5.5) g/dL Globulin (2.1-4.2) g/dL Albumin/Globulin Ratio (1.0-2.2) Prealbumin (17-34) mg/dL Triglycerides mg/dL Urine Color ORANGE Urine Clarity CLEAR (CLEAR) Urine pH 6.0 (5.0-7.5) PH Ur Specific [place] 1.020 (1.002-1.030) Urine Protein TRACE (NEGATIVE) mg/dL Urine Glucose (UA) NEGATIVE (NEGATIVE) mg/dL Urine Ketones 15 H (NEGATIVE) mg/dL Urine Occult Blood NEGATIVE (NEGATIVE) Urine Nitrite NEGATIVE (NEGATIVE) Urine Bilirubin NEGATIVE (NEGATIVE) Urine Urobilinogen 0.2 (NORMAL) (NORMAL) E.U./dL Ur Leukocyte Esterase NEGATIVE (NEGATIVE) Urine RBC None Seen (0-5) /HPF Urine WBC 0-3 (0-3) /HPF Ur Squamous Epith Cells RARE Squamous (<= Few) Urine Bacteria None Seen (None Seen) /HPF Urine Mucus Few Strands Urine Culture Comments NOT INDICATED Stl C. diff Tox B Gene NEGATIVE (NEGATIVE) ABX Reporting Has patient been on IV antibiotics over the past 48 hours?: Yes Assessment/Plan Problem List (1) Sepsis: Impression: Sepsis secondary to bowel perforation Blood cultures without growth x 5 days. WBC 19.4 today,slight decrease Laboratory Tests 10/20/24 10/21/24 10/22/24 04:32 05:26 05:05 WBC 15.6 H 16.2 H 19.3 H 10/23/24 05:22 WBC 21.[address] Roa of general surgery. WBC is favorable but less than ideal. (2) Perforation of sigmoid colon due to diverticulitis: Impression: OR on 10/15 for ex lap with colon resection and colostomy. POD #9 vac change 10/21- to be left in place for one week per general surgery. he is NPO. NG removed. tolerating that well, but does not want PO right now. PPN started yesterday. stoma is pink and viable with liquid output. abdomen is not distended or rigid. Managing pain in conjunction with general surgery Pain meds: needing IV Dilaudid and IV nausea control. Scheduled oral oxycodone removed. it makes him nauseated. He is on scheduled toradol and IV acetominophen. Wound vac has been very effective. there has been no additional bleeding from the wound. General surgery, Dr Cazares, is recommending leaving the wound vac in place for one week. General surgery deciding how to manage wound closure, may do delayed primary closure with Prevena. Stoma output was neg for C diff. I am continuing IV Cipro and flagyl. (3) Leukocytosis: Impression: elevated WBC. C diff PCR negative. I have sent stool cultures as well as C diff PCR. I have checked one view CXR, and findings suspicious for bilat streaky opacities, likely atelectasis, not surprising given his clinical picture. cannot rule out fluid overload, infectious/inflammatory. small right pleural effusion- new elevation of the right hemidiaphragm. two view XR did not give any additional information. AT this juncture, I do not see indication for CT chest. He is not tachypeic or hypoxic. He is starting to ambulate more and use IS with some frequency since he is feeling better with PPN running. (4) History of chronic ulcerative colitis: Impression: He was on mesalamine until approx 2 weeks ago, stopped taking it as he was feeling poorly. I have also sent fecal calprotectin. This is a marker for intestinal inflammation, so surely will be elevated in C diff as well. I called [facility] today, and discussed his diagnosis with GI [place] aide, Dr Dilcia Johnson. She was able to review chart and relay information to me. This patient does not have inflammatory bowel disease. He has constipation. he does not need mesalamine. he had colonoscopy in August 2023 and biopsies taken at that time did not showIBD. he saw Dr Tomas in Jan 2024, and this information was relayed. At that time, per the patient, he was rx'ed anusol HC, which he has been unable to fill- he thinks bc his insurance will not pay. he tells me that [facility] will not let him pay quinteros for this. he tells me that the mesalamine makes his hemorrhoids better, so he uses it. It would seem that he is getting the mesalamine through his PCP. Patient and family are requesting transfer to another facility today. They are not happy with his care here. I have reached out to [facility], who has no beds, but [facility] is on a wait list there. I have reached out of [facility] today, and after speaking with GI, and discovering there is no need for GI consultation, I will speak with surgery. I spoke with Dr Justin Kong of [facility] at [facility]. Dr Kong has reviewed the patient's CT scans in detail. I reviewed the case with him in detail. he sees no medical indication for transfer of this patient. He did recommend looking at the wound once again, just to insure no wound infection. that was relayed to general surgery- Dr Roa will look at the wound tomorrow. He recommended appetite stimulants and ambulation. Patient does not want to take po meds at this time, may consider this in the next 1-2 days. This patient's diagnosis and treatment plan was discussed this AM with attending physician as a part of multi disciplinary rounding meeting. I have spent 60 minutes in the care of this patient today. This includes time [id number], review and ordering of diagnostic imaging and laboratory studies and consultation with other providers. Monitoring the patient's signs symptoms, evaluation of medication effectiveness and patient's response to treatment.
[2024-10-24] MEDS: HYDROmorphone PCA 20MG/100ML IV PRN (17:42)
[2024-10-25 07:36] LABS: BUN - BLOOD UREA NITROGEN 13.0 mg/dL (6-20); CARBON DIOXIDE - CO2 26.0 mmol/L (21-32); CREATININE 0.6 mg/dL (0.6-1.3); GFR - MDRD 154.0 (>89)
[2024-10-25 07:37] LABS: HCT - HEMATOCRIT 35.1 % (42.0-52.0); HGB - HEMOGLOBIN 11.4 g/dL (14.0-18.0); MEAN PLATELET VOLUME 9.4 fL (7.4-11.4); NRBC ABSOLUTE COUNT (AUTO) 0.00 x10^3/uL; NUCLEATED RED BLOOD CELLS AUTO 0.0 /100WBC; PLT - PLATELET COUNT 511 10^3/uL (130-450); RED CELL DISTRIBUTION WIDTH 12.9 % (12.0-15.0)
[2024-10-25] MEDS: ACETAMINOPHEN 1,000 MG/100 ML 1,000 MG/100 ML BAG IV SCH (10:17)
--- NOTE | 2024-10-25 10:39 | PROVIDER PROGRESS NOTE ---
Subjective General Admit Date: 10/14/24 Procedure Date: 10/15/24 Post Op Days: 10 Procedure Performed: open sigmoid colon rescection and end colostomy, washout Wound Assessment Wound/Incisions: positive Drainage Drain Type: Wound vac in place without increased drainage and excellent seal Review of Systems Both the patient and his mother expressed concerns about the care here at [facility]. Status of ROS: 10 or more systems reviewed and unremarkable except as noted in history and below Gastrointestinal Reports: Abdominal pain Exam Exam Vital Signs: Vital Signs x48h Temp Pulse Pulse Resp BP Pulse Ox 10/25/24 09:09 36.4 C L 70 22 143/83 H 98 10/25/24 09:00 16 10/25/24 08:15 64 16 10/25/24 06:35 24 10/25/24 05:00 24 10/25/24 03:00 20 General: 34-year-old male, appears stated age, appears slightly somnolent, covered with only a sheet, has a fan blowing on him HEENT: Normocephalic, atraumatic, extraocular movement intact, mucous membranes pink and moist, sclera anicteric and not injected Neck: Supple without pain on palpation, mass or bruit Cardiac: Regular rate and rhythm without rub, gallop, or murmur Chest: Even more improvement today - clearer throughout. Abdomen: Decreased but improved bowel sounds, wound VAC in place and functioning well without leak, drain with serosanguineous drainage, no peritoneal findings, ostomy pink and productive Genitourinary: Deferred Rectal: Deferred Extremities: No gross neurovascular problem, no clubbing, cyanosis or edema Gait: Not evaluated as I did not see him ambulate today. Psychiatric: Alert and oriented to person place and time, asks and answers questions appropriately, mood and affect appropriate ABX Reporting Has patient been on IV antibiotics over the past 48 hours?: Yes Impression/Plan Problem List (1) Sepsis: (2) Perforation of sigmoid colon due to diverticulitis: (3) Leukocytosis: (4) History of chronic ulcerative colitis: Plan Postop day 10 status post sigmoidectomy with end colostomy and Montes's pouch, extensive abdominal washout and placement of a drain ID) Patient is obviously at a risk for an intra-abdominal infection due to the spillage of his abdominal contents requiring surgery. Patient switched to ciprofloxacin and metronidazole. White blood cell count is elevated and has decreased even more so. Elevated WBC may just be the result of an exuberant immune response to an infection in a young male and not something more sinister - the workup so far has been unrevealing. In depth work (calling his other physicians by Jessica Hameed) revealed that he does not have ulcerative colitis. The patient has been using his incentive spirometry more frequently and with more direction. This is shown a definite improvement in his inspiration on physical examination today. FEN) The nasogastric tube was removed by me and is there is no significant output and the patient is not having any nausea or vomiting as he was yesterday. I recommend general diet as full liquid tends to be the most problematic diet. Wound) Continue wound VAC. Activity) I again stressed the importance of the patient being out of bed for the majority of the day. I would like to have him either seated or walking. PT has been involved and everything that they can do to increase his strength and encouraged him will be appreciated. Again incentive spirometry was stressed. Shower today. Everything can get wet. Protest IV so it does not fall out. Pain) I recommended GLASS UNLOADING EQUIPMENT TENDER yesterday to allow patient a greater sense of control but patient is thinking to have it D/C'ed to increase his activity. I told him we could place all of his IVs on one pole to help with ambulation. In summary improving and heading in the right direction. His father is c urrently at the bedside and this was discussed with the patient and his father. The patient is motivated and feels better for the first time in a long time as such we should take advantage by having him walk as much as possible and take a shower today.
[2024-10-25] MEDS: HYDROmorphone 0.5 MG/0.5 ML SYRINGE IVP PRN (12:22)
--- NOTE | 2024-10-25 13:37 | PROVIDER PROGRESS NOTE ---
Subjective Prog Note Date Prog Note Date: 10/25/24 Subjective Subjective: Much better, hungry. Ate regular diet for lunch, got pain meds orally, and now taking a nap. Wanted INSPECTOR CRYSTAL off this AM. His dad was able to come today, and he finds having him here very helpful to his recovery. Current Medications Current Medications Current Medications: Current Medications Generic Name Dose Route Start Last Admin Trade Name Freq PRN Reason Stop Dose Admin Albuterol 2.5 mg 10/15/24 23:36 10/22/24 20:42 Albuterol Neb 2.5 Mg/3 Ml INH 2.5 mg RTQ4H PRN Administration Wheezing Budesonide 0.5 mg 10/16/24 07:00 10/25/24 08:12 Budesonide 0.5 Mg/2 Ml Neb INH 0.5 mg RTBID DANIEL Administration Calcium Carbonate/Glycine 500 mg 10/17/24 11:57 10/17/24 12:05 Calcium Carbonate Chew 500 Mg Tablet PO 500 mg BID PRN Administration Heartburn Enoxaparin Sodium 40 mg 10/23/24 09:00 10/25/24 08:05 Enoxaparin 40 Mg/0.4 Ml Syringe SUBQ 40 mg DAILY DANIEL Administration Formoterol Fumarate 20 mcg 10/16/24 07:00 10/25/24 08:12 Formoterol Fumarate Neb 20 Mcg/2 Ml INH 20 mcg RTBID DANIEL Administration Hydromorphone HCl 1 mg 10/24/24 17:30 10/25/24 12:22 Hydromorphone 0.5 Mg/0.5 Ml Syringe IVP 1 mg Q2H PRN Administration Severe Pain (Level 7-10) Hydroxyzine Pamoate 50 mg 10/24/24 18:25 10/25/24 01:07 Hydroxyzine Pamoate 25 Mg Capsule PO 50 mg Q6H PRN Administration Insomnia Ciprofloxacin 400 mg in 200 mls @ 200 mls/hr 10/22/24 15:00 10/25/24 06:16 Cipro 400 Mg/200 Ml IV 200 mls/hr 0600,1800 DANIEL Administration Metronidazole 500 mg in 100 mls @ 100 mls/hr 10/23/24 10:00 10/25/24 11:20 Flagyl 500 Mg/100 Ml IV Infused Q8H DANIEL Infusion Multivitamins 10 ml/ Zinc/ 2,011 mls @ 83 mls/hr 10/23/24 19:00 10/24/24 19:37 Copper/Manganese/Selenium 1 ml IV 83 mls/hr / Amino Acids/Electrolytes/ 1900 DANIEL Administration Dextrose Protocol Fat Emulsion Intravenous 250 mls @ 21 mls/hr 10/23/24 19:00 10/25/24 08:00 Intralipid 20% IV Infused 1900 DANIEL Infusion Acetaminophen 1,000 mg in 100 mls @ 400 mls/hr 10/25/24 07:30 10/25/24 11:20 Acetaminophen IV Infused Q6H DANIEL Infusion Ketorolac Tromethamine 15 mg 10/22/24 12:00 10/25/24 06:15 Ketorolac 15 Mg/Ml Vial IVP 10/26/24 06:01 15 mg Q6HR DANIEL Administration Metoclopramide HCl 5 mg 10/20/24 19:31 10/23/24 08:18 Metoclopramide 10 Mg/2 Ml Vial IVP 5 mg Q6HR PRN Administration Nausea / Vomiting Multivitamins/Minerals 1 tab 10/23/24 09:00 10/25/24 08:05 Multivitamin W/Minerals Tablet PO 1 tab DAILYWM DANIEL Administration Ondansetron HCl 4 mg 10/14/24 20:21 10/25/24 12:29 Ondansetron 4 Mg/2 Ml Vial IVP 4 mg Q6HR PRN Administration Nausea / Vomiting Oxycodone HCl 5 mg 10/25/24 11:52 Oxycodone 5 Mg Tablet PO Q4HR PRN Moderate Pain (Level 4-6) Oxycodone HCl 7.5 mg 10/25/24 11:52 Oxycodone 5 Mg Tablet PO Q4HR PRN Severe Pain (Level 7-10) Pantoprazole Sodium 40 mg 10/17/24 12:00 10/25/24 06:16 Pantoprazole 40 Mg Tablet PO 40 mg QDAC [facility] Administration Phenol/Menthol 2 sprays 10/19/24 09:23 10/23/24 21:15 Phenol Throat [place] 177 Ml MM 2 sprays Q4HR PRN Administration Mouth Sore Pain Prochlorperazine Edisylate 10 mg 10/18/24 14:43 10/25/24 01:16 Prochlorperazine 10 Mg/2 Ml Vial IVP 10 mg Q6HR PRN Administration Nausea / Vomiting Sodium Chloride 10 ml 10/14/24 20:21 10/24/24 00:03 Sodium Chloride Flush 0.9% 10 Ml Syringe IVP 10 ml PRN PRN Administration NEEDED PER PROVIDER ORDERS Sodium Chloride 10 ml 10/15/24 01:00 10/25/24 10:17 Sodium Chloride Flush 0.9% 10 Ml Syringe IVP 10 ml 0100,0900,1700 DANIEL Administration Throat Lozenges 1 lozenge 10/16/24 05:25 10/16/24 06:20 Benzocaine/Menthol Lozenge MM 1 lozenge Q2HR PRN Administration Throat pain Trazodone HCl 50 mg 10/18/24 21:37 10/24/24 19:57 Trazodone 50 Mg Tablet PO 50 mg QPM PRN Administration sleep Objective Vital Signs/Intake & Output Reviewed Vital Signs: Yes Vital Signs: Vital Signs x48h Temp Pulse Pulse Resp BP Pulse Ox 10/25/24 09:09 36.4 C L 70 22 143/83 H 98 10/25/24 09:00 16 10/25/24 08:15 64 16 10/25/24 06:35 24 Intake & Output: Intake & Output 10/22/24 10/23/24 10/24/24 10/25/24 23:59 23:59 23:59 23:59 Intake Total 2640 / 2640 1340 / 1340 3978 / 3978 1250 / 1250 Output Total 2355 / 2355 3225 / 3225 3100 / 3100 2330 / 2330 Balance 285 / 285 -1885 / -1885 878 / 878 -1080 / -1080 Weight (kg) 117 kg 91 kg Objective General Appearance: positive No acute distress and Alert Eyes Bilateral: positive Normal inspection and Conjunctivae nml ENT: positive ENT inspection nml Neck: positive Nml inspection Respiratory: positive No respiratory distress and Breath sounds nml Cardiovascular: positive Regular rate & rhythm Abdomen: positive Other (vac in place, minimal drainage, stoma productive of liquid stool, bowel tones present- abdomen is not distended) Back: positive Nml inspection Skin: positive Color nml and No rash Extremities: positive No pedal edema Neurologic/Psychiatric: positive Oriented x3 and Other (observed ambulating in the garcia with a walker, slow, but able to walk and steady with walker and IV pole, one person standby assist for lines and tubes. ) Lab Results 10/25/24 06:58 10/25/24 06:58 Other Labs: Lab Results x24hrs 10/25/24 10/25/24 Range/Units 09:03 06:58 WBC 16.7 H (4.8-10.8) x10^3/uL RBC 3.83 L (4.70-6.10) 10^6/uL Hgb 11.4 L (14.0-18.0) g/dL Hct 35.1 L (42.0-52.0) % MCV 91.6 (80.0-94.0) fL MCH 29.8 (27.0-31.0) pg MCHC 32.5 (32.0-36.0) g/dL RDW 12.9 (12.0-15.0) % Plt Count 511 H (130-450) 10^3/uL MPV 9.4 (7.4-11.4) fL Neut # (Auto) 13.6 H (1.5-6.6) 10^3/uL Lymph # (Auto) 1.3 L (1.5-3.5) 10^3/uL Bee # (Auto) 1.0 (0.0-1.0) 10^3/uL Eos # (Auto) 0.4 (0.0-0.7) 10^3/uL Baso # (Auto) 0.1 (0.0-0.1) 10^3/uL Absolute Nucleated RBC 0.00 x10^3/uL Nucleated RBC % 0.0 /100WBC Sodium 134 L (135-145) mmol/L Potassium 4.1 (3.5-4.5) mmol/L Chloride 103 (101-111) mmol/L Carbon Dioxide 26 (21-32) mmol/L Anion Gap 5.0 L (6-13) BUN 13 (6-20) mg/dL Creatinine 0.6 (0.6-1.3) mg/dL Estimated GFR (MDRD) 154 (>89) Glucose 153 H (74-104) mg/dL POC Whole Bld Glucose 131 (70-100) mg/dL Calcium 8.3 L (8.5-10.3) mg/dL ABX Reporting Has patient been on IV antibiotics over the past 48 hours?: Yes Assessment/Plan Problem List (1) Sepsis: Impression: Sepsis secondary to bowel perforation Blood cultures without growth x 5 days. WBC 16.7 today, trend is favorable. 2 Laboratory Tests 10/21/24 10/22/24 10/23/24 05:26 05:05 05:22 WBC 16.2 H 19.3 H 21.1 H 10/24/24 10/25/24 04:59 06:58 WBC 19.4 H 16.7 H (2) Perforation of sigmoid colon due to diverticulitis: Impression: OR on 10/15 for ex lap with colon resection and colostomy. POD #10 vac change 10/21- to be left in place for one week per general surgery. he is starting to tolerate a diet. NG out for > 24 hours and no vomting. . PPN started 10/23 stoma is pink and viable with liquid output. abdomen is not distended or rigid. Managing pain in conjunction with general surgery Pain meds: wants off INSPECTOR CRYSTAL and back onto oral oxycodone. He is on scheduled toradol and IV acetaminophen. Last toradol dose is tomorrow AM. Will assess pain and at time and consider ibuprofen. Wound vac has been very effective. there has been no additional bleeding from the wound. General surgery, Dr Cazares, is recommending leaving the wound vac in place for one week. General surgery deciding how to manage wound closure, may do delayed primary closure with Prevena. Stoma output was neg for C diff. I am continuing IV Cipro and flagyl. these were started on 10/22. there has been no change in character of the MARTÍNEZ output- scant and serous with occasional fibrinous exudate. (3) Leukocytosis: Impression: elevated WBC. C diff PCR negative. I have sent stool cultures as well as C diff PCR. No results back on cultures. The intraop cultures are not revealing, expected heidy associated with stool. Trend is favorable. I have ordered repeat CBC for the AM. (4) History of chronic ulcerative colitis: Impression: He was on mesalamine until approx 2 weeks ago, stopped taking it as he was feeling poorly. I have also sent fecal calprotectin. This is a marker for intestinal inflammation. not yet returned. I called [facility] 10/24, and discussed his diagnosis with GI plant control aide, Dr Dilcia Johnson. She was able to review chart and relay information to me. This patient does not have inflammatory bowel disease. He has constipation. he does not need mesalamine. he had colonoscopy in August 2023 and biopsies taken at that time did not showIBD. he saw Dr Tomas in Jan 2024, and this information was relayed. At that time, per the patient, he was rx'ed anusol HC, which he has been unable to fill- he thinks bc his insurance will not pay. he tells me that [facility] will not let him pay quinteros for this. he tells me that the mesalamine makes his hemorrhoids better, so he uses it. It would seem that he is getting the mesalamine through his PCP. Patient and family requested transfer on 10/24 They wee not happy with his care here. I reached out to [facility], who had no beds.. I reached out to [facility], and after speaking with GI, and discovering there is no need for GI consultation, I spoke w surgery. I spoke with Dr Justin Kong of [facility] at [facility]. Dr Kong has reviewed the patient's CT scans in detail. I reviewed the case with him in detail. he sees no medical indication for transfer of this patient. He did recommend looking at the wound once again, just to insure no wound infection. that was relayed to general surgery-with the improvement in WBC, lack of significant vac drainage, no periwound cellulitis and patient's tolerance for dressing changes, I will not do that today. He recommended appetite stimulants and ambulation. Patient seems to improved greatly overnight. This patient's diagnosis and treatment plan was discussed this AM with attending physician as a part of multi disciplinary rounding meeting. I have spent 52 minutes in the care of this patient today. This includes time [id number], review and ordering of diagnostic imaging and laboratory studies and consultation with other providers. Monitoring the patient's signs symptoms, evaluation of medication effectiveness and patient's response to treatment.
[2024-10-25] MEDS: oxyCODONE 5 MG TABLET PO PRN (14:32)
[2024-10-26 05:38] LABS: HCT - HEMATOCRIT 32.5 % (42.0-52.0); HGB - HEMOGLOBIN 10.5 g/dL (14.0-18.0); MEAN PLATELET VOLUME 9.2 fL (7.4-11.4); NRBC ABSOLUTE COUNT (AUTO) 0.00 x10^3/uL; NUCLEATED RED BLOOD CELLS AUTO 0.0 /100WBC; PLT - PLATELET COUNT 506 10^3/uL (130-450); RED CELL DISTRIBUTION WIDTH 12.8 % (12.0-15.0)
[2024-10-26 05:56] LABS: BUN - BLOOD UREA NITROGEN 14.0 mg/dL (6-20); CARBON DIOXIDE - CO2 27.0 mmol/L (21-32); CREATININE 0.6 mg/dL (0.6-1.3); GFR - MDRD 154.0 (>89); PHOSPHORUS 4.0 mg/dL (2.5-5.0)
[2024-10-26] MEDS: oxyCODONE 5 MG TABLET PO PRN ×2 (10:17→23:41)
--- NOTE | 2024-10-26 14:32 | PROVIDER PROGRESS NOTE ---
Subjective General Admit Date: 10/14/24 Procedure Date: 10/15/24 Post Op Days: 12 Procedure Performed: open sigmoid colon rescection and end colostomy, washout Wound Assessment Wound/Incisions: positive Drainage Drain Type: Wound vac in place without increased drainage and excellent seal Review of Systems Both the patient and his mother expressed concerns about the care here at [facility]. Status of ROS: 10 or more systems reviewed and unremarkable except as noted in history and below Exam Exam Vital Signs: Vital Signs x48h Temp Pulse Resp BP Pulse Ox 10/27/24 15:53 36.5 C 85 20 151/80 H 94 General: 34-year-old male, appears stated age, sleeping comfortably HEENT: Normocephalic, atraumatic, extraocular movement intact, mucous membranes pink and moist, sclera anicteric and not injected Neck: Supple without pain on palpation, mass or bruit Cardiac: Regular rate and rhythm without rub, gallop, or murmur Chest: Even more improvement today - clearer throughout. Abdomen: Decreased but improved bowel sounds, wound VAC in place and functioning well without leak, no peritoneal findings, ostomy pink and productive Genitourinary: Deferred Rectal: Deferred Extremities: No gross neurovascular problem, no clubbing, cyanosis or edema Gait: Not evaluated as I did not see him ambulate today. Psychiatric: Alert and oriented to person place and time, asks and answers questions appropriately, mood and affect appropriate ABX Reporting Has patient been on IV antibiotics over the past 48 hours?: Yes Impression/Plan Problem List (1) Sepsis: (2) Perforation of sigmoid colon due to diverticulitis: (3) Leukocytosis: (4) History of chronic ulcerative colitis: Plan Postop day 11 status post sigmoidectomy with end colostomy and Montes's pouch, extensive abdominal washout and placement of a drain ID) I believe that UC has now been ruled out. WBC decreasing. Patient's risk for intra-abdominal infection less and less. The patient has been using his incentive spirometry more frequently and with more direction. This is shown a definite improvement in his inspiration on physical examination today. FEN) General diet. Wound) Continue wound VAC - change it tomorrow. Activity) He has been walking more and more. Pain) Much better control. In summary improving and heading in the right direction. His father is currently at the bedside and this was discussed with the patient and his father. The patient is motivated and feels better for the first time in a long time as such we should take advantage by having him walk as much as possible and take a shower today.
--- NOTE | 2024-10-26 15:59 | PROVIDER PROGRESS NOTE ---
Subjective Prog Note Date Prog Note Date: 10/26/24 Subjective Subjective: He is doing well. He has taken multiple walks today. he is tolerating a diet. IV came out this afternoon and therefore we have stopped PPN. Current Medications Current Medications Current Medications: Current Medications Generic Name Dose Route Start Last Admin Trade Name Freq PRN Reason Stop Dose Admin Albuterol 2.5 mg 10/15/24 23:36 10/22/24 20:42 Albuterol Neb 2.5 Mg/3 Ml INH 2.5 mg RTQ4H PRN Administration Wheezing Budesonide 0.5 mg 10/16/24 07:00 10/26/24 07:26 Budesonide 0.5 Mg/2 Ml Neb INH 0.5 mg RTBID DANIEL Administration Calcium Carbonate/Glycine 500 mg 10/17/24 11:57 10/17/24 12:05 Calcium Carbonate Chew 500 Mg Tablet PO 500 mg BID PRN Administration Heartburn Enoxaparin Sodium 40 mg 10/23/24 09:00 10/26/24 08:08 Enoxaparin 40 Mg/0.4 Ml Syringe SUBQ Not Given DAILY DANIEL Formoterol Fumarate 20 mcg 10/16/24 07:00 10/26/24 07:26 Formoterol Fumarate Neb 20 Mcg/2 Ml INH 20 mcg RTBID DANIEL Administration Hydromorphone HCl 1 mg 10/24/24 17:30 10/26/24 14:41 Hydromorphone 0.5 Mg/0.5 Ml Syringe IVP 1 mg Q2H PRN Administration Severe Pain (Level 7-10) Hydroxyzine Pamoate 50 mg 10/24/24 18:25 10/26/24 00:48 Hydroxyzine Pamoate 25 Mg Capsule PO 50 mg Q6H PRN Administration Insomnia Ciprofloxacin 400 mg in 200 mls @ 200 mls/hr 10/22/24 15:00 10/26/24 07:35 Cipro 400 Mg/200 Ml IV Infused 0600,1800 DANIEL Infusion Metronidazole 500 mg in 100 mls @ 100 mls/hr 10/23/24 10:00 10/26/24 11:22 Flagyl 500 Mg/100 Ml IV Infused Q8H DANIEL Infusion Multivitamins 10 ml/ Zinc/ 2,011 mls @ 83 mls/hr 10/23/24 19:00 10/25/24 19:17 Copper/Manganese/Selenium 1 ml IV 10/26/24 18:59 83 mls/hr / Amino Acids/Electrolytes/ 1900 DANIEL Administration Dextrose Protocol Fat Emulsion Intravenous 250 mls @ 21 mls/hr 10/23/24 19:00 10/26/24 07:15 Intralipid 20% IV 10/26/24 18:59 Infused 1900 DANIEL Infusion Acetaminophen 1,000 mg in 100 mls @ 400 mls/hr 10/25/24 07:30 10/26/24 13:45 Acetaminophen IV Infused Q6H DANIEL Infusion Metoclopramide HCl 5 mg 10/20/24 19:31 10/26/24 04:33 Metoclopramide 10 Mg/2 Ml Vial IVP 5 mg Q6HR PRN Administration Nausea / Vomiting Multivitamins/Minerals 1 tab 10/23/24 09:00 10/26/24 08:07 Multivitamin W/Minerals Tablet PO 1 tab DAILYWM DANIEL Administration Ondansetron HCl 4 mg 10/14/24 20:21 10/26/24 10:56 Ondansetron 4 Mg/2 Ml Vial IVP 4 mg Q6HR PRN Administration Nausea / Vomiting Oxycodone HCl 5 mg 10/25/24 11:52 10/26/24 10:17 Oxycodone 5 Mg Tablet PO 5 mg Q4HR PRN Administration Moderate Pain (Level 4-6) Oxycodone HCl 7.5 mg 10/25/24 11:52 10/26/24 13:52 Oxycodone 5 Mg Tablet PO 7.5 mg Q4HR PRN Administration Severe Pain (Level 7-10) Pantoprazole Sodium 40 mg 10/17/24 12:00 10/26/24 06:31 Pantoprazole 40 Mg Tablet PO 40 mg QDAC DANIEL Administration Phenol/Menthol 2 sprays 10/19/24 09:23 10/23/24 21:15 Phenol Throat [place] 177 Ml MM 2 sprays Q4HR PRN Administration Mouth Sore Pain Prochlorperazine Edisylate 10 mg 10/18/24 14:43 10/26/24 12:50 Prochlorperazine 10 Mg/2 Ml Vial IVP 10 mg Q6HR PRN Administration Nausea / Vomiting Sodium Chloride 10 ml 10/14/24 20:21 10/26/24 02:39 Sodium Chloride Flush 0.9% 10 Ml Syringe IVP 10 ml PRN PRN Administration NEEDED PER PROVIDER ORDERS Sodium Chloride 10 ml 10/15/24 01:00 10/26/24 08:07 Sodium Chloride Flush 0.9% 10 Ml Syringe IVP 10 ml 0100,0900,1700 DANIEL Administration Throat Lozenges 1 lozenge 10/16/24 05:25 10/16/24 06:20 Benzocaine/Menthol Lozenge MM 1 lozenge Q2HR PRN Administration Throat pain Trazodone HCl 50 mg 10/18/24 21:37 10/25/24 22:41 Trazodone 50 Mg Tablet PO 50 mg QPM PRN Administration sleep Objective Vital Signs/Intake & Output Reviewed Vital Signs: Yes Vital Signs: Vital Signs x48h Temp Pulse Resp BP Pulse Ox O2 Flow Rate 10/26/24 08: 36.5 C 70 18 163/95 H 98 1 Intake & Output: Intake & Output 10/23/24 10/24/24 10/25/24 10/26/24 23:59 23:59 23:59 23:59 Intake Total 1340 / 1340 3978 / 3978 4184 / 4184 1440 / 1440 Output Total 3225 / 3225 3100 / 3100 3125 / 3125 706 / 706 Balance -1885 / -1885 878 / 878 1059 / 1059 734 / 734 Weight (kg) 117 kg 91 kg 116 kg Objective General Appearance: positive No acute distress and Alert Eyes Bilateral: positive Normal inspection and Conjunctivae nml ENT: positive ENT inspection nml Neck: positive Nml inspection Respiratory: positive No respiratory distress and Breath sounds nml Cardiovascular: positive Regular rate & rhythm Abdomen: positive Other (vac in place, minimal drainage, stoma productive- stool becoming more formed, bowel tones present- abdomen is not distended) Back: positive Nml inspection Skin: positive Color nml and No rash Extremities: positive No pedal edema Neurologic/Psychiatric: positive Oriented x3 and Other (observed ambulating in the garcia with a walker, slow, but able to walk and steady with walker and IV pole, one person standby assist for lines and tubes. ) Comments/Other: MARTÍNEZ removed today, by me, without difficulty. abdomen is open with vac in place. The measurements of the wound are 24cm in length, about 7cm at widest point and approx 3cm deep. Lab Results 10/26/24 05:00 10/26/24 05:00 Other Labs: Lab Results x24hrs 10/26/24 Range/Units 05:00 WBC 15.1 H (4.8-10.8) x10^3/uL RBC 3.55 L (4.70-6.10) 10^6/uL Hgb 10.5 L (14.0-18.0) g/dL Hct 32.5 L (42.0-52.0) % MCV 91.5 (80.0-94.0) fL MCH 29.6 (27.0-31.0) pg MCHC 32.3 (32.0-36.0) g/dL RDW 12.8 (12.0-15.0) % Plt Count 506 H (130-450) 10^3/uL MPV 9.2 (7.4-11.4) fL Neut # (Auto) 11.6 H (1.5-6.6) 10^3/uL Lymph # (Auto) 1.7 (1.5-3.5) 10^3/uL [place] # (Auto) 1.1 H (0.0-1.0) 10^3/uL Eos # (Auto) 0.4 (0.0-0.7) 10^3/uL Baso # (Auto) 0.1 (0.0-0.1) 10^3/uL Absolute Nucleated RBC 0.00 x10^3/uL Nucleated RBC % 0.0 /100WBC Sodium 135 (135-145) mmol/L Potassium 4.2 (3.5-4.5) mmol/L Chloride 103 (101-111) mmol/L Carbon Dioxide 27 (21-32) mmol/L Anion Gap 5.0 L (6-13) BUN 14 (6-20) mg/dL Creatinine 0.6 (0.6-1.3) mg/dL Estimated GFR (MDRD) 154 (>89) Glucose 114 H (74-104) mg/dL Calcium 8.4 L (8.5-10.3) mg/dL Phosphorus 4.0 (2.5-5.0) mg/dL Magnesium 1.8 (1.7-2.3) mg/dL ABX Reporting Has patient been on IV antibiotics over the past 48 hours?: Yes Assessment/Plan Problem List (1) Sepsis: Impression: Sepsis secondary to bowel perforation Blood cultures without growth x 5 days. WBC 15.1 today, trend is favorable. 2 Laboratory Tests 10/21/24 10/22/24 10/23/24 05:26 05:05 05:22 WBC 16.2 H 19.3 H 21.1 H 10/24/24 10/25/24 04:59 06:58 WBC 19.4 H 16.7 H (2) Perforation of sigmoid colon due to diverticulitis: Impression: OR on 10/15 for ex lap with colon resection and colostomy. POD #11 vac change 10/21- to be left in place for one week per general surgery. I will be removing and replacing it tomorrow with general surgery He is tolerating a diet, and walking. his stoma is productive and stool is becoming more firm Managing pain in conjunction with general surgery Pain meds: scheduled IV acetaminophen, will change this po when discharged. He is getting 5-7.5mg of oxycodone every 4 hours with IV dilaudid for breakthrough pain. He is still getting frequent dilaudid, indicating the need for parenteral pain control. 6 doses of IV pain meds since midnight as of this note writing at 1600. The need for parenteral narcotics is the thing that may keep this patient in the hospital at this point. Wound vac has been very effective. there has been no additional bleeding from the wound. General surgery, Dr Cazares, is recommending leaving the wound vac in place for one week. discussed wound vac/plan for wound further with Dr Roa today, and will let wound heal by secondary intention with wound vac. I have made the appropriate referrals today. Stoma output was neg for C diff. I am continuing IV Cipro and flagyl. these were started on 10/22. Stool studies remain pending. there has been no change in character of the MARTÍNEZ output- scant and serous with occasional fibrinous exudate. I removed the MARTÍNEZ today (3) Leukocytosis: Impression: elevated WBC. C diff PCR negative. I have sent stool cultures as well as C diff PCR. No results back on cultures. The intraop cultures are not revealing, expected heidy associated with stool. Trend is favorable. I have ordered repeat CBC for the AM. As long as WBC downtrending, OK to go home before WBC normalized. result for fecal calprotectin also remains pending. (4) History of chronic ulcerative colitis: Impression: He was on mesalamine until approx 2 weeks ago, stopped taking it as he was feeling poorly. I have also sent fecal calprotectin. This is a marker for intestinal inflammation. not yet returned. [place] [facility] [place], and discussed his diagnosis with GI claim professional, Dr Dilcia Johnson. She was able to review chart and relay information to me. This patient does not have inflammatory bowel disease. He has constipation. he does not need mesalamine. he had colonoscopy in August 2023 and biopsies taken at that time did not showIBD. he saw Dr Tomas in Jan 2024, and this information was relayed. At that time, per the patient, he was rx'ed anusol HC, which he has been unable to fill- he thinks bc his insurance will not pay. he tells me that [facility] will not let him pay quinteros for this. he tells me that the mesalamine makes his hemorrhoids better, so he uses it. It would seem that he is getting the mesalamine through his PCP. Patient and family requested transfer on 10/24 They wee not happy with his care here. I reached out to [facility], who had no beds.. I reached out to [facility], and after speaking with GI, and discovering there is no need for GI consultation, I spoke w surgery. I spoke with Dr Justin Kong of [facility] at [facility] Kong has reviewed the patient's CT scans in detail. I reviewed the case with him in detail. he sees no medical indication for transfer of this patient. He did recommend looking at the wound once again, just to insure no wound infection. that was relayed to general surgery-with the improvement in WBC, lack of significant vac drainage, no periwound cellulitis and patient's tolerance for dressing changes, I will not do that today. He recommended appetite stimulants and ambulation. Patient seems to improved greatly overnight. This patient's diagnosis and treatment plan was discussed this AM with attending physician as a part of multi disciplinary rounding meeting. I have spent 55 minutes in the care of this patient today. This includes time [id number], review and ordering of diagnostic imaging and laboratory studies and consultation with other providers. Monitoring the patient's signs symptoms, evaluation of medication effectiveness and patient's response to treatment.
[2024-10-26] MEDS: HYDROmorphone 1 MG/ML CARPUJECT IVP PRN (19:16)
[2024-10-26] MEDS: ACETAMINOPHEN 1,000 MG/100 ML 1,000 MG/100 ML BAG IV SCH (21:14)
[2024-10-27 05:04] LABS: HCT - HEMATOCRIT 30.1 % (42.0-52.0); HGB - HEMOGLOBIN 9.9 g/dL (14.0-18.0); MEAN PLATELET VOLUME 9.0 fL (7.4-11.4); NRBC ABSOLUTE COUNT (AUTO) 0.00 x10^3/uL; NUCLEATED RED BLOOD CELLS AUTO 0.0 /100WBC; PLT - PLATELET COUNT 524 10^3/uL (130-450); RED CELL DISTRIBUTION WIDTH 12.8 % (12.0-15.0)
[2024-10-27 05:19] LABS: BUN - BLOOD UREA NITROGEN 11.0 mg/dL (6-20); CARBON DIOXIDE - CO2 27.0 mmol/L (21-32); CREATININE 0.6 mg/dL (0.6-1.3); GFR - MDRD 154.0 (>89)
[2024-10-27] MEDS: ACETAMINOPHEN 325 MG TABLET PO PRN (09:34)
[2024-10-27] MEDS: oxyCODONE 5 MG TABLET PO ONE (16:40)
--- NOTE | 2024-10-27 17:12 | PROVIDER PROGRESS NOTE ---
Subjective Prog Note Date Prog Note Date: 10/27/24 Subjective Subjective: He is eating and walking in the halls. he feels pretty good. he is getting stoma teaching. He is planning to go home with his dad, but has multiple discharge needs. Current Medications Current Medications Current Medications: Current Medications Generic Name Dose Route Start Last Admin Trade Name Freq PRN Reason Stop Dose Admin Acetaminophen 650 mg 10/27/24 09:19 10/27/24 15:57 Acetaminophen 325 Mg Tablet PO 650 mg Q4HR PRN Administration Pain or Fever > 38C (100.4F) Albuterol 2.5 mg 10/15/24 23:36 10/22/24 20:42 Albuterol Neb 2.5 Mg/3 Ml INH 2.5 mg RTQ4H PRN Administration Wheezing Budesonide 0.5 mg 10/16/24 07:00 10/27/24 07:58 Budesonide 0.5 Mg/2 Ml Neb INH Not Given RTBID DANIEL Calcium Carbonate/Glycine 500 mg 10/17/24 11:57 10/17/24 12:05 Calcium Carbonate Chew 500 Mg Tablet PO 500 mg BID PRN Administration Heartburn Ciprofloxacin 500 mg 10/27/24 21:00 Ciprofloxacin 250 Mg Tablet PO BID DANIEL Enoxaparin Sodium 40 mg 10/23/24 09:00 10/27/24 08:10 Enoxaparin 40 Mg/0.4 Ml Syringe SUBQ 40 mg DAILY DANIEL Administration Formoterol Fumarate 20 mcg 10/16/24 07:00 10/27/24 07:58 Formoterol Fumarate Neb 20 Mcg/2 Ml INH Not Given RTBID DANIEL Hydromorphone HCl 1 mg 10/26/24 16:48 10/27/24 11:43 Hydromorphone 1 Mg/Ml Carpuject IVP 1 mg Q2H PRN Administration Severe Pain (Level 7-10) Hydroxyzine Pamoate 50 mg 10/24/24 18:25 10/26/24 00:48 Hydroxyzine Pamoate 25 Mg Capsule PO 50 mg Q6H PRN Administration Insomnia Metoclopramide HCl 5 mg 10/20/24 19:31 10/26/24 04:33 Metoclopramide 10 Mg/2 Ml Vial IVP 5 mg Q6HR PRN Administration Nausea / Vomiting Metronidazole 500 mg 10/27/24 18:00 Metronidazole 250 Mg Tablet PO Q8H [facility] Multivitamins/Minerals 1 tab 10/23/24 09:00 10/27/24 08:10 Multivitamin W/Minerals Tablet PO 1 tab DAILYWM DNAIEL Administration Ondansetron HCl 4 mg 10/14/24 20:21 10/27/24 01:46 Ondansetron 4 Mg/2 Ml Vial IVP 4 mg Q6HR PRN Administration Nausea / Vomiting Oxycodone HCl 5 mg 10/25/24 11:52 10/26/24 10:17 Oxycodone 5 Mg Tablet PO 5 mg Q4HR PRN Administration Moderate Pain (Level 4-6) Oxycodone HCl 10 mg 10/26/24 18:42 10/27/24 13:06 Oxycodone 5 Mg Tablet PO 10 mg Q4HR PRN Administration Severe Pain (Level 7-10) Pantoprazole Sodium 40 mg 10/17/24 12:00 10/27/24 06:41 Pantoprazole 40 Mg Tablet PO 40 mg QDAC DANIEL Administration Phenol/Menthol 2 sprays 10/19/24 09:23 10/23/24 21:15 Phenol Throat [place] 177 Ml MM 2 sprays Q4HR PRN Administration Mouth Sore Pain Prochlorperazine Edisylate 10 mg 10/18/24 14:43 10/27/24 09:44 Prochlorperazine 10 Mg/2 Ml Vial IVP 10 mg Q6HR PRN Administration Nausea / Vomiting Sodium Chloride 10 ml 10/14/24 20:21 10/27/24 03:03 Sodium Chloride Flush 0.9% 10 Ml Syringe IVP 10 ml PRN PRN Administration NEEDED PER PROVIDER ORDERS Sodium Chloride 10 ml 10/15/24 01:00 10/27/24 15:58 Sodium Chloride Flush 0.9% 10 Ml Syringe IVP Not Given 0100,0900,1700 DANIEL Throat Lozenges 1 lozenge 10/16/24 05:25 10/16/24 06:20 Benzocaine/Menthol Lozenge MM 1 lozenge Q2HR PRN Administration Throat pain Trazodone HCl 50 mg 10/18/24 21:37 10/26/24 23:42 Trazodone 50 Mg Tablet PO 50 mg QPM PRN Administration sleep Objective Vital Signs/Intake & Output Reviewed Vital Signs: Yes Vital Signs: Vital Signs x48h Temp Pulse Resp BP Pulse Ox 10/27/24 15:53 36.5 C 85 20 151/80 H 94 Intake & Output: Intake & Output 10/24/24 10/25/24 10/26/24 10/27/24 23:59 23:59 23:59 23:59 Intake Total 3978 / 3978 4184 / 4184 2060 / 2060 1157 / 1157 Output Total 3100 / 3100 3125 / 3125 706 / 706 525 / 525 Balance 878 / 878 1059 / 1059 1354 / 1354 632 / 632 Weight (kg) 117 kg 91 kg 116 kg 115 kg Objective General Appearance: positive No acute distress and Alert Eyes Bilateral: positive Normal inspection and Conjunctivae nml ENT: positive ENT inspection nml Neck: positive Nml inspection Respiratory: positive No respiratory distress and Breath sounds nml Cardiovascular: positive Regular rate & rhythm Back: positive Nml inspection Skin: positive Color nml and No rash Extremities: positive No pedal edema Neurologic/Psychiatric: positive Oriented x3 Comments/Other: Wound vac changed today. wound is 25 cm in length. depth a deepest about 3cm. there is a 4cm tunnel at the inferior aspect of the wound. The width is about 5cm at widest point. see separate procedure note for vac placement. Lab Results 10/27/24 04:31 10/27/24 04:31 Other Labs: Lab Results x24hrs 10/27/24 10/23/24 Range/Units 04:31 14:30 WBC 13.6 H (4.8-10.8) x10^3/uL RBC 3.30 L (4.70-6.10) 10^6/uL Hgb 9.9 L (14.0-18.0) g/dL Hct 30.1 L (42.0-52.0) % MCV 91.2 (80.0-94.0) fL MCH 30.0 (27.0-31.0) pg MCHC 32.9 (32.0-36.0) g/dL RDW 12.8 (12.0-15.0) % Plt Count 524 H (130-450) 10^3/uL MPV 9.0 (7.4-11.4) fL Neut # (Auto) 10.4 H (1.5-6.6) 10^3/uL Lymph # (Auto) 1.6 (1.5-3.5) 10^3/uL [place] # (Auto) 1.1 H (0.0-1.0) 10^3/uL Eos # (Auto) 0.3 (0.0-0.7) 10^3/uL Baso # (Auto) 0.1 (0.0-0.1) 10^3/uL Absolute Nucleated RBC 0.00 x10^3/uL Nucleated RBC % 0.0 /100WBC Sodium 134 L (135-145) mmol/L Potassium 4.2 (3.5-4.5) mmol/L Chloride 102 (101-111) mmol/L Carbon Dioxide 27 (21-32) mmol/L Anion Gap 5.0 L (6-13) BUN 11 (6-20) mg/dL Creatinine 0.6 (0.6-1.3) mg/dL Estimated GFR (MDRD) 154 (>89) Glucose 101 (74-104) mg/dL Calcium 8.2 L (8.5-10.3) mg/dL Stool Calprotectin 13 (0-120) ug/g ABX Reporting Has patient been on IV antibiotics over the past 48 hours?: Yes Assessment/Plan Problem List (1) Sepsis: Impression: Sepsis secondary to bowel perforation Blood cultures without growth x 5 days. WBC 13.6 today, trend is favorable. 2 Laboratory Tests 10/21/24 10/22/24 10/23/24 05:26 05:05 05:22 WBC 16.2 H 19.3 H 21.1 H 10/24/24 10/25/24 04:59 06:58 WBC 19.4 H 16.7 H (2) Perforation of sigmoid colon due to diverticulitis: Impression: OR on 10/15 for ex lap with colon resection and colostomy. POD #12 vac change 10/21- to be left in place for one week per general surgery. Changed 10/27. Please see my separate note. He is tolerating a diet, and walking. his stoma is productive and stool is becoming more firm Managing pain in conjunction with general surgery Pain meds:Acetominophen changed to PO. He is getting 5-10mg of oxycodone every 4 hours with IV dilaudid for breakthrough pain. He is still getting frequent dilaudid, indicating the need for parenteral pain control 7 doses of IV pain meds in the last 24 hours. The need for parenteral narcotics is the thing that may keep this patient in the hospital at this point, although at some point, we will need to encourage him to do without. Wound vac has been very effective. Vac taken down this afternoon with Dr Roa in attendance. Progress of healing is good. I am awaiting insurance approval for home vac. This peel and stick dressing that was placed today can stay in place until 11/03 when he is seen at wound care. Discussed with wound care [employer] CO[employer], Christal De Jesus who will take over his wound care. home health referral in place as well. Stoma output was neg for C diff. Cipro and flagyl were started on 10/22, and changed to oral 10/27. Stool studies remain pending. there has been no change in character of the MARTÍNEZ output- scant and serous with occasional fibrinous exudate. I removed the MARTÍNEZ 10/26 (3) Leukocytosis: Impression: elevated WBC. C diff PCR negative. I have sent stool cultures as well as C diff PCR. Stool cultures are negative for Salmonella/shigella, campylobacter, and E coli toxin. The intraop cultures are not revealing, expected heidy associated with stool. Trend is favorable. I have ordered repeat CBC for the AM. As long as WBC downtrending, OK to go home before WBC normalized. Fecal calprotectin is normal. There is no indication for inflammatory bowel disease being a factor. (4) History of chronic ulcerative colitis: Impression: He was on mesalamine until approx 2 weeks ago, stopped taking it as he was feeling poorly. Fecal calprotectin is negative. [facility], and discussed his diagnosis with GI senior qa automation engineer, Dr Dilcia Johnson. She was able to review chart and relay information to me. This patient does not have inflammatory bowel disease. He has constipation. he does not need mesalamine. he had colonoscopy in August 2023 and biopsies taken at that time did not showIBD. he saw Dr Tomas in Jan 2024, and this information was relayed. At that time, per the patient, he was rx'ed anusol HC, which he has been unable to fill- he thinks bc his insurance will not pay. he tells me that [facility] will not let him pay quinteros for this. he tells me that the mesalamine makes his hemorrhoids better, so he uses it. It would seem that he is getting the mesalamine through his PCP. Patient and family requested transfer on 10/24 They wee not happy with his care here. I reached out to [facility], who had no beds.. I reached out to [facility], and after speaking with GI, and discovering there is no need for GI consultation, I spoke w surgery. I spoke with Dr Justin Kong of [facility] at [facility] Kong has reviewed the patient's CT scans in detail. I reviewed the case with him in detail. he sees no medical indication for transfer of this patient. He did recommend looking at the wound once again, just to insure no wound infection. that was relayed to general surgery-with the improvement in WBC, lack of significant vac drainage, no periwound cellulitis and patient's tolerance for dressing changes, I will not do that today. He recommended appetite stimulants and ambulation. Patient seems to improved greatly overnight. This patient's diagnosis and treatment plan was discussed this AM with attending physician as a part of multi disciplinary rounding meeting. I have spent 52 minutes in the care of this patient today. This includes time [id number], review and ordering of diagnostic imaging and laboratory studies and consultation with other providers. Monitoring the patient's signs symptoms, evaluation of medication effectiveness and patient's response to treatment. Exclusive of time in procedure.
--- NOTE | 2024-10-27 17:50 | WOUND CARE PROGRESS NOTE ---
Conclusion and Plan Problem List (1) Sepsis: (2) Perforation of sigmoid colon due to diverticulitis: (3) Leukocytosis: (4) History of chronic ulcerative colitis: (5) Colostomy care: Assessment/Plan: Ostomy education to pt and family to promote independent ostomy care at home. Plan Plan: Patient lying in bed resting comfortably. Patient's father at the bedside. Both are prepared to receive ostomy education. Reviewed anatomy and physiology with patient and son. Plan is for temporary colostomy for 3 to 6 months with reversal at that time as long as no complications have occurred. Explained procedure for formation of stoma and described normal appearance. Verbally reviewed steps needed for ostomy wafer change. Wafer was then removed from the left lower quadrant of the abdomen. Stoma is bright beefy red and protrudes above the level of the abdomen approximately 1 to 1.5 cm. Sutures are visible to the circumference. Patient had small amount of fairly liquid dark green effluent with scattered pieces of frondy fibrous component. Stoma measures 45 mm x 35 mm, is oval in shape. Slight peristomal irritation is noted to the immediate peristomal area. No erythema or increased warmth is present to the site. Area cleansed with normal saline, dried with gauze. Placed 57 mm wafer and pouch with [id number] instructions to the patient's father. He participated in all aspects of the care. Patient's father Nghia, verbalized understanding of the procedure and feels that he will be able to easily care for the patient until he is able to be independent in ostomy care. Warm blanket placed to help with adherence of the wafer to the peristomal skin. Wafer intact and in place at end of procedure. Also discussed diet, clothing, intimacy and travel and the effects of ostomy care on each one. Provided a handout listing appropriate websites for additional information. Reviewed suppliers and recommended they contact their insurance company to find out if they have a preferred supplier. If not, they can choose from any of the suppliers listed or search out local suppliers. Provided an additional copy of colostomy care from [facility]. Provided the patient with a copy of a [employer] catalog and discussed using it as a reference to find the identification numbers of what ever system they choose to use. Patient has given me permission to order samples from [employer], [employer], and [employer], the 3 main manufacturers of ostomy supplies. They will provide samples to the patient along with opportunities for additional education and information. This will be ordered on Saturday. Patient has an appointment scheduled in the wound clinic for next Saturday. We will be happy to provide assistance with wound VAC and ostomy care. Patient and family members are aware of the appointment. Patient's mother unable to arrive in time for the majority of the ostomy education. Patient and his father will assist her by teaching her. As always, we are a resource for any concerns or problems that may arise. No further education is planned as patient is tentatively scheduled for discharge tomorrow. Time spent- 1630 until 1800. 90 mins including charting time. Results Lab Results: Laboratory Results Sodium 134 mmol/L (135-145) L 10/27/24 04:31 Potassium 4.2 mmol/L (3.5-4.5) 10/27/24 04:31 Chloride 102 mmol/L (101-111) 10/27/24 04:31 Carbon Dioxide 27 mmol/L (21-32) 10/27/24 04:31 Anion Gap 5.0 (6-13) L 10/27/24 04:31 BUN 11 mg/dL (6-20) 10/27/24 04:31 Creatinine 0.6 mg/dL (0.6-1.3) 10/27/24 04:31 Glucose 101 mg/dL (74-104) 10/27/24 04:31 Calcium 8.2 mg/dL (8.5-10.3) L 10/27/24 04:31 Total Bilirubin 1.3 mg/dL (0.2-1.0) H 10/24/24 04:59 AST 21 IU/L (10-42) 10/24/24 04:59 ALT 29 IU/L (10-60) 10/24/24 04:59 Alkaline Phosphatase 105 IU/L (42-121) 10/24/24 04:59 Total Protein 5.9 g/dL (6.4-8.9) L 10/24/24 04:59 Albumin 2.8 g/dL (3.2-5.5) L 10/24/24 04:59 Globulin 3.1 g/dL (2.1-4.2) 10/24/24 04:59 Albumin/Globulin Ratio 0.9 (1.0-2.2) L 10/24/24 04:59 10/23/24 14:30 Stool Salmonella/Shigella Screen - Final 10/23/24 14:30 Stool Stool Culture Result 1 - Final 10/23/24 14:30 Stool Campylobacter Culture - Final 10/23/24 14:30 Stool Campylobacter Result 1 - Final 10/23/24 14:30 Stool Escherichia coli Shiga Toxins EIA - Final 10/15/24 21:00 Peritoneal Fluid Anaerobic Culture - Final 10/15/24 21:00 Peritoneal Fluid Anaerobic Culture Result 1 - Final 10/15/24 21:00 Peritoneal Fluid Anaerobic Culture Result 2 - Final 10/15/24 21:00 Peritoneal Fluid Aerobic Culture - Final 10/15/24 21:00 Peritoneal Fluid Aerobic Culture Result 1 - Final 10/15/24 21:00 Peritoneal Fluid Aerobic Culture Result 2 - Final 10/14/24 17:53 Blood - Right Arm Blood Culture - Final NO GROWTH AFTER 5 DAYS 10/14/24 17:42 Blood Blood Culture - Final NO GROWTH AFTER 5 DAYS Exam Exam Vital Signs: Vital Signs x48h Temp Pulse Resp BP Pulse Ox 10/27/24 15:53 36.5 C 85 20 151/80 H 94 Physician Wound Note Wound Note (Multiple) Abdomen: Wound Type: Surgical incision Trauma: Laceration Pre Measurements Pre Wound Surface Area: 0 cm sq Wound Description Exudate Type: Sero-sanguineous Exudate Color: Red Exudate Amount: Copious Wound Comment(s): has wound vac, will be changed by Jessica & surgeon Pain
--- NOTE | 2024-10-27 18:32 | PROVIDER PROGRESS NOTE ---
Subjective General Admit Date: 10/14/24 Procedure Date: 10/15/24 Post Op Days: 12 Procedure Performed: open sigmoid colon rescection and end colostomy, washout Other Other Information/Narrative: Patient is progressing and healing very well. Marked improvement. Wound Assessment Drain Type: Wound vac changed and there is excellent granulation Review of Systems Both the patient and his mother expressed concerns about the care here at [facility]. Status of ROS: 10 or more systems reviewed and unremarkable except as noted in history and below Exam Exam Vital Signs: Vital Signs x48h Temp Pulse Resp BP Pulse Ox 10/27/24 15:53 36.5 C 85 20 151/80 H 94 General: 34-year-old male, appears stated age, appears slightly somnolent, covered with only a sheet, has a fan blowing on him HEENT: Normocephalic, atraumatic, extraocular movement intact, mucous membranes pink and moist, sclera anicteric and not injected Neck: Supple without pain on palpation, mass or bruit Cardiac: Regular rate and rhythm without rub, gallop, or murmur Chest: Even more improvement today - clearer throughout. Abdomen: Normal bowel sounds, wound VAC removed and excellent granulation tissue with some tunneling infraumbilically heading cephalad, no peritoneal findings, ostomy pink and productive Genitourinary: Deferred Rectal: Deferred Extremities: No gross neurovascular problem, no clubbing, cyanosis or edema Gait: Ambulating fantastically multiple times today. Psychiatric: Alert and oriented to person place and time, asks and answers questions appropriately, mood and affect appropriate ABX Reporting Has patient been on IV antibiotics over the past 48 hours?: Yes Impression/Plan Problem List (1) Sepsis: (2) Perforation of sigmoid colon due to diverticulitis: (3) Leukocytosis: (4) Colostomy care: Plan Postop day 12 status post sigmoidectomy with end colostomy and Montes's pouch, extensive abdominal washout and placement of a drain ID) Patient has improved tremendously and although at risk this is markedly less. White blood cell count is lowest it has been during this hospitalization. FEN) General diet. Wound) Continue wound VAC but switched to weekly variety.. Activity) He is doing remarkably well - thank you to PT. Pain) Controlled. Discussed the fact that we would let 9 to 12 months pass prior to taking down his colostomy and placing him in continuity. He is clearly healing and improving daily.
[2024-10-27] MEDS: CIPROFLOXACIN 250 MG TABLET PO SCH (20:31)
--- NOTE | 2024-10-27 22:55 | PROCEDURE REPORT ---
Hospitalist Procedure Note Procedure Note Procedure Note: Wound vac application to midline abdominal wound. Vac placed almost one week ago. replaced by me with peel and stick vac at the request of wound care team, who he will see in one week as outpatient. The peel and stick vac required expert application to achieve seal around the edge of the stoma appliance set up. This was not a simple vac application. Wound is 25cm in length, has a 4cm tunnel at inferior aspect, deepest depth 3cm, 5cm at widest point. excellent beefy red granulation tissue with minimal ooze. Started with peel and stick, trimmed to edge of sponge to accomodate stoma appliance, then reinforced with carefully trimmed drape around the stoma bag. had to cut one of the three tabs off stoma bag to allow the vac and drope to fit appropriately ,but ultimately achieved excellent seal without alarms. Vac set to 125mmHg, checked several hours later, leak or alarms. Patient tolerated the procedure well.
[2024-10-28 06:24] LABS: HCT - HEMATOCRIT 34.6 % (42.0-52.0); HGB - HEMOGLOBIN 11.1 g/dL (14.0-18.0); MEAN PLATELET VOLUME 8.7 fL (7.4-11.4); NRBC ABSOLUTE COUNT (AUTO) 0.00 x10^3/uL; NUCLEATED RED BLOOD CELLS AUTO 0.0 /100WBC; PLT - PLATELET COUNT 734 10^3/uL (130-450); RED CELL DISTRIBUTION WIDTH 12.7 % (12.0-15.0)
[2024-10-28 06:43] LABS: BUN - BLOOD UREA NITROGEN 10.0 mg/dL (6-20); CARBON DIOXIDE - CO2 28.0 mmol/L (21-32); CREATININE 0.7 mg/dL (0.6-1.3); GFR - MDRD 129.0 (>89)
--- NOTE | 2024-10-28 08:07 | PROVIDER PROGRESS NOTE ---
Subjective General Admit Date: 10/14/24 Procedure Date: 10/15/24 Post Op Days: 13 Procedure Performed: open sigmoid colon rescection and end colostomy, washout Wound Assessment Drain Type: Wound vac changed and there is excellent granulation Review of Systems Both the patient and his mother expressed concerns about the care here at [facility]. Status of ROS: 10 or more systems reviewed and unremarkable except as noted in history and below Exam Exam Vital Signs: Vital Signs x48h Temp Pulse Resp BP Pulse Ox 10/28/24 15:41 36.5 C 107 H 16 155/94 H 95 General: 34-year-old male, appears stated age, sleeping comfortably HEENT: Normocephalic, atraumatic, extraocular movement intact, mucous membranes pink and moist, sclera anicteric and not injected Neck: Supple without pain on palpation, mass or bruit Cardiac: Regular rate and rhythm without rub, gallop, or murmur Chest: Clear bilaterally. Abdomen: Decreased but improved bowel sounds, wound VAC in place and functioning well without leak, no peritoneal findings, ostomy pink and productive Genitourinary: Deferred Rectal: Deferred Extremities: No gross neurovascular problem, no clubbing, cyanosis or edema Gait: Not evaluated as I did not see him ambulate today. Psychiatric: Alert and oriented to person place and time, asks and answers questions appropriately, mood and affect appropriate Impression/Plan Problem List (1) Sepsis: (2) Perforation of sigmoid colon due to diverticulitis: (3) Leukocytosis: Plan Agree with discharge today. Continued wound VAC at home. Home health to help with wound VAC and ostomy care. Have patient see me or Dr. Plunkett in 2 weeks.
[2024-10-28] MEDS: ONDANSETRON ODT 4 MG TABLET TL PRN (08:14)
[2024-10-28 15:42] VITALS: BP 155/94; TEMP 97.7; O2SAT 95
--- NOTE | 2024-10-28 16:04 | Discharge Summary ---
Discharge Summary Admit Date: 10/14/24 Discharge Date: 10/28/24 Discharging Provider: Jarrett Bahena Primary Care Provider: Thais Reyes Code Status: Attempt Resuscitation DIAGNOSES Admission Diagnoses: Sepsis Diverticulitis of colon with perforation Generalized anxiety disorder Discharge Diagnoses with Status of Each Condition: Sepsisresolved Diverticulitis of colon with perforationunderwent ex lap with colostomy and colectomy LeukocytosisContinuing antibiotics History of ulcerative colitis/chronic HPI History of Present Illness: 34-year-old male with history of bipolar disorder as well as ulcerative colitis who presents with abdominal pain x 2 days. He states it was very severe yesterday, but today it was severe enough that he cried most of the day. He also reports subjective fever starting today. Reports last bowel movement 2 days ago. Denies chest pain, dyspnea, urinary abnormality. In the ER, CT abdomen/pelvis was performed which showed acute sigmoid diverticulitis with evidence of perforation. He was given multiple doses of narcotic pain medicine to include a total of 150 mcg of fentanyl, 5 mg diazepam, 10 mg morphine. General surgery was contacted by ER provider, who recommended admission to medicine with surgery consultation. In discussion with the on-call surgeon, it appears to be a very small, contained Perforation. Patient therefore was admitted to hospitalist service for medical management of diverticulitis with perforation. General surgery to follow HOSPITAL COURSE Hospital Course: Patient was admitted into the hospital for medical management of his diverticulitis as his perforation appeared contained. His condition worsened, and on 10/15 he underwent ex lap with colon resection and colostomy. His abdomen was left open with wound VAC. His stay was complicated by a postoperative ileus, which was managed with bowel rest. He has had returned of bowel function, and has been able to ambulate and has had output in his ostomy. He is discharging home with wound VAC, and will be seen in the outpatient setting for management of this. He has been discharged on another week of ciprofloxacin and Flagyl. He has been instructed to follow-up with general surgery ALLERGIES Allergies Allergy/AdvReac Type Severity Reaction Status Date / Time No Known Drug Allergies Allergy Verified 10/14/24 16:33 MEDICATIONS Ambulatory Orders Medication Instructions Recorded Confirmed esomeprazole magnesium 20 mg 20 mg PO DAILY 11/21/17 0 10/15/24 capsule,delayed release (Nexium 24HR) allopurinol 100 mg tablet 100 mg PO BID PRN gout 12/1710/14/24 mesalamine 1,000 mg rectal 1 g WA DAILY 12/18/2310/15 suppository trazodone 100 mg tablet 100 - 200 mg PO HS 12/18/23 10/15/24 albuterol sulfate 90 mcg/actuation 2 puff inhalation 6 XD PRN 05/04/24 10/15/24 aerosol inhaler (Proventil HFA) shortness of breath or wheezing #8.5 grams fluticasone propionate 45 2 puff inhalation BID #12 gr ams 05/04/24 10/15/24 mcg-salmeterol 21 mcg/actuation HFA inhaler (Advair HFA) armodafinil 150 mg tablet 150 - 300 mg PO DAILY PRN NO N 10/14/24 10/15/24 ADDERALL DAYS dextroamphetamine-amphetamine 20 10 - 20 mg PO Q3H PRN ADHD SYMPTOMS 10/15/24 10/15/24 mg tablet ciprofloxacin HCl 250 mg tablet 500 mg (2 x 250 mg) PO BID 7 days 10/28/24 #28 tabs hydromorphone 2 mg tablet 2 mg PO Q4H PRN pain #20 tab s 10/28/24 metronidazole 250 mg tablet 500 mg (2 x 250 mg) PO TID 7 days 10/28/24 #42 tabs PHYSICAL EXAM AT DISCHARGE Vital Signs: Vital Signs x48h Temp Pulse Resp BP Pulse Ox 10/28/24 15:41 36.5 C 107 H 16 155/94 H 95 10/28/24 09:00 36.3 C L 92 18 140/88 H 94 General Appearance: positive No acute distress and Alert Eyes Bilateral: positive Normal inspection and PERRL ENT: positive ENT inspection nml Neck: positive Nml inspection Respiratory: positive Chest non-tender and No respiratory distress Cardiovascular: positive Regular rate & rhythm Peripheral Pulses: positive 2+ Abdomen: positive Tenderness and Other (Wound VAC in place. Ostomy with output) Back: positive Nml inspection Skin: positive Color nml Extremities: positive Non-tender Neurologic/Psychiatric: positive Oriented x3 LABS 10/28/24 05:59 10/28/24 05:59 SEPSIS Current Stage of Sepsis: Resolved Possible source of Sepsis: GI tract/intra-abdominal FOLLOW UP Follow Up: PCP, Surgery, Wound care TIME SPENT Time Spent in Discharge (Minutes): 37 Discharge Plan Discharge Patient Disposition: 01 Home, Self Care Condition: Fair Prescriptions: New ciprofloxacin HCl 250 mg Tablet 500 mg PO BID 7 Days Qty: 28 0RF metronidazole 250 mg Tablet 500 mg PO TID 7 Days Qty: 42 0RF hydromorphone 2 mg tablet 2 mg PO Q4H PRN (Reason: pain) Qty: 20 0RF Continued albuterol sulfate [Proventil HFA] 90 mcg/actuation HFA aerosol inhaler 2 puff inhalation 6XD PRN (Reason: shortness of breath or wheezing) Qty: 8.5 2RF fluticasone propion-salmeterol [Advair HFA] 45-21 mcg/actuation HFA aerosol inhaler 2 puff inhalation BID Qty: 12 2RF esomeprazole magnesium [Nexium 24HR] 20 MG capsule,delayed release(DR/EC) 20 mg PO DAILY trazodone 100 mg tablet 100 - 200 mg PO HS Rx Instructions: Take 2 tablet by mouth every night at bedtime prescribed elsewhere for sleep armodafinil 150 mg tablet 150 - 300 mg PO DAILY PRN (Reason: NON ADDERALL DAYS) Patient Comments: Take 1 TO 2 tablets BY MOUTH in the MORNING with a meal or snack and full glass of liquid only on days that Adderall is not utilized . Max of 2 tablets per day. dextroamphetamine-amphetamine 20 mg tablet 10 - 20 mg PO Q3H PRN (Reason: ADHD SYMPTOMS) Patient Comments: Take 1/2 to 1 tablet by mouth every 3 to 5 hours for ADHD symptoms. Max of 2 & 1/2 tablets or 50mg per day. Rx Instructions: NOT TO EXCEED 50 MG DAILY allopurinol 100 mg tablet 100 mg PO BID PRN (Reason: gout) mesalamine 1,000 mg suppository 1 g WA DAILY Activity Restrictions: Additional Comments Activity Restrictions/Additional Instructions: no lifting for 6 weeks, nothing heavier than a gallon of milk (that is 8 pounds- the true restriction is 10 pounds, but its a good rule of thumb. Diet: Regular Health Concerns: You came into the hospital with diverticulitis that had perforated. He went to the OR and had the section of colon cut out and a colostomy was placed. You are being discharged home on oral antibiotics, with rapid follow-up with surgery. I am writing you for some pain medication and some medication for nausea. If the vac alarms- during the day, call the MAC immediately, you will probably need help. At night, call the customer service, but recognize that you will probably have to come to the ER. If you have to come up here after hours, have them ask if Jessica Zari is here, I will come help fix it. If Christal ColeFredimio is here, she should help you, not Jessica. If you cannot get up here and it is alarming, then you need to take of the vac and put gauze and tape on the wound until you can be seen and the vac replaced. Print Language: Afghan Patient Instructions: Surg Dc Follow-up Care: Thais Reyes NP [Primary Care Provider, Family Practice] Hussein Roa MD [Provider Admit Priv/Credential, Surgery, General] Vitals documented within 30 minutes of discharge?: Yes
== END 2024-10-28 15:42 | disposition home or self-care (01) | DRG 853 ==
LOC: ED 16:12 → MS2 19:38
PROVIDERS: ADMIT Nurse Practitioner Acute Care; ATTEND Nurse Practitioner Acute Care